=== PATIENT | female | born 1935 | race Caucasian/White ===

== ENCOUNTER → 2016-08-28 | Outpatient (CLI) | payer MEDICARE ==
[2016-08-20 15:00] VITALS: BP 139/69
[~2016-08-28] MED LIST: ACET325T21 PO; ALPR0.25 PO; ALPR0.254 PO; AMLO-254 PO; AMLO5TAB4 PO; ASPI-482 PO; ASPI81TA2 PO; ATEN25TA PO; ATEN50TA PO; CALC-67 PO; CHOL20002 PO; CHOL400C2 PO; DONE5TAB33 PO; ESCI20TA10 PO; FERR325T31 PO; FURO40TA4 PO; HYDR-2678 PO; HYDR200T PO; HYDR200T5 PO; IRON18TA PO; LEVO100T5 PO; LEVO500T38 PO; LEVO88TA4 PO; LOSA100T6 PO; OMEG1CAP16 PO; OMEG1CAP6 PO; PANT40TA3 PO; PILO5TAB PO; POTA20IV IV; POTA20TA82 PO; PRAM0.25 PO; TRAM50TA PO; VALS160T3 PO; VITA100C4 PO; VITA100T5 PO
--- NOTE | 2016-08-28 12:09 | KCIC ---
PROCEDURE CT head without contrast. HISTORY Increased confusion, elevated blood pressure, depression, dementia. TECHNIQUE Helical CT imaging of the brain is performed without IV contrast. PQRS: One or more the following individualized dose reduction techniques were utilized for the study: 1. Automated exposure control. 2. Adjustment of the mA and/or kV according to patient size. 3. Use of iterative reconstruction technique. COMPARISON None. FINDINGS There is no midline shift or mass effect. No extra-axial fluid collection or intraparenchymal hemorrhage. Martinez-white matter differentiation is preserved. The ventricles and sulci are prominent, consistent with age-related cerebral atrophy. Ventricles are out of proportion to sulci which may reflect central atrophy. In the appropriate clinical setting normal pressure hydrocephalus is another consideration. There is periventricular white matter hypoattenuation, nonspecific but commonly due to chronic small vessel ischemic disease in a patient of this age. Tiny mucous retention cyst or polyp of left sphenoid sinus. The other visualized paranasal sinuses and mastoid air cells are clear. The globes and orbits appear intact. No acute calvarial abnormality. IMPRESSION 1. No acute intracranial abnormality. 2. Senescent changes. Electronically signed by: Isai Urbina MD (Aug 28, 2016 12:08:48)
== END | disposition home or self-care (01) ==
LOC: KCIC CT 10:00
DX: R41.0 Disorientation, unspecified (principal)
CPT/HCPCS: 70450

== ENCOUNTER 2016-09-15 09:39 | Inpatient (IN) | payer MEDICARE ==
[~2016-09-15] VITALS: Ht 167.6 cm; Wt 68.6 kg
[2016-09-15] MEDS ORDERED: IV NORMAL SALINE 1000ML BAG 1,000 ML IV ONE ×2 (10:15→17:15)
--- NOTE | 2016-09-15 10:37 | PHYS DOC ---
Past Medical History Past Medical History: Dementia, Depression, Hypertension, Hypothyroid, Renal Disease Additional Past Medical Histor: RLS, LINK monitor, PARKINSONS,VIT B DEF Past Surgical History: Other Additional Past Surgical Histo: Colon Resection, hemorroidectomy Alcohol Use: None Drug Use: None Adult General Chief Complaint Chief Complaint: ALTERED MENTAL STATUS HPI HPI Patient is a 80 year old female who presents with altered mental status. The patient's symptoms have been present for the past week and have progressively gotten worse. The patient has history of dementia and at baseline is confused but alert and talkative. The patient has had increasing lethargy since time of onset. Patient has had decreased oral intake during that time. Patient was recently treated for urinary tract infection and has finished antibiotic therapy. No reported fevers. Patient unable to provide any history due to altered mental status. Patient was found to be hypoxic by nursing staff and placed on 2 L nasal cannula. Review of Systems Review of Systems Unable to obtain from patient due to profound confusion Current Medications Current Medications Current Medications Medications (Trade) Dose Ordered Sig/Kathrine Start Time Stop Time Status Last Admin Dose Admin Sodium Chloride (Iv Sodium Chloride 0.9% 1000ml Bag) 1,000 ml @ 125 mls/hr 1X ONCE 09/15/16 10:15 09/15/16 18:14 09/15/16 11:45 125 MLS/HR Allergies Allergies Allergies Coded Allergies Type Severity Reaction Last Updated Verified naproxen Allergy Intermediate 11/02/14 Yes lisinopril Allergy Mild COUGH 01/10/15 Yes donepezil Adverse Reaction Mild 08/16/16 Yes Physical Exam Physical Exam Constitutional: Lethargic, confused, follows commands, afebrile [] HENT: Normocephalic, atraumatic, bilateral external ears normal, oropharynx moist, no oral exudates, nose normal. [] Eyes: PERRLA, EOMI, conjunctiva normal, no discharge. [] Neck: Normal range of motion, no tenderness, supple, no stridor. [] Cardiovascular:Heart rate regular rhythm, no murmur [] Lungs & Thorax: Mildly restricted air movement bilaterally, rhonchi bilaterally , no rales [] Abdomen: Bowel sounds normal, soft, no tenderness, no masses, no pulsatile masses. [] Skin: Warm, dry, no erythema, no rash. [] Back: No tenderness, no CVA tenderness. [] Extremities: No tenderness, no cyanosis, no clubbing, ROM intact, no edema. [] Neurologic: Lethargic, oriented to self only, normal motor function, normal sensory function, no focal deficits noted. [] Current Patient Data Vital Signs Vital Signs Date Time Temp Pulse Resp B/P Pulse Ox O2 Delivery O2 Flow Rate FiO2 09/15/16 10:40 70 18 140/68 95 Nasal Cannula 2 09/15/16 09:39 99.0 99.0 Lab Values Laboratory Tests Test 09/15/16 09:52 09/15/16 10:35 White Blood Count 13.7x10^3/uL (4.0-11.0) H Red Blood Count 3.73x10^6/uL (3.50-5.40) Hemoglobin 10.9g/dL (12.0-15.5) L Hematocrit 32.9% (36.0-47.0) L Mean Corpuscular Volume 88fL (79-100) Mean Corpuscular Hemoglobin 29pg (25-35) Mean Corpuscular Hemoglobin Concent 33g/dL (31-37) Red Cell Distribution Width 14.0% (11.5-14.5) Platelet Count 166x10^3/uL (140-400) Neutrophils (%) (Auto) 85% (31-73) H Lymphocytes (%) (Auto) 6% (24-48) L Monocytes (%) (Auto) 8% (0-9) Eosinophils (%) (Auto) 0% (0-3) Basophils (%) (Auto) 0% (0-3) Neutrophils # (Auto) 11.7x10^3uL (1.8-7.7) H Lymphocytes # (Auto) 0.8x10^3/uL (1.0-4.8) L Monocytes # (Auto) 1.1x10^3/uL (0.0-1.1) Eosinophils # (Auto) 0.0x10^3/uL (0.0-0.7) Basophils # (Auto) 0.0x10^3/uL (0.0-0.2) Sodium Level 137mmol/L (136-145) Potassium Level 4.9mmol/L (3.5-5.1) Chloride Level 102mmol/L (98-107) Carbon Dioxide Level 21mmol/L (21-32) Anion Gap 14 (6-14) Blood Urea Nitrogen 41mg/dL (7-20) H Creatinine 2.2mg/dL (0.6-1.0) H Estimated GFR (Cockcroft-Gault) 21.5 BUN/Creatinine Ratio 19 (6-20) Glucose Level 110mg/dL (70-99) H Lactic Acid Level 0.7mmol/L (0.4-2.0) Calcium Level 9.6mg/dL (8.5-10.1) Magnesium Level 1.9mg/dL (1.8-2.4) Total Bilirubin 0.3mg/dL (0.2-1.0) Aspartate Amino Transferase (AST) 33U/L (15-37) Alanine Aminotransferase (ALT) 26U/L (14-59) Alkaline Phosphatase 102U/L (46-116) Total Protein 7.1g/dL (6.4-8.2) Albumin 3.4g/dL (3.4-5.0) Albumin/Globulin Ratio 0.9 (1.0-1.7) L Urine Collection Type U cath Urine Color Yellow Urine Clarity Clear Urine pH 5.5 Urine Specific [place] 1.020 Urine Protein 30mg/dL (NEG-TRACE) Urine Glucose (UA) Negativemg/dL (NEG) Urine Ketones (Stick) Negativemg/dL (NEG) Urine Blood Negative (NEG) Urine Nitrite Negative (NEG) Urine Bilirubin Small (NEG) Urine Urobilinogen Dipstick 0.2mg/dL (0.2 mg/dL) Urine Leukocyte Esterase Negative (NEG) Urine RBC 0/HPF (0-2) Urine WBC 0/HPF (0-4) Urine Amorphous Sediment Present/HPF Urine Bacteria 0/HPF (0-FEW) Urine Opiates Screen Neg (NEG) Urine Methadone Screen Neg (NEG) Urine Barbiturates Neg (NEG) Urine Phencyclidine Screen Neg (NEG) Urine Amphetamine/Methamphetamine Neg (NEG) Urine Benzodiazepines Screen Pos (NEG) Urine Cocaine Screen Neg (NEG) Urine Cannabinoids Screen Neg (NEG) Urine Ethyl Alcohol Neg (NEG) Laboratory Tests 09/15/16 09:52 Laboratory Tests 09/15/16 09:52 EKG EKG Interpreted by me: Heart rate 70, sinus rhythm, normal intervals, normal axis, no acute ST/T-wave abnormalities present [] Radiology/Procedures Radiology/Procedures [address] [place] [address] IMAGING REPORT Signed PATIENT: ELSA SHUKLA ACCOUNT: [id number] : 1935 LOCATION: ER AGE: 80 SEX: F EXAM STATUS: PRE ER ORD. PHYSICIAN: NJ PALOMO MD REASON: cough, altered mental status PROCEDURE: PORTABLE CHEST 1V Single view chest History:cough, altered mental status An AP view of the chest is submitted. Comparison: 08/14/2016. Findings: There is no significant infiltrate, pleural effusion, or pneumothorax. The pericardial cardiac silhouette is within normal limits in size. The trachea is in the midline. There is atherosclerotic carotid calcification aortic arch, somewhat tortuous thoracic aorta. Impression: There is no evidence of acute cardiopulmonary disease. DICTATED and SIGNED BY: ESTEFANI WEAVER MD DATE: 09/15/16 1032 CC: NJ PALOMO MD; LUCERO WISE MD ~ [] Course & Med Decision Making Course & Med Decision Making Pertinent Labs and Imaging studies reviewed. (See chart for details) Patient started on IV fluids in the emergency department. The patient did not show any evidence of active infection on her workup. Patient's symptoms appear consistent with dehydration at this time. The patient will continue on IV hydration in hospital due to continued altered mental status. Patient admitted to Dr. Early. Dragon Disclaimer Dragon Disclaimer This electronic medical record was generated, in whole or in part, using a voice recognition dictation system. Departure Departure Impression: Primary Impression: Acute metabolic encephalopathy Additional Impressions: Acute renal failure Dehydration Disposition: ADMITTED INPATIENT Admitting Physician: Thomas Early Condition: STABLE Referrals: LUCERO WISE MD (PCP) Problem Qualifiers Additional Impressions: Acute renal failure Acute renal failure type: unspecified Qualified Code: N17.9 - Acute kidney failure, unspecified NJ PALOMO MD Sep 15, 2016 10:37
[2016-09-15 10:40] LABS: BASO % 0 % (0-3); EOS % 0 % (0-3); HEMATOCRIT 32.9 % (36.0-47.0); HEMOGLOBIN 10.9 g/dL (12.0-15.5); LYMPH # 0.8 x10^3/uL (1.0-4.8); LYMPH % 6 % (24-48); MEAN CORPUSCULAR HEMOGLOBIN 29 pg (25-35); MEAN CORPUSCULAR HGB CONC 33 g/dL (31-37); MEAN CORPUSCULAR VOLUME 88 fL (79-100); MONO % 8 % (0-9); NEUT % 85 % (31-73); PLATELET COUNT 166 x10^3/uL (140-400); RED BLOOD COUNT 3.73 x10^6/uL (3.50-5.40); WHITE BLOOD COUNT 13.7 x10^3/uL (4.0-11.0)
[2016-09-15 10:42] LABS: CALCIUM 9.6 mg/dL (8.5-10.1); CREATININE 2.2 mg/dL (0.6-1.0); GFR 21.5; POTASSIUM 4.9 mmol/L (3.5-5.1)
[2016-09-15 10:48] LABS: ALBUMIN 3.4 g/dL (3.4-5.0); ALBUMIN/GLOBULIN RATIO 0.9 (1.0-1.7); MAGNESIUM 1.9 mg/dL (1.8-2.4); TOTAL BILIRUBIN 0.3 mg/dL (0.2-1.0); TOTAL PROTEIN 7.1 g/dL (6.4-8.2)
[2016-09-15 10:51] LABS: BILIRUBIN,URINE SMALL (NEG); GLUCOSE,URINE NEGATIVE (NEG); NITRITE,URINE NEGATIVE (NEG); PH,URINE 5.5; PROTEIN,URINE 30 mg/dL (NEG-TRACE); UROBILINOGEN,URINE 0.2 mg/dL (0.2 mg/dL)
[2016-09-15 10:57] LABS: BARBITURATES NEG (NEG); BENZODIAZEPINES POS (NEG); CANNABINOIDS NEG (NEG); COCAINE NEG (NEG); METHADONE NEG (NEG); OPIATES NEG (NEG); PHENCYCLIDINE NEG (NEG)
[2016-09-15 11:10] LABS: BACTERIA,URINE 0 /HPF (0-FEW); ETHANOL, URINE NEG (NEG); RBC,URINE 0 /HPF (0-2); WBC,URINE 0 /HPF (0-4)
--- NOTE | 2016-09-15 12:23 | EKG ---
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
--- NOTE | 2016-09-15 14:11 | RAD ---
Head CT without contrast History:altered mental status Technique: Noncontrast CT imaging was acquired of the head. PQRS Compliance Statement: One or more of the following individualized dose reduction techniques were utilized for this examination: 1. Automated exposure control 2. Adjustment of the mA and/or kV according to patient size 3. Use of iterative reconstruction technique Comparison: 08/28/2016 Findings: There is again [id number] lateral and mild third ventriculomegaly, somewhat disproportionate to the sulcal spaces although mild generalized supratentorial atrophy present. No acute intracranial hemorrhage is identified. There is again some patchy mild ill-defined low-density of the supratentorial white matter bilaterally. There is atherosclerotic calcification of the carotid siphons bilaterally. There is now small air-fluid level of the left sphenoid sinus. There is no new significant intra-axial mass-effect, midline shift, or abnormal extra-axial fluid collection. There is no evidence of acute parenchymal or extraaxial hemorrhage. The mastoid air cells are aerated. No acute osseous abnormality is identified. Impression: 1. Intracranial findings are unchanged compared with previous exam. If there is suspicion for evolving or acute ischemia, follow-up CT or MRI may be beneficial. There is again third and lateral ventriculomegaly somewhat disproportionate to sulcal spaces, may be due to more central atrophy unless clinical suspicion for normal pressure hydrocephalus. Ill-defined low-density of the supratentorial white matter is nonspecific, most commonly due to chronic microvascular ischemic disease in a patient this age. 2. There is now tiny left sphenoid sinus air-fluid level.
[2016-09-15] MEDS: IV NORMAL SALINE 1000ML BAG 1,000 ML IV SCH ×5 (15:23→23:32)
[2016-09-15] MEDS ORDERED: ONDANSETRON PF 4 MG/2 ML VIAL. IV PRN ×2 (15:30→17:15)
[2016-09-15] MEDS ORDERED: ACETAMINOPHEN 325 MG TABLET. PO PRN ×2 (15:30→17:15)
--- NOTE | 2016-09-15 16:00 | ACF ---
Admission Forms Criteria MENTAL STATUS CHANGE Clinical Indications for Inpatient Care (Place 'X' for any and all applicable criteria): Ongoing inpatient care may be needed for ANY ONE of the following(1)(2)(3)(5)(6) : [X]I. Suspected serious etiology (eg, medical disorder, PLANT GUIDE event) of mental status change [ ]II. Danger to self or others not manageable at lower level of care [ ]III. Grave disability (eg, inability to perform self care necessary at lower level of care) [ ]IV. Agitation or inappropriate behavior interfering with care for primary condition (eg, attempting to discontinue lines or drains prematurely, unable to cooperate with respiratory care) [ ]V. Delirium [A] [D][E] as described by ANY ONE of the following(26): [ ]a) Delirium due to alcohol or sedative [F] withdrawal [ ]b) Delirium of uncertain etiology that has not responded to appropriate empiric treatment [ ]c) Delirium that prevents performance of a life-sustaining function (eg, feeding or hydrating oneself) [ ]. General contraindications and/or Inappropriate clinical situations for Observational Care in patients with Mental Status Change, when ANY ONE of the following is required: [ ]a) Prediction of prolongation of LOS based on ANY ONE of the following may be considered as a contraindication for observational care 2, 3, 4, 5, 6, 7, 8, 9, 10, 11 [ ]i) Age > 65 yrs. [ ]ii) Patient arriving by ambulance [ ]iii) Patient with high acuity [ ]iv) Patient requiring vital sign monitoring [ ]v) Patient on IV medication [ ]b) Systolic blood pressures 180mmHg 3,12 [ ]c) Patient with altered mental status including delirium and other alteration of consciousness, (3) [ ]d) Patient whose discharge disposition will be to a penitentiary home or rehabilitation home should not be managed in Emergency Department Observation Unit. CMS rule requires 3 days hospital stay before such placement.3,13 [ ]e) Patient with failure to thrive due to broad array of etiologies 3,16,17 [ ]f) Inability to ambulate 3,14 Extended stay beyond goal length of stay for the primary condition may be needed until ALL of the following are present(3)(5): [ ]a) Underlying medical etiology of mental status change is absent, or has been established and adequately treated [ ]b) Danger to self or others is absent or manageable at lower level of care. [ ]c) Behavior crisis management, including physical or chemical restraints, is not required or available at lower level of car [ ]d) Substance or alcohol withdrawal is absent or manageable at lower level of care. [ ]e) Behavioral symptoms (eg, agitation, somnolence, inappropriate behavior) are absent, or are manageable at lower level of care. The original [facility] content created by [facility] has been revised. The portions of the content which have been revised are identified through the use of italic text or in bold, and [facility] has neither reviewed nor approved the modified material. All other unmodified content is copyright [facility]. Please see references footnoted in the original [facility] edition 2016 Admission Criteria Met?: Yes NAS THOMPSON Sep 15, 2016 16:00
--- NOTE | 2016-09-15 17:12 | PDOC1 ---
History and Physical Past Medical History Cardiovascular: CHF, HTN, Other Pulmonary: Pneumonia CENTRAL NERVOUS SYSTEM: Dementia GI: GERD Heme/Onc: Cancer Psych: Depression Rheumatologic: Other Infectious disease: No pertinent hx Renal/: Chronic renal insuff, Urinary Incontinence Endocrine: Hypothyroidism Past Surgical History Past Surgical History: Cataract Removal, Colectomy, Other Family History Family History: Coronary Artery Disease Social History ALCOHOL: none Drugs: None Current Problem List Problem List Problems Medical Problems: (1) Acute metabolic encephalopathy Status: Acute (2) Acute renal failure Status: Acute (3) Dehydration Status: Acute Current Medications Current Medications Current Medications Medications (Trade) Dose Ordered Sig/Kathrine Start Time Stop Time Status Last Admin Dose Admin Acetaminophen (Tylenol) 325 mg PRN Q6HRS PRN 09/15/16 17:15 UNV Acetaminophen/ Hydrocodone Bitart (Lortab 5/325) 1 tab PRN Q6HRS PRN 09/15/16 17:15 UNV Albuterol Sulfate 2.5 mg 2.5 mg PRN Q4HRS PRN 09/15/16 17:15 UNV Hydralazine HCl (Apresoline) 10 mg PRN Q4HRS PRN 09/15/16 17:15 UNV Ondansetron HCl (Zofran) 4 mg PRN Q8HRS PRN 09/15/16 17:15 UNV Sodium Chloride (Iv Sodium Chloride 0.9% 1000ml Bag) 1,000 ml @ 75 mls/hr 1X ONCE 09/15/16 17:15 09/16/16 06:34 UNV Allergies Allergies Allergies Coded Allergies Type Severity Reaction Last Updated Verified naproxen Allergy Intermediate 11/02/14 Yes lisinopril Allergy Mild COUGH 01/10/15 Yes donepezil Adverse Reaction Mild 08/16/16 Yes ROS Review of System CONSTITUTIONAL: dehydration, decreased oral intake EYES: No recent changes SKIN: No rash or itching CARDIOVASCULAR: No chest pain, syncope, palpitations, or edema RESPIRATORY: cough GASTROINTESTINAL: No nausea, vomiting or abdominal pain NEUROLOGICAL: No headaches or weakness ENDOCRINE: No cold or heat intolerance GENITOURINARY: No urgency or frequency of urination MUSCULOSKELETAL: No back pain or joint pain LYMPHATICS: No enlarged lymph nodes PSYCHIATRIC: No anxiety or depression Physical Exam Physical Exam GEN.: No apparent distress. Alert not oriented dehydrated. HEENT: Head is normocephalic, atraumatic NECK: Supple. no jvd LUNGS: Clear to auscultation. normal airflow HEART: RRR, S1, S2 present. Peripheral pulses intact ABDOMEN: Soft, nontender. Positive bowel sounds. EXTREMITIES: Without any cyanosis. NEUROLOGIC: Normal speech, normal tone PSYCHIATRIC: Normal affect, normal mood. SKIN: No visible ulcerations Vitals Vitals Vital Signs Date Time Temp Pulse Resp B/P Pulse Ox O2 Delivery O2 Flow Rate FiO2 09/15/16 15:45 70 18 98 Nasal Cannula 2 09/15/16 13:15 135/81 09/15/16 09:39 99.0 99.0 Labs Labs Laboratory Tests Test 09/15/16 09:52 09/15/16 10:35 White Blood Count 13.7x10^3/uL (4.0-11.0) Red Blood Count 3.73x10^6/uL (3.50-5.40) Hemoglobin 10.9g/dL (12.0-15.5) Hematocrit 32.9% (36.0-47.0) Mean Corpuscular Volume 88fL (79-100) Mean Corpuscular Hemoglobin 29pg (25-35) Mean Corpuscular Hemoglobin Concent 33g/dL (31-37) Red Cell Distribution Width 14.0% (11.5-14.5) Platelet Count 166x10^3/uL (140-400) Neutrophils (%) (Auto) 85% (31-73) Lymphocytes (%) (Auto) 6% (24-48) Monocytes (%) (Auto) 8% (0-9) Eosinophils (%) (Auto) 0% (0-3) Basophils (%) (Auto) 0% (0-3) Neutrophils # (Auto) 11.7x10^3uL (1.8-7.7) Lymphocytes # (Auto) 0.8x10^3/uL (1.0-4.8) Monocytes # (Auto) 1.1x10^3/uL (0.0-1.1) Eosinophils # (Auto) 0.0x10^3/uL (0.0-0.7) Basophils # (Auto) 0.0x10^3/uL (0.0-0.2) Sodium Level 137mmol/L (136-145) Potassium Level 4.9mmol/L (3.5-5.1) Chloride Level 102mmol/L (98-107) Carbon Dioxide Level 21mmol/L (21-32) Anion Gap 14 (6-14) Blood Urea Nitrogen 41mg/dL (7-20) Creatinine 2.2mg/dL (0.6-1.0) Estimated GFR (Cockcroft-Gault) 21.5 BUN/Creatinine Ratio 19 (6-20) Glucose Level 110mg/dL (70-99) Lactic Acid Level 0.7mmol/L (0.4-2.0) Calcium Level 9.6mg/dL (8.5-10.1) Magnesium Level 1.9mg/dL (1.8-2.4) Total Bilirubin 0.3mg/dL (0.2-1.0) Aspartate Amino Transf (AST/SGOT) 33U/L (15-37) Alanine Aminotransferase (ALT/SGPT) 26U/L (14-59) Alkaline Phosphatase 102U/L (46-116) Total Protein 7.1g/dL (6.4-8.2) Albumin 3.4g/dL (3.4-5.0) Albumin/Globulin Ratio 0.9 (1.0-1.7) Urine Collection Type U cath Urine Color Yellow Urine Clarity Clear Urine pH 5.5 Urine Specific [place] 1.020 Urine Protein 30mg/dL (NEG-TRACE) Urine Glucose (UA) Negativemg/dL (NEG) Urine Ketones (Stick) Negativemg/dL (NEG) Urine Blood Negative (NEG) Urine Nitrite Negative (NEG) Urine Bilirubin Small (NEG) Urine Urobilinogen Dipstick 0.2mg/dL (0.2 mg/dL) Urine Leukocyte Esterase Negative (NEG) Urine RBC 0/HPF (0-2) Urine WBC 0/HPF (0-4) Urine Amorphous Sediment Present/HPF Urine Bacteria 0/HPF (0-FEW) Urine Opiates Screen Neg (NEG) Urine Methadone Screen Neg (NEG) Urine Barbiturates Neg (NEG) Urine Phencyclidine Screen Neg (NEG) Urine Amphetamine/Methamphetamine Neg (NEG) Urine Benzodiazepines Screen Pos (NEG) Urine Cocaine Screen Neg (NEG) Urine Cannabinoids Screen Neg (NEG) Urine Ethyl Alcohol Neg (NEG) Laboratory Tests Test 09/15/16 09:52 09/15/16 10:35 White Blood Count 13.7x10^3/uL (4.0-11.0) Red Blood Count 3.73x10^6/uL (3.50-5.40) Hemoglobin 10.9g/dL (12.0-15.5) Hematocrit 32.9% (36.0-47.0) Mean Corpuscular Volume 88fL (79-100) Mean Corpuscular Hemoglobin 29pg (25-35) Mean Corpuscular Hemoglobin Concent 33g/dL (31-37) Red Cell Distribution Width 14.0% (11.5-14.5) Platelet Count 166x10^3/uL (140-400) Neutrophils (%) (Auto) 85% (31-73) Lymphocytes (%) (Auto) 6% (24-48) Monocytes (%) (Auto) 8% (0-9) Eosinophils (%) (Auto) 0% (0-3) Basophils (%) (Auto) 0% (0-3) Neutrophils # (Auto) 11.7x10^3uL (1.8-7.7) Lymphocytes # (Auto) 0.8x10^3/uL (1.0-4.8) Monocytes # (Auto) 1.1x10^3/uL (0.0-1.1) Eosinophils # (Auto) 0.0x10^3/uL (0.0-0.7) Basophils # (Auto) 0.0x10^3/uL (0.0-0.2) Sodium Level 137mmol/L (136-145) Potassium Level 4.9mmol/L (3.5-5.1) Chloride Level 102mmol/L (98-107) Carbon Dioxide Level 21mmol/L (21-32) Anion Gap 14 (6-14) Blood Urea Nitrogen 41mg/dL (7-20) Creatinine 2.2mg/dL (0.6-1.0) Estimated GFR (Cockcroft-Gault) 21.5 BUN/Creatinine Ratio 19 (6-20) Glucose Level 110mg/dL (70-99) Lactic Acid Level 0.7mmol/L (0.4-2.0) Calcium Level 9.6mg/dL (8.5-10.1) Magnesium Level 1.9mg/dL (1.8-2.4) Total Bilirubin 0.3mg/dL (0.2-1.0) Aspartate Amino Transf (AST/SGOT) 33U/L (15-37) Alanine Aminotransferase (ALT/SGPT) 26U/L (14-59) Alkaline Phosphatase 102U/L (46-116) Total Protein 7.1g/dL (6.4-8.2) Albumin 3.4g/dL (3.4-5.0) Albumin/Globulin Ratio 0.9 (1.0-1.7) Urine Collection Type U cath Urine Color Yellow Urine Clarity Clear Urine pH 5.5 Urine Specific [place] 1.020 Urine Protein 30mg/dL (NEG-TRACE) Urine Glucose (UA) Negativemg/dL (NEG) Urine Ketones (Stick) Negativemg/dL (NEG) Urine Blood Negative (NEG) Urine Nitrite Negative (NEG) Urine Bilirubin Small (NEG) Urine Urobilinogen Dipstick 0.2mg/dL (0.2 mg/dL) Urine Leukocyte Esterase Negative (NEG) Urine RBC 0/HPF (0-2) Urine WBC 0/HPF (0-4) Urine Amorphous Sediment Present/HPF Urine Bacteria 0/HPF (0-FEW) Urine Opiates Screen Neg (NEG) Urine Methadone Screen Neg (NEG) Urine Barbiturates Neg (NEG) Urine Phencyclidine Screen Neg (NEG) Urine Amphetamine/Methamphetamine Neg (NEG) Urine Benzodiazepines Screen Pos (NEG) Urine Cocaine Screen Neg (NEG) Urine Cannabinoids Screen Neg (NEG) Urine Ethyl Alcohol Neg (NEG) VTE Prophylaxis Ordered VTE Prophylaxis Devices: Yes VTE Pharmacological Prophylaxi: Yes COLLIN HANSEN MD Sep 15, 2016 17:12
[2016-09-15] MEDS ORDERED: ALBUTEROL SULFATE 2.5 MG/3 ML NEBU. NEB PRN (17:15)
[2016-09-15] MEDS ORDERED: hydrALAZINE 20 MG/ML VIAL. IVP PRN (17:15)
[2016-09-15 19:00] VITALS: BP 133/52
[2016-09-15] MEDS: ENOXAPARIN 30 MG/0.3 ML DISP.SYRIN. SQ SCH (21:29)
--- NOTE | 2016-09-15 22:54 | HP ---
ADMIT DATE: 09/15/2016 CHIEF COMPLAINT: Altered mental status. HISTORY OF PRESENT ILLNESS: This is an 88-year-old female patient with prior history of dementia and several comorbid conditions, brought from the skilled facility for decreased alertness and decreased oral intake, dehydration and altered mental status. The patient at the baseline status has dementia, however, she is talkative and responding to questions, but for the last couple of days, she has not been eating well and her responsiveness has decreased and completely dehydrated. She was recently admitted to the hospital, was diagnosed with urinary tract infection, at that time, she was treated. Also she was admitted to the hospital nearly one month ago here at [facility]. At that time, she was admitted for sepsis and she was intubated for a short period of time. As per the report, she was requiring 2 liters of oxygen per day. PAST MEDICAL HISTORY: Please see my electronic H and P. REVIEW OF SYSTEMS: Please see my electronic H and P. PHYSICAL EXAMINATION: Please see my electronic H and P. LABORATORY FINDINGS: Urine cloudy, clear. PH is 5.5 and specific gravity 1.020. Glucose negative. Ketones negative. Nitrites negative. Chemistry: Sodium is 137, potassium 4.9, chloride 109, and carbon dioxide 21, anion gap is 14, BUN is 41, creatinine is 2.2. Hematology WBC 13.7, hemoglobin is ____, MCV 88, platelets 166. Blood gas; saturation 98%, pH is 7.4, pCO2 32, PO2 111 at 40% on FiO2. Serology, not done. Urine toxicology negative except for benzodiazepines. IMAGING STUDY: CT of the head, no acute process seen. Chest x-ray, no acute cardiopulmonary process seen. ASSESSMENT AND PLAN: 1. Severe dehydration, leukocytosis, altered mental status. 2. Acute on chronic kidney disease. 3. Prior history of dementia. 4. Parkinson's disease. 5. Hypothyroidism. 6. Depression. PLAN: 1. The patient will be admitted to the hospital and will continue IV hydration at 75 mL per hour. 2. Consult Nephrology, monitor renal function. 3. She was recently treated for urinary tract infection. At this time, I did not see any signs of obvious infections. Her chest x-ray is clear and her urinalysis is not suggestive of any UTI on exam. I did not see any other signs of infection. 4. She has failure to thrive and need nutritional support. 5. If the patient not able to eat, we will start her on PPN. 6. Home medications, need discuss with the family members and resume her home medications. 7. Monitor WBC. 8. DVT prophylaxis with Lovenox. 9. Physical Therapy and Occupational Therapy. 10. Prognosis, guarded. COLLIN HANSEN MD DR: GILLES/mikey JOB#: [id number] / [id number] TANYA
[2016-09-15 23:46] VITALS: BP 140/54
[2016-09-16] MEDS ORDERED: ALBU2.5V5 NEB (00:57)
[2016-09-16] MEDS ORDERED: SULF1TAB24 PO (00:57)
[2016-09-16] MEDS ORDERED: GUAI600T28 PO (00:57)
[2016-09-16] MEDS: ALPRAZOLAM 0.25 MG TABLET PO SCH ×3 (01:35→20:31)
[2016-09-16] MEDS: TRAMADOL 50 MG TABLET. PO PRN ×2 (01:35→20:37)
[2016-09-16 03:00] VITALS: BP 140/70
[2016-09-16 05:03] LABS: BASO % 0 % (0-3); EOS % 0 % (0-3); HEMATOCRIT 30.4 % (36.0-47.0); LYMPH # 1.1 x10^3/uL (1.0-4.8); LYMPH % 10 % (24-48); MEAN CORPUSCULAR HEMOGLOBIN 30 pg (25-35); MEAN CORPUSCULAR HGB CONC 33 g/dL (31-37); MEAN CORPUSCULAR VOLUME 90 fL (79-100); MONO % 8 % (0-9); NEUT % 81 % (31-73); PLATELET COUNT 136 x10^3/uL (140-400); RED BLOOD COUNT 3.38 x10^6/uL (3.50-5.40); RED CELL DISTRIBUTION WIDTH 14.2 % (11.5-14.5); WHITE BLOOD COUNT 10.6 x10^3/uL (4.0-11.0)
[2016-09-16 05:25] LABS: CREATININE 1.5 mg/dL (0.6-1.0); GFR 33.4; POTASSIUM 4.2 mmol/L (3.5-5.1)
[2016-09-16 07:00] VITALS: BP 138/53
[2016-09-16 11:00] VITALS: BP 155/60
[2016-09-16] MEDS ORDERED: ACETAMINOPHEN 325 MG TABLET. PO PRN (11:30)
[2016-09-16] MEDS ORDERED: ALBUTEROL SULFATE 2.5 MG/3 ML NEBU. NEB PRN (11:30)
--- NOTE | 2016-09-16 11:53 | PDOC ---
PROGRESS NOTES Chief Complaint Chief Complaint 1. Metabolic Encephalopathy 2. Severe dehydration 3. Leukocytosis 4. AMS 5. Acute on chronic kidney disease 6. Prior history of dementia 7. Parkinson's disease 8. Hypothyroidism 9. Depression History of Present Illness History of Present Illness Pt doing well today upon arrival to her room. Still pleasantly confused. Will answer some questioning. Daughter at bedside states that she feels the pt is much improved since yesterday. Daughter also stated that pt has a baseline dementia. JOSHUA RN- VSS; Pt doing well Vitals Vitals Vital Signs Date Time Temp Pulse Resp B/P Pulse Ox O2 Delivery O2 Flow Rate FiO2 09/16/16 11:00 97.9 65 20 155/60 93 Room Air 97.9 09/15/16 20:15 2.0 Physical Exam Physical Exam Lips and oral mucosa dry; Adult diaper on; Left knee has bruise present General: Alert, Cooperative, No acute distress Heart: Regular rate, No murmurs, Other (no rubs; Heart sounds distant) Lungs: Clear, Other (no wheezes) Abdomen: Normal bowel sounds, No tenderness, No hepatosplenomegaly Extremities: No cyanosis, No edema, Normal pulses Skin: No rashes, No breakdown Labs LABS Laboratory Tests Test 09/16/16 03:58 White Blood Count 10.6x10^3/uL (4.0-11.0) Red Blood Count 3.38x10^6/uL (3.50-5.40) Hemoglobin 10.0g/dL (12.0-15.5) Hematocrit 30.4% (36.0-47.0) Mean Corpuscular Volume 90fL (79-100) Mean Corpuscular Hemoglobin 30pg (25-35) Mean Corpuscular Hemoglobin Concent 33g/dL (31-37) Red Cell Distribution Width 14.2% (11.5-14.5) Platelet Count 136x10^3/uL (140-400) Neutrophils (%) (Auto) 81% (31-73) Lymphocytes (%) (Auto) 10% (24-48) Monocytes (%) (Auto) 8% (0-9) Eosinophils (%) (Auto) 0% (0-3) Basophils (%) (Auto) 0% (0-3) Neutrophils # (Auto) 8.6x10^3uL (1.8-7.7) Lymphocytes # (Auto) 1.1x10^3/uL (1.0-4.8) Monocytes # (Auto) 0.8x10^3/uL (0.0-1.1) Eosinophils # (Auto) 0.0x10^3/uL (0.0-0.7) Basophils # (Auto) 0.0x10^3/uL (0.0-0.2) Sodium Level 139mmol/L (136-145) Potassium Level 4.2mmol/L (3.5-5.1) Chloride Level 105mmol/L (98-107) Carbon Dioxide Level 21mmol/L (21-32) Anion Gap 13 (6-14) Blood Urea Nitrogen 32mg/dL (7-20) Creatinine 1.5mg/dL (0.6-1.0) Estimated GFR (Cockcroft-Gault) 33.4 Glucose Level 69mg/dL (70-99) Calcium Level 9.0mg/dL (8.5-10.1) Review of Systems Review of Systems ROS limited because of pts baseline dementia Did admit to weakness when asked Did complain of hunger Assessment and Plan Assessmemt and Plan Problems Medical Problems: (1) Acute metabolic encephalopathy Status: Acute (2) Acute renal failure Status: Acute (3) Dehydration Status: Acute 1. Metabolic Encephalopathy 2. Severe dehydration 3. Leukocytosis 4. AMS 5. Acute on chronic kidney disease 6. Prior history of dementia 7. Parkinson's disease 8. Hypothyroidism 9. Depression Plan: - Leukocytosis has resolved - Will continue pt on PO Bactrim - Nephro Consulted - Will continue IVF administration - Plan to start Procalamine 75cc/hr - SNU Evaluation placed for evaluation of pts status/ability to return to [facility]; Recently discharged from [facility] - Will recheck Labs in the AM- Labs today improved - Will reconcile meds today and restart home medications - Will change diet to Regular diet as tolerated - PT/OT to evaluate and treat as needed Problems: Comment Review of Relevant I have reviewed the following items sheridan (where applicable) has been applied. Labs Laboratory Tests Test 09/15/16 09:52 09/15/16 10:35 09/16/16 03:58 White Blood Count 13.7x10^3/uL (4.0-11.0) 10.6x10^3/uL (4.0-11.0) Red Blood Count 3.73x10^6/uL (3.50-5.40) 3.38x10^6/uL (3.50-5.40) Hemoglobin 10.9g/dL (12.0-15.5) 10.0g/dL (12.0-15.5) Hematocrit 32.9% (36.0-47.0) 30.4% (36.0-47.0) Mean Corpuscular Volume 88fL (79-100) 90fL (79-100) Mean Corpuscular Hemoglobin 29pg (25-35) 30pg (25-35) Mean Corpuscular Hemoglobin Concent 33g/dL (31-37) 33g/dL (31-37) Red Cell Distribution Width 14.0% (11.5-14.5) 14.2% (11.5-14.5) Platelet Count 166x10^3/uL (140-400) 136x10^3/uL (140-400) Neutrophils (%) (Auto) 85% (31-73) 81% (31-73) Lymphocytes (%) (Auto) 6% (24-48) 10% (24-48) Monocytes (%) (Auto) 8% (0-9) 8% (0-9) Eosinophils (%) (Auto) 0% (0-3) 0% (0-3) Basophils (%) (Auto) 0% (0-3) 0% (0-3) Neutrophils # (Auto) 11.7x10^3uL (1.8-7.7) 8.6x10^3uL (1.8-7.7) Lymphocytes # (Auto) 0.8x10^3/uL (1.0-4.8) 1.1x10^3/uL (1.0-4.8) Monocytes # (Auto) 1.1x10^3/uL (0.0-1.1) 0.8x10^3/uL (0.0-1.1) Eosinophils # (Auto) 0.0x10^3/uL (0.0-0.7) 0.0x10^3/uL (0.0-0.7) Basophils # (Auto) 0.0x10^3/uL (0.0-0.2) 0.0x10^3/uL (0.0-0.2) Sodium Level 137mmol/L (136-145) 139mmol/L (136-145) Potassium Level 4.9mmol/L (3.5-5.1) 4.2mmol/L (3.5-5.1) Chloride Level 102mmol/L (98-107) 105mmol/L (98-107) Carbon Dioxide Level 21mmol/L (21-32) 21mmol/L (21-32) Anion Gap 14 (6-14) 13 (6-14) Blood Urea Nitrogen 41mg/dL (7-20) 32mg/dL (7-20) Creatinine 2.2mg/dL (0.6-1.0) 1.5mg/dL (0.6-1.0) Estimated GFR (Cockcroft-Gault) 21.5 33.4 BUN/Creatinine Ratio 19 (6-20) Glucose Level 110mg/dL (70-99) 69mg/dL (70-99) Lactic Acid Level 0.7mmol/L (0.4-2.0) Calcium Level 9.6mg/dL (8.5-10.1) 9.0mg/dL (8.5-10.1) Magnesium Level 1.9mg/dL (1.8-2.4) Total Bilirubin 0.3mg/dL (0.2-1.0) Aspartate Amino Transf (AST/SGOT) 33U/L (15-37) Alanine Aminotransferase (ALT/SGPT) 26U/L (14-59) Alkaline Phosphatase 102U/L (46-116) Total Protein 7.1g/dL (6.4-8.2) Albumin 3.4g/dL (3.4-5.0) Albumin/Globulin Ratio 0.9 (1.0-1.7) Urine Collection Type U cath Urine Color Yellow Urine Clarity Clear Urine pH 5.5 Urine Specific [place] 1.020 Urine Protein 30mg/dL (NEG-TRACE) Urine Glucose (UA) Negativemg/dL (NEG) Urine Ketones (Stick) Negativemg/dL (NEG) Urine Blood Negative (NEG) Urine Nitrite Negative (NEG) Urine Bilirubin Small (NEG) Urine Urobilinogen Dipstick 0.2mg/dL (0.2 mg/dL) Urine Leukocyte Esterase Negative (NEG) Urine RBC 0/HPF (0-2) Urine WBC 0/HPF (0-4) Urine Amorphous Sediment Present/HPF Urine Bacteria 0/HPF (0-FEW) Urine Opiates Screen Neg (NEG) Urine Methadone Screen Neg (NEG) Urine Barbiturates Neg (NEG) Urine Phencyclidine Screen Neg (NEG) Urine Amphetamine/Methamphetamine Neg (NEG) Urine Benzodiazepines Screen Pos (NEG) Urine Cocaine Screen Neg (NEG) Urine Cannabinoids Screen Neg (NEG) Urine Ethyl Alcohol Neg (NEG) Laboratory Tests Test 09/16/16 03:58 White Blood Count 10.6x10^3/uL (4.0-11.0) Red Blood Count 3.38x10^6/uL (3.50-5.40) Hemoglobin 10.0g/dL (12.0-15.5) Hematocrit 30.4% (36.0-47.0) Mean Corpuscular Volume 90fL (79-100) Mean Corpuscular Hemoglobin 30pg (25-35) Mean Corpuscular Hemoglobin Concent 33g/dL (31-37) Red Cell Distribution Width 14.2% (11.5-14.5) Platelet Count 136x10^3/uL (140-400) Neutrophils (%) (Auto) 81% (31-73) Lymphocytes (%) (Auto) 10% (24-48) Monocytes (%) (Auto) 8% (0-9) Eosinophils (%) (Auto) 0% (0-3) Basophils (%) (Auto) 0% (0-3) Neutrophils # (Auto) 8.6x10^3uL (1.8-7.7) Lymphocytes # (Auto) 1.1x10^3/uL (1.0-4.8) Monocytes # (Auto) 0.8x10^3/uL (0.0-1.1) Eosinophils # (Auto) 0.0x10^3/uL (0.0-0.7) Basophils # (Auto) 0.0x10^3/uL (0.0-0.2) Sodium Level 139mmol/L (136-145) Potassium Level 4.2mmol/L (3.5-5.1) Chloride Level 105mmol/L (98-107) Carbon Dioxide Level 21mmol/L (21-32) Anion Gap 13 (6-14) Blood Urea Nitrogen 32mg/dL (7-20) Creatinine 1.5mg/dL (0.6-1.0) Estimated GFR (Cockcroft-Gault) 33.4 Glucose Level 69mg/dL (70-99) Calcium Level 9.0mg/dL (8.5-10.1) Microbiology 09/15/16 Blood Culture - Preliminary, Resulted NO GROWTH AFTER 1 DAY Medications Current Medications Sodium Chloride (Iv Sodium Chloride 0.9% 1000ml Bag) 1,000 ml @ 125 mls/hr 1X ONCE IV Last administered on 09/15/16 11:45; Start 09/15/16 at 10:15; Stop 07/20 at 18:14; Status DC Ondansetron HCl 4 mg 4 mg PRN Q8HRS PRN IV NAUSEA/VOMITING; Start 09/15/16 at 15:30; Stop 09/15/16 at 17:12; Status DC Sodium Chloride (Iv Sodium Chloride 0.9% 1000ml Bag) 1,000 ml @ 125 mls/hr Q8H IV Last administered on 09/15/16 15:23; Start 09/15/16 at 15:23; Stop at 15:22 Acetaminophen (Tylenol) 650 mg PRN Q4HRS PRN PO FEVER; Start 09/15/16 at 15:30 ; Stop 09/15/16 at 17:12; Status DC Acetaminophen (Tylenol) 325 mg PRN Q6HRS PRN PO MILD PAIN / TEMP; Start at 17:15 Acetaminophen/ Hydrocodone Bitart (Lortab 5/325) 1 tab PRN Q6HRS PRN PO MODERATE TO SEVERE PAIN; Start 09/15/16 at 17:15 Hydralazine HCl (Apresoline) 10 mg PRN Q4HRS PRN IVP ELEVATED BP, SEE COMMENTS ; Start 09/15/16 at 17:15 Ondansetron HCl (Zofran) 4 mg PRN Q8HRS PRN IV NAUSEA/VOMITING; Start 09/15/16 at 17:15 Albuterol Sulfate 2.5 mg 2.5 mg PRN Q4HRS PRN NEB SHORTNESS OF BREATH; Start at 17:15 Sodium Chloride 1,000 ml @ 75 mls/hr 1X ONCE IV ; Start 09/15/16 at 17:15; Stop 09/15/16 at 17:15; Status DC Sodium Chloride (Iv Sodium Chloride 0.9% 1000ml Bag) 1,000 ml @ 75 mls/hr DAILY IV Last administered on 09/15/16 21:35; Start 09/15/16 at 17:15; Stop at 17:14 Enoxaparin Sodium (Lovenox 30mg Syringe) 30 mg Q24H SQ Last administered on 21:29; Start 09/15/16 at 18:00 Alprazolam (Xanax) 0.25 mg BID PO Last administered on 09/16/16 10:28; Start 09/16/16 at 01:15 Tramadol HCl (Ultram) 50 mg PRN Q6HRS PRN PO PAIN Last administered on 01:35; Start 09/16/16 at 01:15 Acetaminophen (Tylenol) 650 mg PRN Q6HRS PRN PO MILD PAIN / TEMP; Start at 11:30 Albuterol Sulfate (Ventolin Neb Soln) 2.5 mg PRN Q4HRS PRN NEB SHORTNESS OF BREATH; Start 09/16/16 at 11:30 Amlodipine Besylate (Norvasc) 10 mg DAILY PO ; Start 09/16/16 at 12:30 Aspirin (Ecotrin) 81 mg DAILY PO ; Start 09/16/16 at 12:30 Atenolol (Tenormin) 37.5 mg DAILY PO ; Start 09/16/16 at 12:30 Ferrous Sulfate (Feosol) 325 mg DAILY PO ; Start 09/16/16 at 12:30 Guaifenesin (Mucinex) 600 mg BID PO ; Start 09/16/16 at 12:30 Hydroxychloroquine Sulfate (Plaquenil) 200 mg DAILY PO ; Start 09/16/16 at 12:30 Levothyroxine Sodium (Synthroid) 100 mcg DAILY07 PO ; Start 09/16/16 at 12:30 Fish Oil (Fish Oil) 1,000 mg BID PO ; Start 09/16/16 at 12:30 [place] HCl (Salagen) 5 mg TID PO ; Start 09/16/16 at 14:00 Pramipexole Dihydrochloride (miraPEX) 0.25 mg DAILY PO ; Start 09/16/16 at 12:30 Trimethoprim/ Sulfamethoxazole (Bactrim Ds) 1 tab BID PO ; Start 09/16/16 at 12: 30 Calcium/Vitamin D (Oscal D 500mg/ 200uts) 1 tab DAILY PO ; Start 09/16/16 at 12: 30 Vitamin D (Vitamin D3) 2,000 unit DAILY PO ; Start 09/16/16 at 12:30 Escitalopram Oxalate (Lexapro) 20 mg DAILY PO ; Start 09/16/16 at 12:30 Losartan Potassium (Cozaar) 100 mg DAILY PO ; Start 09/16/16 at 12:30 Potassium Chloride (Klor-Con) 20 meq DAILYWBKFT PO ; Start 09/16/16 at 12:30 Active Scripts Active Reported Guaifenesin 600 Mg Tablet.er 600 Mg PO BID Bactrim Ds Tablet (Sulfamethoxazole/Trimethoprim) 1 Each Tablet 1 Each PO BID 5 Days Albuterol Sulfate Neb Soln (Albuterol Sulfate) 2.5 Mg/3 Ml Vial.neb 2.5 Mg NEB Q4HRS PRN Acetaminophen 325 Mg Tablet 650 Mg PO PRN Q6HRS PRN Tramadol Hcl 50 Mg Tablet 50 Mg PO Q6H PRN Vitamin E (Vitamin E Acid Succinate) 100 Unit Tablet 100 Unit PO Vitamin D-3 (Cholecalciferol (Vitamin D3)) 2,000 Unit Tablet 2,000 Unit PO DAILY Iron (Ferrous Sulfate) 325 Mg Tablet 325 Mg PO DAILY Aspir 81 (Aspirin) 81 Mg Tablet.dr 81 Mg PO DAILY Pramipexole Dihydrochloride (Pramipexole Di-Hcl) 0.25 Mg Tablet 0.25 Mg PO Fish Oil 1,000 Mg Capsule ([place]-3 Fatty Acids/Fish Oil) 1 Each Capsule 1 Each PO BID Potassium Chloride 20 Meq Tablet.er 20 Meq PO DAILY Plaquenil (Hydroxychloroquine Sulfate) 200 Mg Tablet 200 Mg PO DAILY [place] Hcl 5 Mg Tablet 5 Mg PO TID Lexapro (Escitalopram Oxalate) 20 Mg Tablet 1 Tab PO DAILY Calcium 500 + D Tablet (Calcium Carbonate/Vitamin D3) 1 Each Tablet 1 Each PO DAILY Levothyroxine Sodium 100 Mcg Tablet 1 Tab PO DAILY Xanax (Alprazolam) 0.25 Mg Tablet 1 Tab PO BID Atenolol 50 Mg Tablet 37.5 Mg PO DAILY TAKE 1 AND 1/2 TABLETS DAILY Losartan Potassium 100 Mg Tablet 100 Mg PO DAILY Norvasc (Amlodipine Besylate) 5 Mg Tablet 10 Mg PO DAILY Vitals/I & O Vital Sign - Last 24 Hours 09/15/16 09/15/16 09/15/16 09/15/16 12:45 13:15 14:15 15:45 Pulse 68 80 68 70 Resp 18 18 18 18 B/P 131/66 135/81 Pulse Ox 94 97 99 98 O2 Delivery Nasal Cannula Nasal Cannula Nasal Cannula Nasal Cannula O2 Flow Rate 2 2 2 2 09/15/16 09/15/16 09/15/16 09/15/16 19:00 19:59 20:15 23:46 Temp 99.7 98.8 99.7 98.8 Pulse 71 70 Resp 21 20 B/P 133/52 140/54 Pulse Ox 96 98 O2 Delivery Room Air Nasal Cannula Nasal Cannula Room Air O2 Flow Rate 2.0 2.0 09/16/16 09/16/16 09/16/16 03:00 07:00 11:00 Temp 98.1 98.1 97.9 98.1 98.1 97.9 Pulse 70 66 65 Resp 20 20 20 B/P 140/70 138/53 155/60 Pulse Ox 98 93 93 O2 Delivery Room Air Room Air Room Air Intake and Output 09/15/16 09/15/16 09/16/16 15:00 23:00 07:00 Intake Total 0 ml 150 ml Output Total 450 ml Balance 0 ml -300 ml VARUN HASSAN III DO Sep 16, 2016 11:53
[2016-09-16] MEDS: AA 3%/ELECTROLYTE-TPN SOLN/GLY 1,000 ML IV SCH (13:20)
[2016-09-16] MEDS: ESCITALOPRAM 10 MG TABLET. PO SCH (13:21)
[2016-09-16] MEDS: LEVOTHYROXINE 100 MCG TABLET PO SCH (13:21)
[2016-09-16] MEDS: LOSARTAN POTASSIUM 50 MG TABLET. PO SCH (13:21)
[2016-09-16] MEDS: ASPIRIN ENTERIC COATED 81 MG TABLET.DR. PO SCH (13:22)
[2016-09-16] MEDS: POTASSIUM CHLORIDE 20 MEQ TABLET.ER. PO SCH (13:22)
[2016-09-16] MEDS: OMEGA-3 FATTY ACIDS/FISH OIL 1,000 MG CAPSULE. PO SCH ×2 (13:22→20:31)
[2016-09-16] MEDS: HYDROXYCHLOROQUINE 200 MG TABLET PO SCH (13:23)
[2016-09-16] MEDS: GUAIFENESIN ER 600 MG TABLET.ER PO SCH ×2 (13:23→20:31)
[2016-09-16] MEDS: AMLODIPINE BESYLATE 10 MG TABLET PO SCH (13:23)
[2016-09-16] MEDS: SMZ/TMP 800/160MG TABLET. PO SCH ×2 (13:23→20:31)
[2016-09-16] MEDS: FERROUS SULFATE 325 MG TABLET PO SCH (13:24)
[2016-09-16] MEDS: CHOLECALCIFEROL (VITAMIN D3) 1,000 UNIT TABLET PO SCH (13:24)
[2016-09-16] MEDS: ATENOLOL 25 MG TABLET PO SCH (13:24)
[2016-09-16] MEDS: PILOCARPINE 5 MG TABLET. PO SCH ×2 (14:45→20:31)
[2016-09-16] MEDS: PRAMIPEXOLE 0.25 MG TABLET. PO SCH (14:45)
[2016-09-16] MEDS: CALCIUM CARB/VIT D3 500/200 TABLET PO SCH (14:45)
[2016-09-16 15:00] VITALS: BP 148/46
[2016-09-16] MEDS: ENOXAPARIN 30 MG/0.3 ML DISP.SYRIN. SQ SCH (17:24)
[2016-09-16 19:00] VITALS: BP 121/55
[2016-09-16 23:00] VITALS: BP 125/52
[2016-09-17 03:00] VITALS: BP 130/63
[2016-09-17] MEDS: ACETAMINOPHEN/CODEINE 300/30MG TABLET PO PRN (03:55)
[2016-09-17] MEDS: AA 3%/ELECTROLYTE-TPN SOLN/GLY 1,000 ML IV SCH ×2 (03:56→21:01)
[2016-09-17 04:35] LABS: BASO % 0 % (0-3); EOS % 1 % (0-3); HEMATOCRIT 28.1 % (36.0-47.0); HEMOGLOBIN 9.5 g/dL (12.0-15.5); LYMPH # 1.3 x10^3/uL (1.0-4.8); LYMPH % 16 % (24-48); MEAN CORPUSCULAR HEMOGLOBIN 30 pg (25-35); MEAN CORPUSCULAR HGB CONC 34 g/dL (31-37); MEAN CORPUSCULAR VOLUME 87 fL (79-100); MONO % 11 % (0-9); NEUT % 72 % (31-73); PLATELET COUNT 138 x10^3/uL (140-400); RED BLOOD COUNT 3.22 x10^6/uL (3.50-5.40); RED CELL DISTRIBUTION WIDTH 13.8 % (11.5-14.5)
[2016-09-17 05:01] LABS: CALCIUM 8.7 mg/dL (8.5-10.1); CREATININE 1.2 mg/dL (0.6-1.0); GFR 43.2; POTASSIUM 4.6 mmol/L (3.5-5.1)
[2016-09-17] MEDS: LEVOTHYROXINE 100 MCG TABLET PO SCH (06:22)
[2016-09-17 07:00] VITALS: BP 120/53
[2016-09-17] MEDS: AMLODIPINE BESYLATE 10 MG TABLET PO SCH (10:04)
[2016-09-17] MEDS: ESCITALOPRAM 10 MG TABLET. PO SCH (10:04)
[2016-09-17] MEDS: OMEGA-3 FATTY ACIDS/FISH OIL 1,000 MG CAPSULE. PO SCH ×2 (10:05→21:00)
[2016-09-17] MEDS: PRAMIPEXOLE 0.25 MG TABLET. PO SCH (10:05)
[2016-09-17] MEDS: CALCIUM CARB/VIT D3 500/200 TABLET PO SCH (10:05)
[2016-09-17] MEDS: LOSARTAN POTASSIUM 50 MG TABLET. PO SCH (10:05)
[2016-09-17] MEDS: PILOCARPINE 5 MG TABLET. PO SCH ×3 (10:05→21:00)
[2016-09-17] MEDS: POTASSIUM CHLORIDE 20 MEQ TABLET.ER. PO SCH (10:06)
[2016-09-17] MEDS: GUAIFENESIN ER 600 MG TABLET.ER PO SCH ×2 (10:07→21:00)
[2016-09-17] MEDS: ATENOLOL 25 MG TABLET PO SCH (10:07)
[2016-09-17] MEDS: FERROUS SULFATE 325 MG TABLET PO SCH (10:07)
[2016-09-17] MEDS: SMZ/TMP 800/160MG TABLET. PO SCH ×2 (10:07→21:00)
[2016-09-17] MEDS: CHOLECALCIFEROL (VITAMIN D3) 1,000 UNIT TABLET PO SCH (10:07)
[2016-09-17] MEDS: ALPRAZOLAM 0.25 MG TABLET PO SCH ×2 (10:08→21:00)
[2016-09-17] MEDS: ASPIRIN ENTERIC COATED 81 MG TABLET.DR. PO SCH (10:08)
[2016-09-17] MEDS: HYDROXYCHLOROQUINE 200 MG TABLET PO SCH (10:08)
[2016-09-17 11:00] VITALS: BP 140/53
--- NOTE | 2016-09-17 11:24 | PDOC ---
PROGRESS NOTES Chief Complaint Chief Complaint 1. Metabolic Encephalopathy 2. Severe dehydration 3. Leukocytosis 4. AMS 5. Acute on chronic kidney disease 6. Prior history of dementia 7. Parkinson's disease 8. Hypothyroidism 9. Depression History of Present Illness History of Present Illness Pt doing well today. Still pleasantly confused with same baseline dementia. Daughter at bedside today states she seems better today but still not eating much food by mouth. Discussed that we started pt on Procalamine yesterday. Daughter also stated that her mother starts to "sun down" more in the evenings. No other complaints at this time. JOSHUA RN- VSS Vitals Vitals Vital Signs Date Time Temp Pulse Resp B/P Pulse Ox O2 Delivery O2 Flow Rate FiO2 09/17/16 10:07 57 120/53 09/17/16 07:00 98.1 24 96 Room Air 98.1 09/16/16 08:00 2.0 Physical Exam Physical Exam Adult diaper in place; Left knee has bruise present General: Alert, Cooperative, No acute distress Heart: Regular rate, No murmurs, Other (no rubs; Heart sounds distant) Lungs: Clear, Other (no wheezes) Abdomen: Normal bowel sounds, No tenderness, No hepatosplenomegaly, No masses Extremities: No cyanosis, No edema, Normal pulses Skin: No rashes, No breakdown Labs LABS Laboratory Tests Test 09/17/16 03:35 White Blood Count 8.0x10^3/uL (4.0-11.0) Red Blood Count 3.22x10^6/uL (3.50-5.40) Hemoglobin 9.5g/dL (12.0-15.5) Hematocrit 28.1% (36.0-47.0) Mean Corpuscular Volume 87fL (79-100) Mean Corpuscular Hemoglobin 30pg (25-35) Mean Corpuscular Hemoglobin Concent 34g/dL (31-37) Red Cell Distribution Width 13.8% (11.5-14.5) Platelet Count 138x10^3/uL (140-400) Neutrophils (%) (Auto) 72% (31-73) Lymphocytes (%) (Auto) 16% (24-48) Monocytes (%) (Auto) 11% (0-9) Eosinophils (%) (Auto) 1% (0-3) Basophils (%) (Auto) 0% (0-3) Neutrophils # (Auto) 5.7x10^3uL (1.8-7.7) Lymphocytes # (Auto) 1.3x10^3/uL (1.0-4.8) Monocytes # (Auto) 0.9x10^3/uL (0.0-1.1) Eosinophils # (Auto) 0.1x10^3/uL (0.0-0.7) Basophils # (Auto) 0.0x10^3/uL (0.0-0.2) Sodium Level 136mmol/L (136-145) Potassium Level 4.6mmol/L (3.5-5.1) Chloride Level 104mmol/L (98-107) Carbon Dioxide Level 20mmol/L (21-32) Anion Gap 12 (6-14) Blood Urea Nitrogen 28mg/dL (7-20) Creatinine 1.2mg/dL (0.6-1.0) Estimated GFR (Cockcroft-Gault) 43.2 Glucose Level 86mg/dL (70-99) Calcium Level 8.7mg/dL (8.5-10.1) Review of Systems Review of Systems ROS limited due to pts baseline dementia; Part of ROS obtained from family Complaining of weakness Complaining of decreased appetite- per family at bedside Complaining of increase confusion at end of day Assessment and Plan Assessmemt and Plan Problems Medical Problems: (1) Acute metabolic encephalopathy Status: Acute (2) Acute renal failure Status: Acute (3) Dehydration Status: Acute 1. Metabolic Encephalopathy 2. Severe dehydration 3. Leukocytosis 4. AMS 5. Acute on chronic kidney disease 6. Prior history of dementia 7. Parkinson's disease 8. Hypothyroidism 9. Depression Plan: - Leukocytosis Resolved at this time - Continuing PO Bactrim - Nephro Consulted- appreciate recommendations - Will continue IVF administration - Procalamine 75cc/hr started yesterday and today; will continue at this time - BUN: 28 and Creatinine: 1.2; greatly improved since admission - [facility]U Evaluation placed- at this time patients family discussed with SW that ( Daughter) she would like pt to go back to the [facility] on discharge - Continue Regular home medications - Tolerating Regular Diet - Regular labs in AM - JOSHUA RN- pt lost IV; plan is to place new IV and start PPN back up to supplement the decreased PO intake - PT/OT to evaluate and treat as needed Disposition: Possible d/c back to [facility] tomorrow if the pts dehydration improved Problems: Comment Review of Relevant I have reviewed the following items sheridan (where applicable) has been applied. Labs Laboratory Tests Test 09/15/16 21:30 09/16/16 03:58 09/17/16 03:35 Nasal Screen MRSA (PCR) Positive (Negative) White Blood Count 10.6x10^3/uL (4.0-11.0) 8.0x10^3/uL (4.0-11.0) Red Blood Count 3.38x10^6/uL (3.50-5.40) 3.22x10^6/uL (3.50-5.40) Hemoglobin 10.0g/dL (12.0-15.5) 9.5g/dL (12.0-15.5) Hematocrit 30.4% (36.0-47.0) 28.1% (36.0-47.0) Mean Corpuscular Volume 90fL (79-100) 87fL (79-100) Mean Corpuscular Hemoglobin 30pg (25-35) 30pg (25-35) Mean Corpuscular Hemoglobin Concent 33g/dL (31-37) 34g/dL (31-37) Red Cell Distribution Width 14.2% (11.5-14.5) 13.8% (11.5-14.5) Platelet Count 136x10^3/uL (140-400) 138x10^3/uL (140-400) Neutrophils (%) (Auto) 81% (31-73) 72% (31-73) Lymphocytes (%) (Auto) 10% (24-48) 16% (24-48) Monocytes (%) (Auto) 8% (0-9) 11% (0-9) Eosinophils (%) (Auto) 0% (0-3) 1% (0-3) Basophils (%) (Auto) 0% (0-3) 0% (0-3) Neutrophils # (Auto) 8.6x10^3uL (1.8-7.7) 5.7x10^3uL (1.8-7.7) Lymphocytes # (Auto) 1.1x10^3/uL (1.0-4.8) 1.3x10^3/uL (1.0-4.8) Monocytes # (Auto) 0.8x10^3/uL (0.0-1.1) 0.9x10^3/uL (0.0-1.1) Eosinophils # (Auto) 0.0x10^3/uL (0.0-0.7) 0.1x10^3/uL (0.0-0.7) Basophils # (Auto) 0.0x10^3/uL (0.0-0.2) 0.0x10^3/uL (0.0-0.2) Sodium Level 139mmol/L (136-145) 136mmol/L (136-145) Potassium Level 4.2mmol/L (3.5-5.1) 4.6mmol/L (3.5-5.1) Chloride Level 105mmol/L (98-107) 104mmol/L (98-107) Carbon Dioxide Level 21mmol/L (21-32) 20mmol/L (21-32) Anion Gap 13 (6-14) 12 (6-14) Blood Urea Nitrogen 32mg/dL (7-20) 28mg/dL (7-20) Creatinine 1.5mg/dL (0.6-1.0) 1.2mg/dL (0.6-1.0) Estimated GFR (Cockcroft-Gault) 33.4 43.2 Glucose Level 69mg/dL (70-99) 86mg/dL (70-99) Calcium Level 9.0mg/dL (8.5-10.1) 8.7mg/dL (8.5-10.1) Laboratory Tests Test 09/17/16 03:35 White Blood Count 8.0x10^3/uL (4.0-11.0) Red Blood Count 3.22x10^6/uL (3.50-5.40) Hemoglobin 9.5g/dL (12.0-15.5) Hematocrit 28.1% (36.0-47.0) Mean Corpuscular Volume 87fL (79-100) Mean Corpuscular Hemoglobin 30pg (25-35) Mean Corpuscular Hemoglobin Concent 34g/dL (31-37) Red Cell Distribution Width 13.8% (11.5-14.5) Platelet Count 138x10^3/uL (140-400) Neutrophils (%) (Auto) 72% (31-73) Lymphocytes (%) (Auto) 16% (24-48) Monocytes (%) (Auto) 11% (0-9) Eosinophils (%) (Auto) 1% (0-3) Basophils (%) (Auto) 0% (0-3) Neutrophils # (Auto) 5.7x10^3uL (1.8-7.7) Lymphocytes # (Auto) 1.3x10^3/uL (1.0-4.8) Monocytes # (Auto) 0.9x10^3/uL (0.0-1.1) Eosinophils # (Auto) 0.1x10^3/uL (0.0-0.7) Basophils # (Auto) 0.0x10^3/uL (0.0-0.2) Sodium Level 136mmol/L (136-145) Potassium Level 4.6mmol/L (3.5-5.1) Chloride Level 104mmol/L (98-107) Carbon Dioxide Level 20mmol/L (21-32) Anion Gap 12 (6-14) Blood Urea Nitrogen 28mg/dL (7-20) Creatinine 1.2mg/dL (0.6-1.0) Estimated GFR (Cockcroft-Gault) 43.2 Glucose Level 86mg/dL (70-99) Calcium Level 8.7mg/dL (8.5-10.1) Microbiology 09/16/16 Blood Culture - Preliminary, Resulted NO GROWTH AFTER 1 DAY Medications Current Medications Sodium Chloride (Iv Sodium Chloride 0.9% 1000ml Bag) 1,000 ml @ 125 mls/hr 1X ONCE IV Last administered on 09/15/16t 11:45; Start 09/15/16 at 10:15; Stop 07/20 at 18:14; Status DC Ondansetron HCl 4 mg 4 mg PRN Q8HRS PRN IV NAUSEA/VOMITING; Start 09/15/16 at 15:30; Stop 09/15/16 at 17:12; Status DC Sodium Chloride (Iv Sodium Chloride 0.9% 1000ml Bag) 1,000 ml @ 125 mls/hr Q8H IV Last administered on 09/15/16 15:23; Start 09/15/16 at 15:23; Stop at 15:15; Status DC Acetaminophen (Tylenol) 650 mg PRN Q4HRS PRN PO FEVER; Start 09/15/16 at 15:30 ; Stop 09/15/16 at 17:12; Status DC Acetaminophen (Tylenol) 325 mg PRN Q6HRS PRN PO MILD PAIN / TEMP; Start at 17:15; Stop 09/16/16 at 15:15; Status DC Acetaminophen/ Hydrocodone Bitart (Lortab 5/325) 1 tab PRN Q6HRS PRN PO MODERATE TO SEVERE PAIN; Start 09/15/16 at 17:15 Hydralazine HCl (Apresoline) 10 mg PRN Q4HRS PRN IVP ELEVATED BP, SEE COMMENTS ; Start 09/15/16 at 17:15 Ondansetron HCl (Zofran) 4 mg PRN Q8HRS PRN IV NAUSEA/VOMITING; Start 09/15/16 at 17:15 Albuterol Sulfate 2.5 mg 2.5 mg PRN Q4HRS PRN NEB SHORTNESS OF BREATH; Start at 17:15; Stop 09/16/16 at 15:15; Status DC Sodium Chloride 1,000 ml @ 75 mls/hr 1X ONCE IV ; Start 09/15/16 at 17:15; Stop 09/15/16 at 17:15; Status DC Sodium Chloride (Iv Sodium Chloride 0.9% 1000ml Bag) 1,000 ml @ 75 mls/hr DAILY IV Last administered on 09/15/16 21:35; Start 09/15/16 at 17:15; Stop at 17:14 Enoxaparin Sodium (Lovenox 30mg Syringe) 30 mg Q24H SQ Last administered on 17:24; Start 09/15/16 at 18:00 Alprazolam (Xanax) 0.25 mg BID PO Last administered on 09/17/16 10:08; Start 09/16/16 at 01:15 Tramadol HCl (Ultram) 50 mg PRN Q6HRS PRN PO PAIN Last administered on 20:37; Start 09/16/16 at 01:15 Acetaminophen (Tylenol) 650 mg PRN Q6HRS PRN PO MILD PAIN / TEMP; Start at 11:30 Albuterol Sulfate (Ventolin Neb Soln) 2.5 mg PRN Q4HRS PRN NEB SHORTNESS OF BREATH; Start 09/16/16 at 11:30 Amlodipine Besylate (Norvasc) 10 mg DAILY PO Last administered on 09/17/16 10: 04; Start 09/16/16 at 12:30 Aspirin (Ecotrin) 81 mg DAILY PO Last administered on 09/17/16 10:08; Start at 12:30 Atenolol (Tenormin) 37.5 mg DAILY PO Last administered on 09/17/16 10:07; Start 09/16/16 at 12:30 Ferrous Sulfate (Feosol) 325 mg DAILY PO Last administered on 09/17/16 10:07; Start 09/16/16 at 12:30 Guaifenesin (Mucinex) 600 mg BID PO Last administered on 09/17/16 10:07; Start 09/16/16 at 12:30 Hydroxychloroquine Sulfate (Plaquenil) 200 mg DAILY PO Last administered on 10:08; Start 09/16/16 at 12:30 Levothyroxine Sodium (Synthroid) 100 mcg DAILY07 PO Last administered on 06:22; Start 09/16/16 at 12:30 Fish Oil (Fish Oil) 1,000 mg BID PO Last administered on 09/17/16 10:05; Start 09/16/16 at 12:30 Pilocarpine HCl (Salagen) 5 mg TID PO Last administered on 09/17/16 10:05; Start 09/16/16 at 14:00 Pramipexole Dihydrochloride (miraPEX) 0.25 mg DAILY PO Last administered on 10:05; Start 09/16/16 at 12:30 Trimethoprim/ Sulfamethoxazole (Bactrim Ds) 1 tab BID PO Last administered on 10:07; Start 09/16/16 at 12:30 Calcium/Vitamin D (Oscal D 500mg/ 200uts) 1 tab DAILY PO Last administered on 10:05; Start 09/16/16 at 12:30 Vitamin D (Vitamin D3) 2,000 unit DAILY PO Last administered on 09/17/16 10:07 ; Start 09/16/16 at 12:30 Escitalopram Oxalate (Lexapro) 20 mg DAILY PO Last administered on 09/17/16 10 :04; Start 09/16/16 at 12:30 Losartan Potassium (Cozaar) 100 mg DAILY PO Last administered on 09/17/16 10: 05; Start 09/16/16 at 12:30 Potassium Chloride 20 meq 20 meq [id number] PO Last administered on 09/17/16 10:06; Start 09/16/16 at 12:30 Amino Acids/ Glycerin/ Electrolytes (Procalamine) 1,000 ml @ 75 mls/hr [id number] IV Last administered on 09/17/16 03:56; Start 09/16/16 at 12:00 Acetaminophen/ Codeine Phosphate (Tylenol #3) 1 tab PRN Q6HRS PRN PO PAIN Last administered on 09/17/16 03:55; Start 09/17/16 at 02:15 Active Scripts Active Reported Guaifenesin 600 Mg Tablet.er 600 Mg PO BID Bactrim Ds Tablet (Sulfamethoxazole/Trimethoprim) 1 Each Tablet 1 Each PO BID 5 Days Albuterol Sulfate Neb Soln (Albuterol Sulfate) 2.5 Mg/3 Ml Vial.neb 2.5 Mg NEB Q4HRS PRN Acetaminophen 325 Mg Tablet 650 Mg PO PRN Q6HRS PRN Tramadol Hcl 50 Mg Tablet 50 Mg PO Q6H PRN Vitamin E (Vitamin E Acid Succinate) 100 Unit Tablet 100 Unit PO Vitamin D-3 (Cholecalciferol (Vitamin D3)) 2,000 Unit Tablet 2,000 Unit PO DAILY Iron (Ferrous Sulfate) 325 Mg Tablet 325 Mg PO DAILY Aspir 81 (Aspirin) 81 Mg Tablet.dr 81 Mg PO DAILY Pramipexole Dihydrochloride (Pramipexole Di-Hcl) 0.25 Mg Tablet 0.25 Mg PO Fish Oil 1,000 Mg Capsule ([place]-3 Fatty Acids/Fish Oil) 1 Each Capsule 1 Each PO BID Potassium Chloride 20 Meq Tablet.er 20 Meq PO DAILY Plaquenil (Hydroxychloroquine Sulfate) 200 Mg Tablet 200 Mg PO DAILY Pilocarpine Hcl 5 Mg Tablet 5 Mg PO TID Lexapro (Escitalopram Oxalate) 20 Mg Tablet 1 Tab PO DAILY Calcium 500 + D Tablet (Calcium Carbonate/Vitamin D3) 1 Each Tablet 1 Each PO DAILY Levothyroxine Sodium 100 Mcg Tablet 1 Tab PO DAILY Xanax (Alprazolam) 0.25 Mg Tablet 1 Tab PO BID Atenolol 50 Mg Tablet 37.5 Mg PO DAILY TAKE 1 AND 1/2 TABLETS DAILY Losartan Potassium 100 Mg Tablet 100 Mg PO DAILY Norvasc (Amlodipine Besylate) 5 Mg Tablet 10 Mg PO DAILY Vitals/I & O Vital Sign - Last 24 Hours 09/16/16 09/16/16 09/16/16 09/16/16 13:21 13:23 13:24 15:00 Temp 97.8 97.8 Pulse 65 65 65 66 Resp 20 B/P 155/60 155/60 155/60 148/46 Pulse Ox 91 O2 Delivery Room Air 09/16/16 09/16/16 09/16/16 09/17/16 19:00 20:00 23:00 03:00 Temp 98.3 98.1 98.1 98.3 98.1 98.1 Pulse 60 82 85 Resp 20 20 18 B/P 121/55 125/52 130/63 Pulse Ox 97 96 90 O2 Delivery Room Air Room Air Room Air Room Air 09/17/16 09/17/16 09/17/16 09/17/16 07:00 10:04 10:05 10:07 Temp 98.1 98.1 Pulse 57 57 57 57 Resp 24 B/P 120/53 120/53 120/53 120/53 Pulse Ox 96 O2 Delivery Room Air Intake and Output 09/16/16 09/16/16 09/17/16 15:00 23:00 07:00 Intake Total 200 ml 760 ml 450 ml Balance 200 ml 760 ml 450 ml VARUN HASSAN III DO Sep 17, 2016 11:24
[2016-09-17 15:00] VITALS: BP 115/53
[2016-09-17] MEDS: ENOXAPARIN 30 MG/0.3 ML DISP.SYRIN. SQ SCH (17:30)
[2016-09-17 19:41] VITALS: BP 117/40
[2016-09-17] MEDS: TRAMADOL 50 MG TABLET. PO PRN (21:09)
[2016-09-17 23:22] VITALS: BP 132/50
[2016-09-18 03:41] VITALS: BP 125/49
[2016-09-18] MEDS: LEVOTHYROXINE 100 MCG TABLET PO SCH (05:53)
[2016-09-18 06:02] LABS: BASO % 0 % (0-3); EOS % 2 % (0-3); HEMATOCRIT 29.2 % (36.0-47.0); HEMOGLOBIN 9.7 g/dL (12.0-15.5); LYMPH # 1.1 x10^3/uL (1.0-4.8); LYMPH % 14 % (24-48); MEAN CORPUSCULAR HEMOGLOBIN 30 pg (25-35); MEAN CORPUSCULAR HGB CONC 33 g/dL (31-37); MEAN CORPUSCULAR VOLUME 89 fL (79-100); MONO % 12 % (0-9); NEUT % 72 % (31-73); PLATELET COUNT 143 x10^3/uL (140-400); RED BLOOD COUNT 3.27 x10^6/uL (3.50-5.40); RED CELL DISTRIBUTION WIDTH 13.9 % (11.5-14.5); WHITE BLOOD COUNT 8.1 x10^3/uL (4.0-11.0)
[2016-09-18 06:07] LABS: CALCIUM 8.9 mg/dL (8.5-10.1); CREATININE 1.4 mg/dL (0.6-1.0); GFR 36.2; POTASSIUM 5.6 mmol/L (3.5-5.1)
[2016-09-18 07:30] VITALS: BP 138/59
[2016-09-18] MEDS: POTASSIUM CHLORIDE 20 MEQ TABLET.ER. PO SCH (08:00)
[2016-09-18] MEDS: ASPIRIN ENTERIC COATED 81 MG TABLET.DR. PO SCH (09:00)
[2016-09-18] MEDS: OMEGA-3 FATTY ACIDS/FISH OIL 1,000 MG CAPSULE. PO SCH ×2 (09:00→21:20)
[2016-09-18] MEDS: ATENOLOL 25 MG TABLET PO SCH (09:00)
[2016-09-18] MEDS: ESCITALOPRAM 10 MG TABLET. PO SCH (09:00)
[2016-09-18] MEDS: FERROUS SULFATE 325 MG TABLET PO SCH (09:00)
[2016-09-18] MEDS: CALCIUM CARB/VIT D3 500/200 TABLET PO SCH (09:00)
[2016-09-18] MEDS: CHOLECALCIFEROL (VITAMIN D3) 1,000 UNIT TABLET PO SCH (09:00)
[2016-09-18] MEDS: PILOCARPINE 5 MG TABLET. PO SCH ×3 (09:00→21:20)
[2016-09-18] MEDS: GUAIFENESIN ER 600 MG TABLET.ER PO SCH ×2 (09:00→21:20)
[2016-09-18] MEDS: SMZ/TMP 800/160MG TABLET. PO SCH (10:09)
[2016-09-18] MEDS: PRAMIPEXOLE 0.25 MG TABLET. PO SCH (10:09)
[2016-09-18] MEDS: HYDROXYCHLOROQUINE 200 MG TABLET PO SCH (10:09)
[2016-09-18] MEDS: AMLODIPINE BESYLATE 10 MG TABLET PO SCH (10:10)
[2016-09-18] MEDS: LOSARTAN POTASSIUM 50 MG TABLET. PO SCH (10:11)
--- NOTE | 2016-09-18 10:24 | PDOC ---
PROGRESS NOTES Chief Complaint Chief Complaint Acute metabolic encephalopathy on dementia, w. delirium today 1. Metabolic Encephalopathy, RN reports worse today, consult Neuro 2. 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 Leukocytosis, nactrim started on admit, source unknow 4. AMS, Dc the scheduled xanax 5. Acute on chronic kidney disease, vasomotor, now hyperkalemia, DC K+ supps, consult renal 6. Prior history of dementia, w. delirium today, neuro consult 7. Parkinson's disease, cont home meds 8. Hypothyroidism 9. Depression 10. Mod malnutrition, on PPn, consult nutrition History of Present Illness History of Present Illness Pt doing well today. Still pleasantly confused with same baseline dementia. Daughter at bedside today states she seems better today but still not eating much food by mouth. Discussed that we started pt on Procalamine yesterday. Daughter also stated that her mother starts to "sun down" more in the evenings. No other complaints at this time. JOSHUA RN- VSS Vitals Vitals Vital Signs Date Time Temp Pulse Resp B/P Pulse Ox O2 Delivery O2 Flow Rate FiO2 09/18/16 10:11 57 138/59 09/18/16 07:30 97.5 16 94 Room Air 97.5 09/17/16 23:22 2.0 Physical Exam Physical Exam Adult diaper in place; Left knee has bruise present, not oriented General: Alert, No acute distress Heart: Regular rate, No murmurs, Other (no rubs; Heart sounds distant) Lungs: Clear, Other (no wheezes) Abdomen: Normal bowel sounds, No tenderness, No hepatosplenomegaly, No masses Extremities: No cyanosis, No edema, Normal pulses Skin: No rashes, No breakdown Labs LABS Laboratory Tests Test 09/18/16 05:35 White Blood Count 8.1x10^3/uL (4.0-11.0) Red Blood Count 3.27x10^6/uL (3.50-5.40) Hemoglobin 9.7g/dL (12.0-15.5) Hematocrit 29.2% (36.0-47.0) Mean Corpuscular Volume 89fL (79-100) Mean Corpuscular Hemoglobin 30pg (25-35) Mean Corpuscular Hemoglobin Concent 33g/dL (31-37) Red Cell Distribution Width 13.9% (11.5-14.5) Platelet Count 143x10^3/uL (140-400) Neutrophils (%) (Auto) 72% (31-73) Lymphocytes (%) (Auto) 14% (24-48) Monocytes (%) (Auto) 12% (0-9) Eosinophils (%) (Auto) 2% (0-3) Basophils (%) (Auto) 0% (0-3) Neutrophils # (Auto) 5.8x10^3uL (1.8-7.7) Lymphocytes # (Auto) 1.1x10^3/uL (1.0-4.8) Monocytes # (Auto) 1.0x10^3/uL (0.0-1.1) Eosinophils # (Auto) 0.2x10^3/uL (0.0-0.7) Basophils # (Auto) 0.0x10^3/uL (0.0-0.2) Sodium Level 137mmol/L (136-145) Potassium Level 5.6mmol/L (3.5-5.1) Chloride Level 106mmol/L (98-107) Carbon Dioxide Level 20mmol/L (21-32) Anion Gap 11 (6-14) Blood Urea Nitrogen 34mg/dL (7-20) Creatinine 1.4mg/dL (0.6-1.0) Estimated GFR (Cockcroft-Gault) 36.2 Glucose Level 84mg/dL (70-99) Calcium Level 8.9mg/dL (8.5-10.1) Assessment and Plan Assessmemt and Plan Problems Medical Problems: (1) Acute metabolic encephalopathy Status: Acute (2) Acute renal failure Status: Acute (3) Dehydration Status: Acute Problems: Comment Review of Relevant I have reviewed the following items sheridan (where applicable) has been applied. Labs Laboratory Tests Test 09/17/16 03:35 09/18/16 05:35 White Blood Count 8.0x10^3/uL (4.0-11.0) 8.1x10^3/uL (4.0-11.0) Red Blood Count 3.22x10^6/uL (3.50-5.40) 3.27x10^6/uL (3.50-5.40) Hemoglobin 9.5g/dL (12.0-15.5) 9.7g/dL (12.0-15.5) Hematocrit 28.1% (36.0-47.0) 29.2% (36.0-47.0) Mean Corpuscular Volume 87fL (79-100) 89fL (79-100) Mean Corpuscular Hemoglobin 30pg (25-35) 30pg (25-35) Mean Corpuscular Hemoglobin Concent 34g/dL (31-37) 33g/dL (31-37) Red Cell Distribution Width 13.8% (11.5-14.5) 13.9% (11.5-14.5) Platelet Count 138x10^3/uL (140-400) 143x10^3/uL (140-400) Neutrophils (%) (Auto) 72% (31-73) 72% (31-73) Lymphocytes (%) (Auto) 16% (24-48) 14% (24-48) Monocytes (%) (Auto) 11% (0-9) 12% (0-9) Eosinophils (%) (Auto) 1% (0-3) 2% (0-3) Basophils (%) (Auto) 0% (0-3) 0% (0-3) Neutrophils # (Auto) 5.7x10^3uL (1.8-7.7) 5.8x10^3uL (1.8-7.7) Lymphocytes # (Auto) 1.3x10^3/uL (1.0-4.8) 1.1x10^3/uL (1.0-4.8) Monocytes # (Auto) 0.9x10^3/uL (0.0-1.1) 1.0x10^3/uL (0.0-1.1) Eosinophils # (Auto) 0.1x10^3/uL (0.0-0.7) 0.2x10^3/uL (0.0-0.7) Basophils # (Auto) 0.0x10^3/uL (0.0-0.2) 0.0x10^3/uL (0.0-0.2) Sodium Level 136mmol/L (136-145) 137mmol/L (136-145) Potassium Level 4.6mmol/L (3.5-5.1) 5.6mmol/L (3.5-5.1) Chloride Level 104mmol/L (98-107) 106mmol/L (98-107) Carbon Dioxide Level 20mmol/L (21-32) 20mmol/L (21-32) Anion Gap 12 (6-14) 11 (6-14) Blood Urea Nitrogen 28mg/dL (7-20) 34mg/dL (7-20) Creatinine 1.2mg/dL (0.6-1.0) 1.4mg/dL (0.6-1.0) Estimated GFR (Cockcroft-Gault) 43.2 36.2 Glucose Level 86mg/dL (70-99) 84mg/dL (70-99) Calcium Level 8.7mg/dL (8.5-10.1) 8.9mg/dL (8.5-10.1) Laboratory Tests Test 09/18/16 05:35 White Blood Count 8.1x10^3/uL (4.0-11.0) Red Blood Count 3.27x10^6/uL (3.50-5.40) Hemoglobin 9.7g/dL (12.0-15.5) Hematocrit 29.2% (36.0-47.0) Mean Corpuscular Volume 89fL (79-100) Mean Corpuscular Hemoglobin 30pg (25-35) Mean Corpuscular Hemoglobin Concent 33g/dL (31-37) Red Cell Distribution Width 13.9% (11.5-14.5) Platelet Count 143x10^3/uL (140-400) Neutrophils (%) (Auto) 72% (31-73) Lymphocytes (%) (Auto) 14% (24-48) Monocytes (%) (Auto) 12% (0-9) Eosinophils (%) (Auto) 2% (0-3) Basophils (%) (Auto) 0% (0-3) Neutrophils # (Auto) 5.8x10^3uL (1.8-7.7) Lymphocytes # (Auto) 1.1x10^3/uL (1.0-4.8) Monocytes # (Auto) 1.0x10^3/uL (0.0-1.1) Eosinophils # (Auto) 0.2x10^3/uL (0.0-0.7) Basophils # (Auto) 0.0x10^3/uL (0.0-0.2) Sodium Level 137mmol/L (136-145) Potassium Level 5.6mmol/L (3.5-5.1) Chloride Level 106mmol/L (98-107) Carbon Dioxide Level 20mmol/L (21-32) Anion Gap 11 (6-14) Blood Urea Nitrogen 34mg/dL (7-20) Creatinine 1.4mg/dL (0.6-1.0) Estimated GFR (Cockcroft-Gault) 36.2 Glucose Level 84mg/dL (70-99) Calcium Level 8.9mg/dL (8.5-10.1) Microbiology 09/16/16 Blood Culture - Preliminary, Resulted NO GROWTH AFTER 2 DAYS Medications Current Medications Sodium Chloride (Iv Sodium Chloride 0.9% 1000ml Bag) 1,000 ml @ 125 mls/hr 1X ONCE IV Last administered on 09/15/16 11:45; Start 09/15/16 at 10:15; Stop 07/20 at 18:14; Status DC Ondansetron HCl 4 mg 4 mg PRN Q8HRS PRN IV NAUSEA/VOMITING; Start 09/15/16 at 15:30; Stop 09/15/16 at 17:12; Status DC Sodium Chloride (Iv Sodium Chloride 0.9% 1000ml Bag) 1,000 ml @ 125 mls/hr Q8H IV Last administered on 09/15/16 15:23; Start 09/15/16 at 15:23; Stop at 15:15; Status DC Acetaminophen (Tylenol) 650 mg PRN Q4HRS PRN PO FEVER; Start 09/15/16 at 15:30 ; Stop 09/15/16 at 17:12; Status DC Acetaminophen (Tylenol) 325 mg PRN Q6HRS PRN PO MILD PAIN / TEMP; Start at 17:15; Stop 09/16/16 at 15:15; Status DC Acetaminophen/ Hydrocodone Bitart (Lortab 5/325) 1 tab PRN Q6HRS PRN PO MODERATE TO SEVERE PAIN; Start 09/15/16 at 17:15 Hydralazine HCl (Apresoline) 10 mg PRN Q4HRS PRN IVP ELEVATED BP, SEE COMMENTS ; Start 09/15/16 at 17:15 Ondansetron HCl (Zofran) 4 mg PRN Q8HRS PRN IV NAUSEA/VOMITING; Start 09/15/16 at 17:15 Albuterol Sulfate 2.5 mg 2.5 mg PRN Q4HRS PRN NEB SHORTNESS OF BREATH; Start at 17:15; Stop 09/16/16 at 15:15; Status DC Sodium Chloride 1,000 ml @ 75 mls/hr 1X ONCE IV ; Start 09/15/16 at 17:15; Stop 09/15/16 at 17:15; Status DC Sodium Chloride (Iv Sodium Chloride 0.9% 1000ml Bag) 1,000 ml @ 75 mls/hr DAILY IV Last administered on 09/15/16 21:35; Start 09/15/16 at 17:15; Stop at 11:31; Status DC Enoxaparin Sodium (Lovenox 30mg Syringe) 30 mg Q24H SQ Last administered on 17:30; Start 09/15/16 at 18:00 Alprazolam (Xanax) 0.25 mg BID PO Last administered on 09/17/16 21:00; Start 09/16/16 at 01:15 Tramadol HCl (Ultram) 50 mg PRN Q6HRS PRN PO PAIN Last administered on 21:09; Start 09/16/16 at 01:15 Acetaminophen (Tylenol) 650 mg PRN Q6HRS PRN PO MILD PAIN / TEMP; Start at 11:30 Albuterol Sulfate (Ventolin Neb Soln) 2.5 mg PRN Q4HRS PRN NEB SHORTNESS OF BREATH; Start 09/16/16 at 11:30 Amlodipine Besylate (Norvasc) 10 mg DAILY PO Last administered on 09/18/16 10: 10; Start 09/16/16 at 12:30 Aspirin (Ecotrin) 81 mg DAILY PO Last administered on 09/17/16 10:08; Start at 12:30 Atenolol (Tenormin) 37.5 mg DAILY PO Last administered on 09/17/16 10:07; Start 09/16/16 at 12:30 Ferrous Sulfate (Feosol) 325 mg DAILY PO Last administered on 09/17/16 10:07; Start 09/16/16 at 12:30 Guaifenesin (Mucinex) 600 mg BID PO Last administered on 09/17/16 21:00; Start 09/16/16 at 12:30 Hydroxychloroquine Sulfate (Plaquenil) 200 mg DAILY PO Last administered on 10:09; Start 09/16/16 at 12:30 Levothyroxine Sodium (Synthroid) 100 mcg DAILY07 PO Last administered on 05:53; Start 09/16/16 at 12:30 Fish Oil (Fish Oil) 1,000 mg BID PO Last administered on 09/17/16 21:00; Start 09/16/16 at 12:30 Pilocarpine HCl (Salagen) 5 mg TID PO Last administered on 09/17/16 21:00; Start 09/16/16 at 14:00 Pramipexole Dihydrochloride (miraPEX) 0.25 mg DAILY PO Last administered on 10:09; Start 09/16/16 at 12:30 Trimethoprim/ Sulfamethoxazole (Bactrim Ds) 1 tab BID PO Last administered on 10:09; Start 09/16/16 at 12:30 Calcium/Vitamin D (Oscal D 500mg/ 200uts) 1 tab DAILY PO Last administered on 10:05; Start 09/16/16 at 12:30 Vitamin D (Vitamin D3) 2,000 unit DAILY PO Last administered on 09/17/16 10:07 ; Start 09/16/16 at 12:30 Escitalopram Oxalate (Lexapro) 20 mg DAILY PO Last administered on 09/17/16 10 :04; Start 09/16/16 at 12:30 Losartan Potassium (Cozaar) 100 mg DAILY PO Last administered on 09/18/16 10: 11; Start 09/16/16 at 12:30 Potassium Chloride 20 meq 20 meq [id number] PO Last administered on 09/17/16 10:06; Start 09/16/16 at 12:30; Stop 09/18/16 at 10:19; Status DC Amino Acids/ Glycerin/ Electrolytes (Procalamine) 1,000 ml @ 80 mls/hr [id number] IV Last administered on 09/17/16 21:01; Start 09/16/16 at 12:00 Acetaminophen/ Codeine Phosphate (Tylenol #3) 1 tab PRN Q6HRS PRN PO PAIN Last administered on 09/17/16 03:55; Start 09/17/16 at 02:15 Active Scripts Active Reported Guaifenesin 600 Mg Tablet.er 600 Mg PO BID Bactrim Ds Tablet (Sulfamethoxazole/Trimethoprim) 1 Each Tablet 1 Each PO BID 5 Days Albuterol Sulfate Neb Soln (Albuterol Sulfate) 2.5 Mg/3 Ml Vial.neb 2.5 Mg NEB Q4HRS PRN Acetaminophen 325 Mg Tablet 650 Mg PO PRN Q6HRS PRN Tramadol Hcl 50 Mg Tablet 50 Mg PO Q6H PRN Vitamin E (Vitamin E Acid Succinate) 100 Unit Tablet 100 Unit PO Vitamin D-3 (Cholecalciferol (Vitamin D3)) 2,000 Unit Tablet 2,000 Unit PO DAILY Iron (Ferrous Sulfate) 325 Mg Tablet 325 Mg PO DAILY Aspir 81 (Aspirin) 81 Mg Tablet.dr 81 Mg PO DAILY Pramipexole Dihydrochloride (Pramipexole Di-Hcl) 0.25 Mg Tablet 0.25 Mg PO Fish Oil 1,000 Mg Capsule ([place]-3 Fatty Acids/Fish Oil) 1 Each Capsule 1 Each PO BID Potassium Chloride 20 Meq Tablet.er 20 Meq PO DAILY Plaquenil (Hydroxychloroquine Sulfate) 200 Mg Tablet 200 Mg PO DAILY Pilocarpine Hcl 5 Mg Tablet 5 Mg PO TID Lexapro (Escitalopram Oxalate) 20 Mg Tablet 1 Tab PO DAILY Calcium 500 + D Tablet (Calcium Carbonate/Vitamin D3) 1 Each Tablet 1 Each PO DAILY Levothyroxine Sodium 100 Mcg Tablet 1 Tab PO DAILY Xanax (Alprazolam) 0.25 Mg Tablet 1 Tab PO BID Atenolol 50 Mg Tablet 37.5 Mg PO DAILY TAKE 1 AND 1/2 TABLETS DAILY Losartan Potassium 100 Mg Tablet 100 Mg PO DAILY Norvasc (Amlodipine Besylate) 5 Mg Tablet 10 Mg PO DAILY Vitals/I & O Vital Sign - Last 24 Hours 09/17/16 09/17/16 09/17/16 09/17/16 11:00 15:00 19:41 20:00 Temp 97.9 98.6 98.3 97.9 98.6 98.3 Pulse 56 56 116 Resp 18 18 B/P 140/53 115/53 117/40 Pulse Ox 94 96 95 O2 Delivery Room Air Room Air Nasal Cannula Room Air O2 Flow Rate 2.0 09/17/16 09/18/16 09/18/16 09/18/16 23:22 03:41 07:30 10:10 Temp 97.9 97.5 97.5 97.9 97.5 97.5 Pulse 56 61 57 57 Resp 18 18 16 B/P 132/50 125/49 138/59 138/59 Pulse Ox 97 92 94 O2 Delivery Nasal Cannula Room Air Room Air O2 Flow Rate 2.0 09/18/16 10:11 Pulse 57 B/P 138/59 Intake and Output 09/17/16 09/17/16 09/18/16 14:59 22:59 06:59 Intake Total 520 ml 320 ml 200 ml Balance 520 ml 320 ml 200 ml OSVALDO BAXTER MD Sep 18, 2016 10:24
[2016-09-18 11:00] VITALS: BP 170/53
--- NOTE | 2016-09-18 15:18 | PDOC2 ---
CONSULT Date of Consult Date of Consult DATE: 09/18/16 TIME: 15:13 Reason for Consult Reason for Consult: DANIELLE Referring Physician Referring Physician: TYRONE Identification/Chief Complaint Chief Complaint CONFUSION Source Source: Chart review History of Present Illness Reason for Visit: THIS IS AN 80 YR OLD ADMITTED WITH CONFUSION AND POOR PO INTAKE. ADMIT LABS SHOWED A CR OF 2.2. SHE HAS STAGE 3 TO 4 CKD WITH BASELINE CR OF ABOUT 1.4. SHE IS ON LOSARTAN AND BACTRIM WAS STARTED EMPIRICALLY FOR HER LEUCOCYTOSIS ON INITIAL PRESENTATION. SHE HAS CKD DUE TO HTN Past Medical History Cardiovascular: CHF, HTN, Other Pulmonary: Pneumonia CENTRAL NERVOUS SYSTEM: Dementia GI: GERD Heme/Onc: Cancer Psych: Depression Musculoskeletal: Osteoarthritis Rheumatologic: Other Infectious disease: No pertinent hx Renal/: Chronic renal insuff, Urinary Incontinence Endocrine: Hypothyroidism Past Surgical History Past Surgical History: Cataract Removal, Colectomy, Other Family History Family History: Coronary Artery Disease Social History ALCOHOL: none Drugs: None Lives: Alone Current Problem List Problem List Problems Medical Problems: (1) Acute metabolic encephalopathy Status: Acute (2) Acute renal failure Status: Acute (3) Dehydration Status: Acute Current Medications Current Medications Current Medications Sodium Chloride (Iv Sodium Chloride 0.9% 1000ml Bag) 1,000 ml @ 125 mls/hr 1X ONCE IV Last administered on 09/15/16 11:45; Start 09/15/16 at 10:15; Stop 07/20 at 18:14; Status DC Ondansetron HCl 4 mg 4 mg PRN Q8HRS PRN IV NAUSEA/VOMITING; Start 09/15/16 at 15:30; Stop 09/15/16 at 17:12; Status DC Sodium Chloride (Iv Sodium Chloride 0.9% 1000ml Bag) 1,000 ml @ 125 mls/hr Q8H IV Last administered on 09/15/16 15:23; Start 09/15/16 at 15:23; Stop at 15:15; Status DC Acetaminophen (Tylenol) 650 mg PRN Q4HRS PRN PO FEVER; Start 09/15/16 at 15:30 ; Stop 09/15/16 at 17:12; Status DC Acetaminophen (Tylenol) 325 mg PRN Q6HRS PRN PO MILD PAIN / TEMP; Start at 17:15; Stop 09/16/16 at 15:15; Status DC Acetaminophen/ Hydrocodone Bitart (Lortab 5/325) 1 tab PRN Q6HRS PRN PO MODERATE TO SEVERE PAIN; Start 09/15/16 at 17:15 Hydralazine HCl (Apresoline) 10 mg PRN Q4HRS PRN IVP ELEVATED BP, SEE COMMENTS ; Start 09/15/16 at 17:15 Ondansetron HCl (Zofran) 4 mg PRN Q8HRS PRN IV NAUSEA/VOMITING; Start 09/15/16 at 17:15 Albuterol Sulfate 2.5 mg 2.5 mg PRN Q4HRS PRN NEB SHORTNESS OF BREATH; Start at 17:15; Stop 09/16/16 at 15:15; Status DC Sodium Chloride 1,000 ml @ 75 mls/hr 1X ONCE IV ; Start 09/15/16 at 17:15; Stop 09/15/16 at 17:15; Status DC Sodium Chloride (Iv Sodium Chloride 0.9% 1000ml Bag) 1,000 ml @ 75 mls/hr DAILY IV Last administered on 09/15/16 21:35; Start 09/15/16 at 17:15; Stop at 11:31; Status DC Enoxaparin Sodium (Lovenox 30mg Syringe) 30 mg Q24H SQ Last administered on 17:30; Start 09/15/16 at 18:00 Alprazolam (Xanax) 0.25 mg BID PO Last administered on 09/17/16 21:00; Start 09/16/16 at 01:15; Stop 09/18/16 at 10:22; Status DC Tramadol HCl (Ultram) 50 mg PRN Q6HRS PRN PO PAIN Last administered on 21:09; Start 09/16/16 at 01:15 Acetaminophen (Tylenol) 650 mg PRN Q6HRS PRN PO MILD PAIN / TEMP; Start at 11:30 Albuterol Sulfate (Ventolin Neb Soln) 2.5 mg PRN Q4HRS PRN NEB SHORTNESS OF BREATH; Start 09/16/16 at 11:30 Amlodipine Besylate (Norvasc) 10 mg DAILY PO Last administered on 09/18/16 10: 10; Start 09/16/16 at 12:30 Aspirin (Ecotrin) 81 mg DAILY PO Last administered on 09/17/16 10:08; Start at 12:30 Atenolol (Tenormin) 37.5 mg DAILY PO Last administered on 09/17/16 10:07; Start 09/16/16 at 12:30 Ferrous Sulfate (Feosol) 325 mg DAILY PO Last administered on 09/17/16 10:07; Start 09/16/16 at 12:30 Guaifenesin (Mucinex) 600 mg BID PO Last administered on 09/17/16 21:00; Start 09/16/16 at 12:30 Hydroxychloroquine Sulfate (Plaquenil) 200 mg DAILY PO Last administered on 10:09; Start 09/16/16 at 12:30 Levothyroxine Sodium (Synthroid) 100 mcg DAILY07 PO Last administered on 05:53; Start 09/16/16 at 12:30 Fish Oil (Fish Oil) 1,000 mg BID PO Last administered on 09/17/16 21:00; Start 09/16/16 at 12:30 Pilocarpine HCl (Salagen) 5 mg TID PO Last administered on 09/17/16 21:00; Start 09/16/16 at 14:00 Pramipexole Dihydrochloride (miraPEX) 0.25 mg DAILY PO Last administered on 10:09; Start 09/16/16 at 12:30 Trimethoprim/ Sulfamethoxazole (Bactrim Ds) 1 tab BID PO Last administered on 10:09; Start 09/16/16 at 12:30; Stop 09/18/16 at 10:58; Status DC Calcium/Vitamin D (Oscal D 500mg/ 200uts) 1 tab DAILY PO Last administered on 10:05; Start 09/16/16 at 12:30 Vitamin D (Vitamin D3) 2,000 unit DAILY PO Last administered on 09/17/16 10:07 ; Start 09/16/16 at 12:30 Escitalopram Oxalate (Lexapro) 20 mg DAILY PO Last administered on 09/17/16 10 :04; Start 09/16/16 at 12:30 Losartan Potassium (Cozaar) 100 mg DAILY PO Last administered on 09/18/16 10: 11; Start 09/16/16 at 12:30 Potassium Chloride 20 meq 20 meq [id number] PO Last administered on 09/17/16 10:06; Start 09/16/16 at 12:30; Stop 09/18/16 at 10:19; Status DC Amino Acids/ Glycerin/ Electrolytes (Procalamine) 1,000 ml @ 80 mls/hr [id number] IV Last administered on 09/17/16 21:01; Start 09/16/16 at 12:00 Acetaminophen/ Codeine Phosphate (Tylenol #3) 1 tab PRN Q6HRS PRN PO PAIN Last administered on 09/17/16 03:55; Start 09/17/16 at 02:15 Active Scripts Active Reported Guaifenesin 600 Mg Tablet.er 600 Mg PO BID Bactrim Ds Tablet (Sulfamethoxazole/Trimethoprim) 1 Each Tablet 1 Each PO BID 5 Days Albuterol Sulfate Neb Soln (Albuterol Sulfate) 2.5 Mg/3 Ml Vial.neb 2.5 Mg NEB Q4HRS PRN Acetaminophen 325 Mg Tablet 650 Mg PO PRN Q6HRS PRN Tramadol Hcl 50 Mg Tablet 50 Mg PO Q6H PRN Vitamin E (Vitamin E Acid Succinate) 100 Unit Tablet 100 Unit PO Vitamin D-3 (Cholecalciferol (Vitamin D3)) 2,000 Unit Tablet 2,000 Unit PO DAILY Iron (Ferrous Sulfate) 325 Mg Tablet 325 Mg PO DAILY Aspir 81 (Aspirin) 81 Mg Tablet.dr 81 Mg PO DAILY Pramipexole Dihydrochloride (Pramipexole Di-Hcl) 0.25 Mg Tablet 0.25 Mg PO Fish Oil 1,000 Mg Capsule ([place]-3 Fatty Acids/Fish Oil) 1 Each Capsule 1 Each PO BID Potassium Chloride 20 Meq Tablet.er 20 Meq PO DAILY Plaquenil (Hydroxychloroquine Sulfate) 200 Mg Tablet 200 Mg PO DAILY Pilocarpine Hcl 5 Mg Tablet 5 Mg PO TID Lexapro (Escitalopram Oxalate) 20 Mg Tablet 1 Tab PO DAILY Calcium 500 + D Tablet (Calcium Carbonate/Vitamin D3) 1 Each Tablet 1 Each PO DAILY Levothyroxine Sodium 100 Mcg Tablet 1 Tab PO DAILY Xanax (Alprazolam) 0.25 Mg Tablet 1 Tab PO BID Atenolol 50 Mg Tablet 37.5 Mg PO DAILY TAKE 1 AND 1/2 TABLETS DAILY Losartan Potassium 100 Mg Tablet 100 Mg PO DAILY Norvasc (Amlodipine Besylate) 5 Mg Tablet 10 Mg PO DAILY Allergies Allergies: Coded Allergies: naproxen (Verified Allergy, Intermediate, 11/02/14) lisinopril (Verified Allergy, Mild, COUGH, 01/10/15) I S O L A T I O N *CONTACT* (Verified Allergy, Unknown, 09/17/16) mrsa donepezil (Verified Adverse Reaction, Mild, 08/16/16) 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" per pt's family ROS Review of System CONFUSED Physical Exam General: Cooperative HEENT: Atraumatic, PERRLA Lungs: Clear to auscultation, Normal air movement Heart: Regular rate, Normal S1, Normal S2 Abdomen: Normal bowel sounds, Soft Extremities: No clubbing Skin: No breakdown, No significant lesion Neuro: Other (CONFUSED) Psych/Mental Status: Other (CONFUSED) MUSCULOSKELETAL: No deformity Vitals VITALS Vital Signs Date Time Temp Pulse Resp B/P Pulse Ox O2 Delivery O2 Flow Rate FiO2 09/18/16 11:00 98.1 57 18 170/53 97 Room Air 98.1 09/18/16 08:00 2.0 Labs Labs Laboratory Tests Test 09/17/16 03:35 09/18/16 05:35 White Blood Count 8.0x10^3/uL (4.0-11.0) 8.1x10^3/uL (4.0-11.0) Red Blood Count 3.22x10^6/uL (3.50-5.40) 3.27x10^6/uL (3.50-5.40) Hemoglobin 9.5g/dL (12.0-15.5) 9.7g/dL (12.0-15.5) Hematocrit 28.1% (36.0-47.0) 29.2% (36.0-47.0) Mean Corpuscular Volume 87fL (79-100) 89fL (79-100) Mean Corpuscular Hemoglobin 30pg (25-35) 30pg (25-35) Mean Corpuscular Hemoglobin Concent 34g/dL (31-37) 33g/dL (31-37) Red Cell Distribution Width 13.8% (11.5-14.5) 13.9% (11.5-14.5) Platelet Count 138x10^3/uL (140-400) 143x10^3/uL (140-400) Neutrophils (%) (Auto) 72% (31-73) 72% (31-73) Lymphocytes (%) (Auto) 16% (24-48) 14% (24-48) Monocytes (%) (Auto) 11% (0-9) 12% (0-9) Eosinophils (%) (Auto) 1% (0-3) 2% (0-3) Basophils (%) (Auto) 0% (0-3) 0% (0-3) Neutrophils # (Auto) 5.7x10^3uL (1.8-7.7) 5.8x10^3uL (1.8-7.7) Lymphocytes # (Auto) 1.3x10^3/uL (1.0-4.8) 1.1x10^3/uL (1.0-4.8) Monocytes # (Auto) 0.9x10^3/uL (0.0-1.1) 1.0x10^3/uL (0.0-1.1) Eosinophils # (Auto) 0.1x10^3/uL (0.0-0.7) 0.2x10^3/uL (0.0-0.7) Basophils # (Auto) 0.0x10^3/uL (0.0-0.2) 0.0x10^3/uL (0.0-0.2) Sodium Level 136mmol/L (136-145) 137mmol/L (136-145) Potassium Level 4.6mmol/L (3.5-5.1) 5.6mmol/L (3.5-5.1) Chloride Level 104mmol/L (98-107) 106mmol/L (98-107) Carbon Dioxide Level 20mmol/L (21-32) 20mmol/L (21-32) Anion Gap 12 (6-14) 11 (6-14) Blood Urea Nitrogen 28mg/dL (7-20) 34mg/dL (7-20) Creatinine 1.2mg/dL (0.6-1.0) 1.4mg/dL (0.6-1.0) Estimated GFR (Cockcroft-Gault) 43.2 36.2 Glucose Level 86mg/dL (70-99) 84mg/dL (70-99) Calcium Level 8.7mg/dL (8.5-10.1) 8.9mg/dL (8.5-10.1) Laboratory Tests Test 09/18/16 05:35 White Blood Count 8.1x10^3/uL (4.0-11.0) Red Blood Count 3.27x10^6/uL (3.50-5.40) Hemoglobin 9.7g/dL (12.0-15.5) Hematocrit 29.2% (36.0-47.0) Mean Corpuscular Volume 89fL (79-100) Mean Corpuscular Hemoglobin 30pg (25-35) Mean Corpuscular Hemoglobin Concent 33g/dL (31-37) Red Cell Distribution Width 13.9% (11.5-14.5) Platelet Count 143x10^3/uL (140-400) Neutrophils (%) (Auto) 72% (31-73) Lymphocytes (%) (Auto) 14% (24-48) Monocytes (%) (Auto) 12% (0-9) Eosinophils (%) (Auto) 2% (0-3) Basophils (%) (Auto) 0% (0-3) Neutrophils # (Auto) 5.8x10^3uL (1.8-7.7) Lymphocytes # (Auto) 1.1x10^3/uL (1.0-4.8) Monocytes # (Auto) 1.0x10^3/uL (0.0-1.1) Eosinophils # (Auto) 0.2x10^3/uL (0.0-0.7) Basophils # (Auto) 0.0x10^3/uL (0.0-0.2) Sodium Level 137mmol/L (136-145) Potassium Level 5.6mmol/L (3.5-5.1) Chloride Level 106mmol/L (98-107) Carbon Dioxide Level 20mmol/L (21-32) Anion Gap 11 (6-14) Blood Urea Nitrogen 34mg/dL (7-20) Creatinine 1.4mg/dL (0.6-1.0) Estimated GFR (Cockcroft-Gault) 36.2 Glucose Level 84mg/dL (70-99) Calcium Level 8.9mg/dL (8.5-10.1) Assessment/Plan Assessment/Plan IMP HYPOVOLEMIA MET ENCEPHALOPATHY DANIELLE WITH CR OF 2.2 HYPERKALEMIA CKD STAGE 3 - 4 WITH BASELINE CR OF 1.4 LEUCOCYTOSIS ANEMIA OF CKD PLAN HOLD BACTRIM HOLD LOSARTAN HOLD KCL ARANESP CONT PPN TILL PO INTAKE IS ADEQUATE UPDATED FAMILY RADHA SIDHU MD Sep 18, 2016 15:18
[2016-09-18 15:20] VITALS: BP 111/66
--- NOTE | 2016-09-18 15:42 | PDOC2 ---
NEUROLOGY CONSULT Date of Admission Date of Admission DATE: 09/18/16 TIME: 15:32 Reason for Consult Reason for Consult: Metabolic encephalopathy Referring Physician Referring Physician: Dr. Ortega Source Source: Caregiver, Chart review History of Present Illness History of Present Illness The patient is an 80-year-old right-handed female admitted with confusion. I last saw her in March. She has history of metabolic encephalopathy, transient ischemic attack, and follows with Dr. Cosby for dementia. She was here in August for sepsis. She had been still living in assisted living until then, but since then has been in a [place] [facility]. She was brought over 3 days ago with confusion.She has been found to have leukocytosis and renal insufficiency. No one has witnessed any seizure activity. A diagnosis of Parkinson's appears in the chart but she has never been shown to have this.The patient was a little bit better yesterday but has been more confused today. Past Medical History Cardiovascular: CHF, HTN Pulmonary: Pneumonia CENTRAL NERVOUS SYSTEM: Dementia Heme/Onc: Cancer (colon) Psych: Anxiety, Depression Rheumatologic: Other (Sjogren's syndrome) Renal/: Chronic renal failure, Urinary Incontinence Endocrine: Hypothyroidism Past Surgical History Past Surgical History: Cataract Removal, Colectomy, Other (LINQ monitor, hemorrhoidectomy) Family History Family History: CAD Social History Social History Now living in [place] [facility], no alcohol or tobacco Current Medications Current Medications Current Medications Sodium Chloride (Iv Sodium Chloride 0.9% 1000ml Bag) 1,000 ml @ 125 mls/hr 1X ONCE IV Last administered on 09/15/16 11:45; Start 09/15/16 at 10:15; Stop 07/20 at 18:14; Status DC Ondansetron HCl 4 mg 4 mg PRN Q8HRS PRN IV NAUSEA/VOMITING; Start 09/15/16 at 15:30; Stop 09/15/16 at 17:12; Status DC Sodium Chloride (Iv Sodium Chloride 0.9% 1000ml Bag) 1,000 ml @ 125 mls/hr Q8H IV Last administered on 09/15/16 15:23; Start 09/15/16 at 15:23; Stop at 15:15; Status DC Acetaminophen (Tylenol) 650 mg PRN Q4HRS PRN PO FEVER; Start 09/15/16 at 15:30 ; Stop 09/15/16 at 17:12; Status DC Acetaminophen (Tylenol) 325 mg PRN Q6HRS PRN PO MILD PAIN / TEMP; Start at 17:15; Stop 09/16/16 at 15:15; Status DC Acetaminophen/ Hydrocodone Bitart (Lortab 5/325) 1 tab PRN Q6HRS PRN PO MODERATE TO SEVERE PAIN; Start 09/15/16 at 17:15 Hydralazine HCl (Apresoline) 10 mg PRN Q4HRS PRN IVP ELEVATED BP, SEE COMMENTS ; Start 09/15/16 at 17:15 Ondansetron HCl (Zofran) 4 mg PRN Q8HRS PRN IV NAUSEA/VOMITING; Start 09/15/16 at 17:15 Albuterol Sulfate 2.5 mg 2.5 mg PRN Q4HRS PRN NEB SHORTNESS OF BREATH; Start at 17:15; Stop 09/16/16 at 15:15; Status DC Sodium Chloride 1,000 ml @ 75 mls/hr 1X ONCE IV ; Start 09/15/16 at 17:15; Stop 09/15/16 at 17:15; Status DC Sodium Chloride (Iv Sodium Chloride 0.9% 1000ml Bag) 1,000 ml @ 75 mls/hr DAILY IV Last administered on 09/15/16 21:35; Start 09/15/16 at 17:15; Stop at 11:31; Status DC Enoxaparin Sodium (Lovenox 30mg Syringe) 30 mg Q24H SQ Last administered on 17:30; Start 09/15/16 at 18:00 Alprazolam (Xanax) 0.25 mg BID PO Last administered on 09/17/16 21:00; Start 09/16/16 at 01:15; Stop 09/18/16 at 10:22; Status DC Tramadol HCl (Ultram) 50 mg PRN Q6HRS PRN PO PAIN Last administered on 21:09; Start 09/16/16 at 01:15 Acetaminophen (Tylenol) 650 mg PRN Q6HRS PRN PO MILD PAIN / TEMP; Start at 11:30 Albuterol Sulfate (Ventolin Neb Soln) 2.5 mg PRN Q4HRS PRN NEB SHORTNESS OF BREATH; Start 09/16/16 at 11:30 Amlodipine Besylate (Norvasc) 10 mg DAILY PO Last administered on 09/18/16 10: 10; Start 09/16/16 at 12:30 Aspirin (Ecotrin) 81 mg DAILY PO Last administered on 09/17/16 10:08; Start at 12:30 Atenolol (Tenormin) 37.5 mg DAILY PO Last administered on 09/17/16 10:07; Start 09/16/16 at 12:30 Ferrous Sulfate (Feosol) 325 mg DAILY PO Last administered on 09/17/16 10:07; Start 09/16/16 at 12:30 Guaifenesin (Mucinex) 600 mg BID PO Last administered on 09/17/16 21:00; Start 09/16/16 at 12:30 Hydroxychloroquine Sulfate (Plaquenil) 200 mg DAILY PO Last administered on 10:09; Start 09/16/16 at 12:30 Levothyroxine Sodium (Synthroid) 100 mcg DAILY07 PO Last administered on 05:53; Start 09/16/16 at 12:30 Fish Oil (Fish Oil) 1,000 mg BID PO Last administered on 09/17/16 21:00; Start 09/16/16 at 12:30 Pilocarpine HCl (Salagen) 5 mg TID PO Last administered on 09/17/16 21:00; Start 09/16/16 at 14:00 Pramipexole Dihydrochloride (miraPEX) 0.25 mg DAILY PO Last administered on 10:09; Start 09/16/16 at 12:30 Trimethoprim/ Sulfamethoxazole (Bactrim Ds) 1 tab BID PO Last administered on 10:09; Start 09/16/16 at 12:30; Stop 09/18/16 at 10:58; Status DC Calcium/Vitamin D (Oscal D 500mg/ 200uts) 1 tab DAILY PO Last administered on 10:05; Start 09/16/16 at 12:30 Vitamin D (Vitamin D3) 2,000 unit DAILY PO Last administered on 09/17/16 10:07 ; Start 09/16/16 at 12:30 Escitalopram Oxalate (Lexapro) 20 mg DAILY PO Last administered on 09/17/16 10 :04; Start 09/16/16 at 12:30 Losartan Potassium (Cozaar) 100 mg DAILY PO Last administered on 09/18/16 10: 11; Start 09/16/16 at 12:30 Potassium Chloride 20 meq 20 meq DAILYWBKFT PO Last administered on 09/17/16 10:06; Start 09/16/16 at 12:30; Stop 09/18/16 at 10:19; Status DC Amino Acids/ Glycerin/ Electrolytes (Procalamine) 1,000 ml @ 80 mls/hr [id number] IV Last administered on 09/17/16 21:01; Start 09/16/16 at 12:00 Acetaminophen/ Codeine Phosphate (Tylenol #3) 1 tab PRN Q6HRS PRN PO PAIN Last administered on 09/17/16 03:55; Start 09/17/16 at 02:15 Active Scripts Active Reported Guaifenesin 600 Mg Tablet.er 600 Mg PO BID Bactrim Ds Tablet (Sulfamethoxazole/Trimethoprim) 1 Each Tablet 1 Each PO BID 5 Days Albuterol Sulfate Neb Soln (Albuterol Sulfate) 2.5 Mg/3 Ml Vial.neb 2.5 Mg NEB Q4HRS PRN Acetaminophen 325 Mg Tablet 650 Mg PO PRN Q6HRS PRN Tramadol Hcl 50 Mg Tablet 50 Mg PO Q6H PRN Vitamin E (Vitamin E Acid Succinate) 100 Unit Tablet 100 Unit PO Vitamin D-3 (Cholecalciferol (Vitamin D3)) 2,000 Unit Tablet 2,000 Unit PO DAILY Iron (Ferrous Sulfate) 325 Mg Tablet 325 Mg PO DAILY Aspir 81 (Aspirin) 81 Mg Tablet.dr 81 Mg PO DAILY Pramipexole Dihydrochloride (Pramipexole Di-Hcl) 0.25 Mg Tablet 0.25 Mg PO Fish Oil 1,000 Mg Capsule ([place]-3 Fatty Acids/Fish Oil) 1 Each Capsule 1 Each PO BID Potassium Chloride 20 Meq Tablet.er 20 Meq PO DAILY Plaquenil (Hydroxychloroquine Sulfate) 200 Mg Tablet 200 Mg PO DAILY Pilocarpine Hcl 5 Mg Tablet 5 Mg PO TID Lexapro (Escitalopram Oxalate) 20 Mg Tablet 1 Tab PO DAILY Calcium 500 + D Tablet (Calcium Carbonate/Vitamin D3) 1 Each Tablet 1 Each PO DAILY Levothyroxine Sodium 100 Mcg Tablet 1 Tab PO DAILY Xanax (Alprazolam) 0.25 Mg Tablet 1 Tab PO BID Atenolol 50 Mg Tablet 37.5 Mg PO DAILY TAKE 1 AND 1/2 TABLETS DAILY Losartan Potassium 100 Mg Tablet 100 Mg PO DAILY Norvasc (Amlodipine Besylate) 5 Mg Tablet 10 Mg PO DAILY Allergies Allergies: Coded Allergies: naproxen (Verified Allergy, Intermediate, 11/02/14) lisinopril (Verified Allergy, Mild, COUGH, 01/10/15) I S O L A T I O N *CONTACT* (Verified Allergy, Unknown, 09/17/16) mrsa donepezil (Verified Adverse Reaction, Mild, 08/16/16) 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" per pt's family ROS Review of System Negative for fevers, chills, weight loss, shortness of breath, chest pain, indigestion, hematochezia, melena, dysuria. Full 14-point review systems is negative. Physical Exam Physical Examination PHYSICAL EXAMINATION: Vital signs: see above. General appearance is normal and in no acute distress. HEENT: Normocephalic and nontraumatic. Eyes, nose, ears, and throat are unremarkable. Neck is supple. No lymphadenopathy. No bruits are heard over the carotid artery. No crepitus. NEUROLOGICAL EXAMINATION: Mental Status Examination: Alert. Oriented only to person. Does not follows commends. Pupils are equal round and reactive to light and accommodation. Extraocular movements are intact. Visual field exam shows no defect on the direct confrontation. No motor or sensory deficits on the facial exam. Uvula in the midline and the soft palate elevated symmetrically. No deviation of the tongue to any direction. Gross hearing is normal. Shoulder shrug normal. Muscle tone is normal. Muscle strength is 3-4/5. Deep tendon reflexes are 1+ all around. Plantar reflex is with flexion response bilaterally. There are bilateral grasp reflexes. [id number] test performance is accurate. Alternative movements are accurate. Gait not tested. Sensory exam shows no deficits. No cerebellar signs are elicited. Vitals VITALS Vital Signs Date Time Temp Pulse Resp B/P Pulse Ox O2 Delivery O2 Flow Rate FiO2 09/18/16 11:00 98.1 57 18 170/53 97 Room Air 98.1 09/18/16 08:00 2.0 Labs Labs Laboratory Tests Test 09/17/16 03:35 09/18/16 05:35 White Blood Count 8.0x10^3/uL (4.0-11.0) 8.1x10^3/uL (4.0-11.0) Red Blood Count 3.22x10^6/uL (3.50-5.40) 3.27x10^6/uL (3.50-5.40) Hemoglobin 9.5g/dL (12.0-15.5) 9.7g/dL (12.0-15.5) Hematocrit 28.1% (36.0-47.0) 29.2% (36.0-47.0) Mean Corpuscular Volume 87fL (79-100) 89fL (79-100) Mean Corpuscular Hemoglobin 30pg (25-35) 30pg (25-35) Mean Corpuscular Hemoglobin Concent 34g/dL (31-37) 33g/dL (31-37) Red Cell Distribution Width 13.8% (11.5-14.5) 13.9% (11.5-14.5) Platelet Count 138x10^3/uL (140-400) 143x10^3/uL (140-400) Neutrophils (%) (Auto) 72% (31-73) 72% (31-73) Lymphocytes (%) (Auto) 16% (24-48) 14% (24-48) Monocytes (%) (Auto) 11% (0-9) 12% (0-9) Eosinophils (%) (Auto) 1% (0-3) 2% (0-3) Basophils (%) (Auto) 0% (0-3) 0% (0-3) Neutrophils # (Auto) 5.7x10^3uL (1.8-7.7) 5.8x10^3uL (1.8-7.7) Lymphocytes # (Auto) 1.3x10^3/uL (1.0-4.8) 1.1x10^3/uL (1.0-4.8) Monocytes # (Auto) 0.9x10^3/uL (0.0-1.1) 1.0x10^3/uL (0.0-1.1) Eosinophils # (Auto) 0.1x10^3/uL (0.0-0.7) 0.2x10^3/uL (0.0-0.7) Basophils # (Auto) 0.0x10^3/uL (0.0-0.2) 0.0x10^3/uL (0.0-0.2) Sodium Level 136mmol/L (136-145) 137mmol/L (136-145) Potassium Level 4.6mmol/L (3.5-5.1) 5.6mmol/L (3.5-5.1) Chloride Level 104mmol/L (98-107) 106mmol/L (98-107) Carbon Dioxide Level 20mmol/L (21-32) 20mmol/L (21-32) Anion Gap 12 (6-14) 11 (6-14) Blood Urea Nitrogen 28mg/dL (7-20) 34mg/dL (7-20) Creatinine 1.2mg/dL (0.6-1.0) 1.4mg/dL (0.6-1.0) Estimated GFR (Cockcroft-Gault) 43.2 36.2 Glucose Level 86mg/dL (70-99) 84mg/dL (70-99) Calcium Level 8.7mg/dL (8.5-10.1) 8.9mg/dL (8.5-10.1) Laboratory Tests Test 09/18/16 05:35 White Blood Count 8.1x10^3/uL (4.0-11.0) Red Blood Count 3.27x10^6/uL (3.50-5.40) Hemoglobin 9.7g/dL (12.0-15.5) Hematocrit 29.2% (36.0-47.0) Mean Corpuscular Volume 89fL (79-100) Mean Corpuscular Hemoglobin 30pg (25-35) Mean Corpuscular Hemoglobin Concent 33g/dL (31-37) Red Cell Distribution Width 13.9% (11.5-14.5) Platelet Count 143x10^3/uL (140-400) Neutrophils (%) (Auto) 72% (31-73) Lymphocytes (%) (Auto) 14% (24-48) Monocytes (%) (Auto) 12% (0-9) Eosinophils (%) (Auto) 2% (0-3) Basophils (%) (Auto) 0% (0-3) Neutrophils # (Auto) 5.8x10^3uL (1.8-7.7) Lymphocytes # (Auto) 1.1x10^3/uL (1.0-4.8) Monocytes # (Auto) 1.0x10^3/uL (0.0-1.1) Eosinophils # (Auto) 0.2x10^3/uL (0.0-0.7) Basophils # (Auto) 0.0x10^3/uL (0.0-0.2) Sodium Level 137mmol/L (136-145) Potassium Level 5.6mmol/L (3.5-5.1) Chloride Level 106mmol/L (98-107) Carbon Dioxide Level 20mmol/L (21-32) Anion Gap 11 (6-14) Blood Urea Nitrogen 34mg/dL (7-20) Creatinine 1.4mg/dL (0.6-1.0) Estimated GFR (Cockcroft-Gault) 36.2 Glucose Level 84mg/dL (70-99) Calcium Level 8.9mg/dL (8.5-10.1) Images Images CT head: 1. Intracranial findings are unchanged compared with previous exam. If there is suspicion for evolving or acute ischemia, follow-up CT or MRI may be beneficial. There is again third and lateral ventriculomegaly somewhat disproportionate to sulcal spaces, may be due to more central atrophy unless clinical suspicion for normal pressure hydrocephalus. Ill-defined low-density of the supratentorial white matter is nonspecific, most commonly due to chronic microvascular ischemic disease in a patient this age. 2. There is now tiny left sphenoid sinus air-fluid level. Assessment/Plan Assessment/Plan Impression: Expected progression of severe dementia plus metabolic encephalopathy Recommendations: I have no other tests or treatments to offer I discussed my findings with the patient's daughter. Thank you for letting me help with the patient's care. IZABELLA ROJAS MD Sep 18, 2016 15:42
[2016-09-18] MEDS: ENOXAPARIN 30 MG/0.3 ML DISP.SYRIN. SQ SCH (17:13)
[2016-09-18] MEDS: AA 3%/ELECTROLYTE-TPN SOLN/GLY 1,000 ML IV SCH ×2 (17:13→17:14)
[2016-09-18 19:00] VITALS: BP 123/53
[2016-09-18] MEDS: TRAMADOL 50 MG TABLET. PO PRN (19:05)
[2016-09-18] MEDS: IPRATRPIUM/ALBUTEROL 0.5/2.5MG 3 ML NEBU. NEB SCH (19:46)
[2016-09-18 23:00] VITALS: BP 113/68
[2016-09-19] MEDS: ACETAMINOPHEN/CODEINE 300/30MG TABLET PO PRN ×2 (01:01→22:12)
[2016-09-19 03:37] VITALS: BP 139/67
[2016-09-19 06:12] LABS: CALCIUM 9.8 mg/dL (8.5-10.1); CREATININE 1.7 mg/dL (0.6-1.0); GFR 28.9
[2016-09-19 06:15] LABS: BASO % 0 % (0-3); EOS % 2 % (0-3); HEMATOCRIT 29.9 % (36.0-47.0); LYMPH # 1.1 x10^3/uL (1.0-4.8); LYMPH % 12 % (24-48); MEAN CORPUSCULAR HEMOGLOBIN 29 pg (25-35); MEAN CORPUSCULAR HGB CONC 34 g/dL (31-37); MEAN CORPUSCULAR VOLUME 88 fL (79-100); MONO % 15 % (0-9); NEUT % 71 % (31-73); PLATELET COUNT 170 x10^3/uL (140-400); RED BLOOD COUNT 3.41 x10^6/uL (3.50-5.40); RED CELL DISTRIBUTION WIDTH 13.9 % (11.5-14.5); WHITE BLOOD COUNT 8.7 x10^3/uL (4.0-11.0)
[2016-09-19] MEDS: LEVOTHYROXINE 100 MCG TABLET PO SCH (06:18)
[2016-09-19] MEDS: AA 3%/ELECTROLYTE-TPN SOLN/GLY 1,000 ML IV SCH ×2 (06:19→17:23)
[2016-09-19 06:30] LABS: POTASSIUM 5.9 mmol/L (3.5-5.1)
[2016-09-19 07:00] VITALS: BP 134/54
--- NOTE | 2016-09-19 07:15 | RAD ---
Portable chest, 09/18/2016: History: Dyspnea Comparison is made to a study from 09/15/2016. The heart size and pulmonary vascularity are normal. There is calcific plaquing of the aorta. There are a few scattered parenchymal scars. There is mild retrocardiac atelectasis/infiltrate in the left base. The right lung is clear. There is no evidence of pleural fluid. IMPRESSION: Mild left basilar atelectasis and/or pneumonitis.
[2016-09-19] MEDS: IPRATRPIUM/ALBUTEROL 0.5/2.5MG 3 ML NEBU. NEB SCH ×4 (08:22→21:58)
[2016-09-19] MEDS: PRAMIPEXOLE 0.25 MG TABLET. PO SCH ×2 (09:00→22:12)
[2016-09-19] MEDS: ATENOLOL 25 MG TABLET PO SCH (09:00)
[2016-09-19] MEDS: CALCIUM CARB/VIT D3 500/200 TABLET PO SCH (09:00)
[2016-09-19] MEDS: CHOLECALCIFEROL (VITAMIN D3) 1,000 UNIT TABLET PO SCH (09:00)
[2016-09-19] MEDS: HYDROXYCHLOROQUINE 200 MG TABLET PO SCH (09:00)
[2016-09-19] MEDS: LOSARTAN POTASSIUM 50 MG TABLET. PO SCH (09:00)
[2016-09-19] MEDS: OMEGA-3 FATTY ACIDS/FISH OIL 1,000 MG CAPSULE. PO SCH ×3 (09:00→22:12)
[2016-09-19] MEDS: ESCITALOPRAM 10 MG TABLET. PO SCH (09:00)
[2016-09-19] MEDS: GUAIFENESIN ER 600 MG TABLET.ER PO SCH ×2 (09:00→22:12)
[2016-09-19] MEDS: ASPIRIN ENTERIC COATED 81 MG TABLET.DR. PO SCH (09:00)
[2016-09-19] MEDS: PILOCARPINE 5 MG TABLET. PO SCH ×3 (09:00→22:12)
[2016-09-19] MEDS: AMLODIPINE BESYLATE 10 MG TABLET PO SCH (09:00)
[2016-09-19] MEDS: FERROUS SULFATE 325 MG TABLET PO SCH (09:00)
[2016-09-19 11:00] VITALS: BP 132/50
--- NOTE | 2016-09-19 12:18 | PDOC ---
PROGRESS NOTES Assessment Problems Medical Problems: (1) Acute metabolic encephalopathy Status: Acute (2) Acute renal failure Status: Acute (3) Dehydration Status: Acute Expected progression of severe dementia plus metabolic encephalopathy Note patient does not have Parkinson's, is on pramipexole for restless legs. 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 Plan I have no other tests or treatments to offer I discussed my findings with the patient's daughter. Subjective No complaints Objective Vital Signs Date Time Temp Pulse Resp B/P Pulse Ox O2 Delivery O2 Flow Rate FiO2 09/19/16 12:05 Room Air 09/19/16 11:00 98.1 67 18 132/50 96 98.1 09/18/16 19:05 2.0 Intake and Output 09/19/16 07:00 Intake Total 250 ml Balance 250 ml Intake Oral 250 ml # Voids 5 PHYSICAL EXAM Alert. Oriented to person. PERRL. EOMI. CN: no focal findings. Muscle tone: normal. Muscle strength: 3-4/5 DTR: 1+ Plantar reflex: Flexor, bilateral grasp reflexes Gait: not examined in bed. Sensory exam: no abnormal findings. No cerebellar signs elicited. Review of Relevant I have reviewed the following items sheridan (where applicable) has been applied. Labs Laboratory Tests Test 09/18/16 05:35 09/19/16 03:57 White Blood Count 8.1x10^3/uL (4.0-11.0) 8.7x10^3/uL (4.0-11.0) Red Blood Count 3.27x10^6/uL (3.50-5.40) 3.41x10^6/uL (3.50-5.40) Hemoglobin 9.7g/dL (12.0-15.5) 10.0g/dL (12.0-15.5) Hematocrit 29.2% (36.0-47.0) 29.9% (36.0-47.0) Mean Corpuscular Volume 89fL (79-100) 88fL (79-100) Mean Corpuscular Hemoglobin 30pg (25-35) 29pg (25-35) Mean Corpuscular Hemoglobin Concent 33g/dL (31-37) 34g/dL (31-37) Red Cell Distribution Width 13.9% (11.5-14.5) 13.9% (11.5-14.5) Platelet Count 143x10^3/uL (140-400) 170x10^3/uL (140-400) Neutrophils (%) (Auto) 72% (31-73) 71% (31-73) Lymphocytes (%) (Auto) 14% (24-48) 12% (24-48) Monocytes (%) (Auto) 12% (0-9) 15% (0-9) Eosinophils (%) (Auto) 2% (0-3) 2% (0-3) Basophils (%) (Auto) 0% (0-3) 0% (0-3) Neutrophils # (Auto) 5.8x10^3uL (1.8-7.7) 6.2x10^3uL (1.8-7.7) Lymphocytes # (Auto) 1.1x10^3/uL (1.0-4.8) 1.1x10^3/uL (1.0-4.8) Monocytes # (Auto) 1.0x10^3/uL (0.0-1.1) 1.3x10^3/uL (0.0-1.1) Eosinophils # (Auto) 0.2x10^3/uL (0.0-0.7) 0.2x10^3/uL (0.0-0.7) Basophils # (Auto) 0.0x10^3/uL (0.0-0.2) 0.0x10^3/uL (0.0-0.2) Sodium Level 137mmol/L (136-145) 135mmol/L (136-145) Potassium Level 5.6mmol/L (3.5-5.1) 5.9mmol/L (3.5-5.1) Chloride Level 106mmol/L (98-107) 104mmol/L (98-107) Carbon Dioxide Level 20mmol/L (21-32) 19mmol/L (21-32) Anion Gap 11 (6-14) 12 (6-14) Blood Urea Nitrogen 34mg/dL (7-20) 40mg/dL (7-20) Creatinine 1.4mg/dL (0.6-1.0) 1.7mg/dL (0.6-1.0) Estimated GFR (Cockcroft-Gault) 36.2 28.9 Glucose Level 84mg/dL (70-99) 76mg/dL (70-99) Calcium Level 8.9mg/dL (8.5-10.1) 9.8mg/dL (8.5-10.1) Laboratory Tests Test 09/19/16 03:57 White Blood Count 8.7x10^3/uL (4.0-11.0) Red Blood Count 3.41x10^6/uL (3.50-5.40) Hemoglobin 10.0g/dL (12.0-15.5) Hematocrit 29.9% (36.0-47.0) Mean Corpuscular Volume 88fL (79-100) Mean Corpuscular Hemoglobin 29pg (25-35) Mean Corpuscular Hemoglobin Concent 34g/dL (31-37) Red Cell Distribution Width 13.9% (11.5-14.5) Platelet Count 170x10^3/uL (140-400) Neutrophils (%) (Auto) 71% (31-73) Lymphocytes (%) (Auto) 12% (24-48) Monocytes (%) (Auto) 15% (0-9) Eosinophils (%) (Auto) 2% (0-3) Basophils (%) (Auto) 0% (0-3) Neutrophils # (Auto) 6.2x10^3uL (1.8-7.7) Lymphocytes # (Auto) 1.1x10^3/uL (1.0-4.8) Monocytes # (Auto) 1.3x10^3/uL (0.0-1.1) Eosinophils # (Auto) 0.2x10^3/uL (0.0-0.7) Basophils # (Auto) 0.0x10^3/uL (0.0-0.2) Sodium Level 135mmol/L (136-145) Potassium Level 5.9mmol/L (3.5-5.1) Chloride Level 104mmol/L (98-107) Carbon Dioxide Level 19mmol/L (21-32) Anion Gap 12 (6-14) Blood Urea Nitrogen 40mg/dL (7-20) Creatinine 1.7mg/dL (0.6-1.0) Estimated GFR (Cockcroft-Gault) 28.9 Glucose Level 76mg/dL (70-99) Calcium Level 9.8mg/dL (8.5-10.1) Microbiology 09/16/16 Blood Culture - Preliminary, Resulted NO GROWTH AFTER 3 DAYS Medications Current Medications Sodium Chloride (Iv Sodium Chloride 0.9% 1000ml Bag) 1,000 ml @ 125 mls/hr 1X ONCE IV Last administered on 09/15/16 11:45; Start 09/15/16 at 10:15; Stop 07/20 at 18:14; Status DC Ondansetron HCl 4 mg 4 mg PRN Q8HRS PRN IV NAUSEA/VOMITING; Start 09/15/16 at 15:30; Stop 09/15/16 at 17:12; Status DC Sodium Chloride (Iv Sodium Chloride 0.9% 1000ml Bag) 1,000 ml @ 125 mls/hr Q8H IV Last administered on 09/15/16 15:23; Start 09/15/16 at 15:23; Stop at 15:15; Status DC Acetaminophen (Tylenol) 650 mg PRN Q4HRS PRN PO FEVER; Start 09/15/16 at 15:30 ; Stop 09/15/16 at 17:12; Status DC Acetaminophen (Tylenol) 325 mg PRN Q6HRS PRN PO MILD PAIN / TEMP; Start at 17:15; Stop 09/16/16 at 15:15; Status DC Acetaminophen/ Hydrocodone Bitart (Lortab 5/325) 1 tab PRN Q6HRS PRN PO MODERATE TO SEVERE PAIN; Start 09/15/16 at 17:15 Hydralazine HCl (Apresoline) 10 mg PRN Q4HRS PRN IVP ELEVATED BP, SEE COMMENTS ; Start 09/15/16 at 17:15 Ondansetron HCl (Zofran) 4 mg PRN Q8HRS PRN IV NAUSEA/VOMITING; Start 09/15/16 at 17:15 Albuterol Sulfate 2.5 mg 2.5 mg PRN Q4HRS PRN NEB SHORTNESS OF BREATH; Start at 17:15; Stop 09/16/16 at 15:15; Status DC Sodium Chloride 1,000 ml @ 75 mls/hr 1X ONCE IV ; Start 09/15/16 at 17:15; Stop 09/15/16 at 17:15; Status DC Sodium Chloride (Iv Sodium Chloride 0.9% 1000ml Bag) 1,000 ml @ 75 mls/hr DAILY IV Last administered on 09/15/16 21:35; Start 09/15/16 at 17:15; Stop at 11:31; Status DC Enoxaparin Sodium (Lovenox 30mg Syringe) 30 mg Q24H SQ Last administered on 17:13; Start 09/15/16 at 18:00 Alprazolam (Xanax) 0.25 mg BID PO Last administered on 09/17/16 21:00; Start 09/16/16 at 01:15; Stop 09/18/16 at 10:22; Status DC Tramadol HCl (Ultram) 50 mg PRN Q6HRS PRN PO PAIN Last administered on 19:05; Start 09/16/16 at 01:15 Acetaminophen (Tylenol) 650 mg PRN Q6HRS PRN PO MILD PAIN / TEMP; Start at 11:30 Albuterol Sulfate (Ventolin Neb Soln) 2.5 mg PRN Q4HRS PRN NEB SHORTNESS OF BREATH; Start 09/16/16 at 11:30 Amlodipine Besylate (Norvasc) 10 mg DAILY PO Last administered on 09/18/16 10: 10; Start 09/16/16 at 12:30 Aspirin (Ecotrin) 81 mg DAILY PO Last administered on 09/17/16 10:08; Start at 12:30 Atenolol (Tenormin) 37.5 mg DAILY PO Last administered on 09/17/16 10:07; Start 09/16/16 at 12:30 Ferrous Sulfate (Feosol) 325 mg DAILY PO Last administered on 09/17/16 10:07; Start 09/16/16 at 12:30 Guaifenesin (Mucinex) 600 mg BID PO Last administered on 09/18/16 21:20; Start 09/16/16 at 12:30 Hydroxychloroquine Sulfate (Plaquenil) 200 mg DAILY PO Last administered on 10:09; Start 09/16/16 at 12:30 Levothyroxine Sodium (Synthroid) 100 mcg DAILY07 PO Last administered on 06:18; Start 09/16/16 at 12:30 Fish Oil (Fish Oil) 1,000 mg BID PO Last administered on 09/18/16 21:20; Start 09/16/16 at 12:30 Pilocarpine HCl (Salagen) 5 mg TID PO Last administered on 09/18/16 21:20; Start 09/16/16 at 14:00 Pramipexole Dihydrochloride (miraPEX) 0.25 mg DAILY PO Last administered on 10:09; Start 09/16/16 at 12:30 Trimethoprim/ Sulfamethoxazole (Bactrim Ds) 1 tab BID PO Last administered on 10:09; Start 09/16/16 at 12:30; Stop 09/18/16 at 10:58; Status DC Calcium/Vitamin D (Oscal D 500mg/ 200uts) 1 tab DAILY PO Last administered on 10:05; Start 09/16/16 at 12:30 Vitamin D (Vitamin D3) 2,000 unit DAILY PO Last administered on 09/17/16 10:07 ; Start 09/16/16 at 12:30 Escitalopram Oxalate (Lexapro) 20 mg DAILY PO Last administered on 09/17/16 10 :04; Start 09/16/16 at 12:30 Losartan Potassium (Cozaar) 100 mg DAILY PO Last administered on 09/18/16 10: 11; Start 09/16/16 at 12:30 Potassium Chloride 20 meq 20 meq DAILYWBKFT PO Last administered on 09/17/16 10:06; Start 09/16/16 at 12:30; Stop 09/18/16 at 10:19; Status DC Amino Acids/ Glycerin/ Electrolytes (Procalamine) 1,000 ml @ 80 mls/hr [id number] IV Last administered on 09/19/16 06:19; Start 09/16/16 at 12:00 Acetaminophen/ Codeine Phosphate (Tylenol #3) 1 tab PRN Q6HRS PRN PO PAIN Last administered on 09/19/16 01:01; Start 09/17/16 at 02:15 Albuterol/ Ipratropium (Duoneb) 3 ml RTQID NEB Last administered on 09/19/16 12:05; Start 09/18/16 at 20:00 Active Scripts Active Reported Guaifenesin 600 Mg Tablet.er 600 Mg PO BID Bactrim Ds Tablet (Sulfamethoxazole/Trimethoprim) 1 Each Tablet 1 Each PO BID 5 Days Albuterol Sulfate Neb Soln (Albuterol Sulfate) 2.5 Mg/3 Ml Vial.neb 2.5 Mg NEB Q4HRS PRN Acetaminophen 325 Mg Tablet 650 Mg PO PRN Q6HRS PRN Tramadol Hcl 50 Mg Tablet 50 Mg PO Q6H PRN Vitamin E (Vitamin E Acid Succinate) 100 Unit Tablet 100 Unit PO Vitamin D-3 (Cholecalciferol (Vitamin D3)) 2,000 Unit Tablet 2,000 Unit PO DAILY Iron (Ferrous Sulfate) 325 Mg Tablet 325 Mg PO DAILY Aspir 81 (Aspirin) 81 Mg Tablet.dr 81 Mg PO DAILY Pramipexole Dihydrochloride (Pramipexole Di-Hcl) 0.25 Mg Tablet 0.25 Mg PO Fish Oil 1,000 Mg Capsule ([place]-3 Fatty Acids/Fish Oil) 1 Each Capsule 1 Each PO BID Potassium Chloride 20 Meq Tablet.er 20 Meq PO DAILY Plaquenil (Hydroxychloroquine Sulfate) 200 Mg Tablet 200 Mg PO DAILY [place] Hcl 5 Mg Tablet 5 Mg PO TID Lexapro (Escitalopram Oxalate) 20 Mg Tablet 1 Tab PO DAILY Calcium 500 + D Tablet (Calcium Carbonate/Vitamin D3) 1 Each Tablet 1 Each PO DAILY Levothyroxine Sodium 100 Mcg Tablet 1 Tab PO DAILY Xanax (Alprazolam) 0.25 Mg Tablet 1 Tab PO BID Atenolol 50 Mg Tablet 37.5 Mg PO DAILY TAKE 1 AND 1/2 TABLETS DAILY Losartan Potassium 100 Mg Tablet 100 Mg PO DAILY Norvasc (Amlodipine Besylate) 5 Mg Tablet 10 Mg PO DAILY Vitals/I & O Vital Sign - Last 24 Hours 09/18/16 09/18/16 09/18/16 09/18/16 15:20 19:00 19:05 19:51 Temp 99.0 98.6 99.0 98.6 Pulse 61 Resp 20 18 20 B/P 111/66 123/53 Pulse Ox 95 96 95 95 O2 Delivery Room Air Room Air Room Air Room Air O2 Flow Rate 2.0 09/18/16 09/18/16 09/18/16 09/19/16 20:00 21:20 23:00 03:37 Temp 98.6 98.8 98.6 98.8 Pulse 94 67 Resp 20 20 B/P 113/68 139/67 Pulse Ox 96 91 O2 Delivery Room Air Room Air Room Air 09/19/16 09/19/16 09/19/16 09/19/16 07:00 08:00 08:25 09:00 Temp 97.7 97.7 Pulse 66 58 Resp 18 B/P 134/54 134/54 Pulse Ox 97 O2 Delivery Room Air Room Air Room Air 09/19/16 09/19/16 11:00 12:05 Temp 98.1 98.1 Pulse 67 Resp 18 B/P 132/50 Pulse Ox 96 O2 Delivery Room Air Room Air Intake and Output 09/18/16 09/18/16 09/19/16 15:00 23:00 07:00 Intake Total 100 ml 150 ml Balance 100 ml 150 ml [email or web address] ROJAS MD Sep 19, 2016 12:18
--- NOTE | 2016-09-19 12:21 | PDOC ---
Renal-Progress Notes Subjective Notes Notes NONE History of Present Illness Hx of present illness STABLE Vitals Vitals Vital Signs Date Time Temp Pulse Resp B/P Pulse Ox O2 Delivery O2 Flow Rate FiO2 09/19/16 12:05 Room Air 09/19/16 11:00 98.1 67 18 132/50 96 98.1 09/18/16 19:05 2.0 Weight Weight [ ] I.O. Intake and Output Intake and Output 09/19/16 07:00 Intake Total 250 ml Balance 250 ml Intake Oral 250 ml # Voids 5 Labs Labs Laboratory Tests Test 09/19/16 03:57 White Blood Count 8.7x10^3/uL (4.0-11.0) Red Blood Count 3.41x10^6/uL (3.50-5.40) Hemoglobin 10.0g/dL (12.0-15.5) Hematocrit 29.9% (36.0-47.0) Mean Corpuscular Volume 88fL (79-100) Mean Corpuscular Hemoglobin 29pg (25-35) Mean Corpuscular Hemoglobin Concent 34g/dL (31-37) Red Cell Distribution Width 13.9% (11.5-14.5) Platelet Count 170x10^3/uL (140-400) Neutrophils (%) (Auto) 71% (31-73) Lymphocytes (%) (Auto) 12% (24-48) Monocytes (%) (Auto) 15% (0-9) Eosinophils (%) (Auto) 2% (0-3) Basophils (%) (Auto) 0% (0-3) Neutrophils # (Auto) 6.2x10^3uL (1.8-7.7) Lymphocytes # (Auto) 1.1x10^3/uL (1.0-4.8) Monocytes # (Auto) 1.3x10^3/uL (0.0-1.1) Eosinophils # (Auto) 0.2x10^3/uL (0.0-0.7) Basophils # (Auto) 0.0x10^3/uL (0.0-0.2) Sodium Level 135mmol/L (136-145) Potassium Level 5.9mmol/L (3.5-5.1) Chloride Level 104mmol/L (98-107) Carbon Dioxide Level 19mmol/L (21-32) Anion Gap 12 (6-14) Blood Urea Nitrogen 40mg/dL (7-20) Creatinine 1.7mg/dL (0.6-1.0) Estimated GFR (Cockcroft-Gault) 28.9 Glucose Level 76mg/dL (70-99) Calcium Level 9.8mg/dL (8.5-10.1) Micro Micro Microbiology 09/16/16 Blood Culture - Preliminary, Resulted NO GROWTH AFTER 3 DAYS Review of Systems Constitutional: yes: no symptom reported Physical Exam General Appearance: no apparent distress Skin: warm Respiratory: decreased breath sounds Heart: S1S2, RRR Abdomen: soft, bowel sounds present Extremities: pulses present Neurology: alert Musculoskeletal: Osteoarthritis Assessment Assessment IMP DANIELLE-WORSE WITH CR OF 1.7 CKD STAGE 3 TO 4 HYPERKALEMIA HYPOVOLEMIA DEMENTIA PLAN PPN STOP HER LOSARTAN WILL FOLLOW LABS IN AM RADHA SIDHU MD Sep 19, 2016 12:21
--- NOTE | 2016-09-19 14:49 | PDOC ---
PROGRESS NOTES Chief Complaint Chief Complaint Acute metabolic encephalopathy on dementia, w. delirium 1. Metabolic Encephalopathy, 2. 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 Leukocytosis, 4. AMS 5. Acute on chronic kidney disease, vasomotor, now hyperkalemia, 6. Prior history of dementia, w. delirium 7. Parkinson's disease, 8. Hypothyroidism 9. Depression 10. Mod malnutrition, History of Present Illness History of Present Illness NOt confused today But very poor PO intake Dtrs at bedside Lives in [facility] jumped to 5.9 (baseline was 1.7) Known to Radha Rico Pt and dtrs might not go HD if needed, not necessarily pt might be a candidate too for that ALso, PT working with her now, might need SNU - but then again pt might not be agreeble Then there is hospice too LOts of time discussing these avenues with pleasant dtrs CXr yesterday showed atelectasis PLAN: IS REsume xanax prn (seems to be making pt more comfortable) Await PT recs Renal panel daily Stop losartan time 30 mins in room alone Vitals Vitals Vital Signs Date Time Temp Pulse Resp B/P Pulse Ox O2 Delivery O2 Flow Rate FiO2 09/19/16 12:05 Room Air 09/19/16 11:00 98.1 67 18 132/50 96 98.1 09/18/16 19:05 2.0 Physical Exam Physical Exam Adult diaper in place; Left knee has bruise present, not oriented General: Cooperative Heart: Regular rate, Normal S1, Normal S2 Lungs: Clear, Other (no wheezes) Abdomen: Normal bowel sounds, Soft Extremities: No clubbing Skin: No breakdown, No significant lesion Labs LABS Laboratory Tests Test 09/19/16 03:57 White Blood Count 8.7x10^3/uL (4.0-11.0) Red Blood Count 3.41x10^6/uL (3.50-5.40) Hemoglobin 10.0g/dL (12.0-15.5) Hematocrit 29.9% (36.0-47.0) Mean Corpuscular Volume 88fL (79-100) Mean Corpuscular Hemoglobin 29pg (25-35) Mean Corpuscular Hemoglobin Concent 34g/dL (31-37) Red Cell Distribution Width 13.9% (11.5-14.5) Platelet Count 170x10^3/uL (140-400) Neutrophils (%) (Auto) 71% (31-73) Lymphocytes (%) (Auto) 12% (24-48) Monocytes (%) (Auto) 15% (0-9) Eosinophils (%) (Auto) 2% (0-3) Basophils (%) (Auto) 0% (0-3) Neutrophils # (Auto) 6.2x10^3uL (1.8-7.7) Lymphocytes # (Auto) 1.1x10^3/uL (1.0-4.8) Monocytes # (Auto) 1.3x10^3/uL (0.0-1.1) Eosinophils # (Auto) 0.2x10^3/uL (0.0-0.7) Basophils # (Auto) 0.0x10^3/uL (0.0-0.2) Sodium Level 135mmol/L (136-145) Potassium Level 5.9mmol/L (3.5-5.1) Chloride Level 104mmol/L (98-107) Carbon Dioxide Level 19mmol/L (21-32) Anion Gap 12 (6-14) Blood Urea Nitrogen 40mg/dL (7-20) Creatinine 1.7mg/dL (0.6-1.0) Estimated GFR (Cockcroft-Gault) 28.9 Glucose Level 76mg/dL (70-99) Calcium Level 9.8mg/dL (8.5-10.1) Review of Systems Review of Systems limited dementia Assessment and Plan Assessmemt and Plan Problems Medical Problems: (1) Acute metabolic encephalopathy Status: Acute (2) Acute renal failure Status: Acute (3) Dehydration Status: Acute Problems: Comment Review of Relevant I have reviewed the following items sheridan (where applicable) has been applied. Labs Laboratory Tests Test 09/18/16 05:35 09/19/16 03:57 White Blood Count 8.1x10^3/uL (4.0-11.0) 8.7x10^3/uL (4.0-11.0) Red Blood Count 3.27x10^6/uL (3.50-5.40) 3.41x10^6/uL (3.50-5.40) Hemoglobin 9.7g/dL (12.0-15.5) 10.0g/dL (12.0-15.5) Hematocrit 29.2% (36.0-47.0) 29.9% (36.0-47.0) Mean Corpuscular Volume 89fL (79-100) 88fL (79-100) Mean Corpuscular Hemoglobin 30pg (25-35) 29pg (25-35) Mean Corpuscular Hemoglobin Concent 33g/dL (31-37) 34g/dL (31-37) Red Cell Distribution Width 13.9% (11.5-14.5) 13.9% (11.5-14.5) Platelet Count 143x10^3/uL (140-400) 170x10^3/uL (140-400) Neutrophils (%) (Auto) 72% (31-73) 71% (31-73) Lymphocytes (%) (Auto) 14% (24-48) 12% (24-48) Monocytes (%) (Auto) 12% (0-9) 15% (0-9) Eosinophils (%) (Auto) 2% (0-3) 2% (0-3) Basophils (%) (Auto) 0% (0-3) 0% (0-3) Neutrophils # (Auto) 5.8x10^3uL (1.8-7.7) 6.2x10^3uL (1.8-7.7) Lymphocytes # (Auto) 1.1x10^3/uL (1.0-4.8) 1.1x10^3/uL (1.0-4.8) Monocytes # (Auto) 1.0x10^3/uL (0.0-1.1) 1.3x10^3/uL (0.0-1.1) Eosinophils # (Auto) 0.2x10^3/uL (0.0-0.7) 0.2x10^3/uL (0.0-0.7) Basophils # (Auto) 0.0x10^3/uL (0.0-0.2) 0.0x10^3/uL (0.0-0.2) Sodium Level 137mmol/L (136-145) 135mmol/L (136-145) Potassium Level 5.6mmol/L (3.5-5.1) 5.9mmol/L (3.5-5.1) Chloride Level 106mmol/L (98-107) 104mmol/L (98-107) Carbon Dioxide Level 20mmol/L (21-32) 19mmol/L (21-32) Anion Gap 11 (6-14) 12 (6-14) Blood Urea Nitrogen 34mg/dL (7-20) 40mg/dL (7-20) Creatinine 1.4mg/dL (0.6-1.0) 1.7mg/dL (0.6-1.0) Estimated GFR (Cockcroft-Gault) 36.2 28.9 Glucose Level 84mg/dL (70-99) 76mg/dL (70-99) Calcium Level 8.9mg/dL (8.5-10.1) 9.8mg/dL (8.5-10.1) Laboratory Tests Test 09/19/16 03:57 White Blood Count 8.7x10^3/uL (4.0-11.0) Red Blood Count 3.41x10^6/uL (3.50-5.40) Hemoglobin 10.0g/dL (12.0-15.5) Hematocrit 29.9% (36.0-47.0) Mean Corpuscular Volume 88fL (79-100) Mean Corpuscular Hemoglobin 29pg (25-35) Mean Corpuscular Hemoglobin Concent 34g/dL (31-37) Red Cell Distribution Width 13.9% (11.5-14.5) Platelet Count 170x10^3/uL (140-400) Neutrophils (%) (Auto) 71% (31-73) Lymphocytes (%) (Auto) 12% (24-48) Monocytes (%) (Auto) 15% (0-9) Eosinophils (%) (Auto) 2% (0-3) Basophils (%) (Auto) 0% (0-3) Neutrophils # (Auto) 6.2x10^3uL (1.8-7.7) Lymphocytes # (Auto) 1.1x10^3/uL (1.0-4.8) Monocytes # (Auto) 1.3x10^3/uL (0.0-1.1) Eosinophils # (Auto) 0.2x10^3/uL (0.0-0.7) Basophils # (Auto) 0.0x10^3/uL (0.0-0.2) Sodium Level 135mmol/L (136-145) Potassium Level 5.9mmol/L (3.5-5.1) Chloride Level 104mmol/L (98-107) Carbon Dioxide Level 19mmol/L (21-32) Anion Gap 12 (6-14) Blood Urea Nitrogen 40mg/dL (7-20) Creatinine 1.7mg/dL (0.6-1.0) Estimated GFR (Cockcroft-Gault) 28.9 Glucose Level 76mg/dL (70-99) Calcium Level 9.8mg/dL (8.5-10.1) Microbiology 09/16/16 Blood Culture - Preliminary, Resulted NO GROWTH AFTER 3 DAYS Medications Current Medications Sodium Chloride (Iv Sodium Chloride 0.9% 1000ml Bag) 1,000 ml @ 125 mls/hr 1X ONCE IV Last administered on 09/15/16 11:45; Start 09/15/16 at 10:15; Stop 07/20 at 18:14; Status DC Ondansetron HCl 4 mg 4 mg PRN Q8HRS PRN IV NAUSEA/VOMITING; Start 09/15/16 at 15:30; Stop 09/15/16 at 17:12; Status DC Sodium Chloride (Iv Sodium Chloride 0.9% 1000ml Bag) 1,000 ml @ 125 mls/hr Q8H IV Last administered on 09/15/16 15:23; Start 09/15/16 at 15:23; Stop at 15:15; Status DC Acetaminophen (Tylenol) 650 mg PRN Q4HRS PRN PO FEVER; Start 09/15/16 at 15:30 ; Stop 09/15/16 at 17:12; Status DC Acetaminophen (Tylenol) 325 mg PRN Q6HRS PRN PO MILD PAIN / TEMP; Start at 17:15; Stop 09/16/16 at 15:15; Status DC Acetaminophen/ Hydrocodone Bitart (Lortab 5/325) 1 tab PRN Q6HRS PRN PO MODERATE TO SEVERE PAIN; Start 09/15/16 at 17:15 Hydralazine HCl (Apresoline) 10 mg PRN Q4HRS PRN IVP ELEVATED BP, SEE COMMENTS ; Start 09/15/16 at 17:15 Ondansetron HCl (Zofran) 4 mg PRN Q8HRS PRN IV NAUSEA/VOMITING; Start 09/15/16 at 17:15 Albuterol Sulfate 2.5 mg 2.5 mg PRN Q4HRS PRN NEB SHORTNESS OF BREATH; Start at 17:15; Stop 09/16/16 at 15:15; Status DC Sodium Chloride 1,000 ml @ 75 mls/hr 1X ONCE IV ; Start 09/15/16 at 17:15; Stop 09/15/16 at 17:15; Status DC Sodium Chloride (Iv Sodium Chloride 0.9% 1000ml Bag) 1,000 ml @ 75 mls/hr DAILY IV Last administered on 09/15/16 21:35; Start 09/15/16 at 17:15; Stop at 11:31; Status DC Enoxaparin Sodium (Lovenox 30mg Syringe) 30 mg Q24H SQ Last administered on 17:13; Start 09/15/16 at 18:00 Alprazolam (Xanax) 0.25 mg BID PO Last administered on 09/17/16 21:00; Start 09/16/16 at 01:15; Stop 09/18/16 at 10:22; Status DC Tramadol HCl (Ultram) 50 mg PRN Q6HRS PRN PO PAIN Last administered on 19:05; Start 09/16/16 at 01:15 Acetaminophen (Tylenol) 650 mg PRN Q6HRS PRN PO MILD PAIN / TEMP; Start at 11:30 Albuterol Sulfate (Ventolin Neb Soln) 2.5 mg PRN Q4HRS PRN NEB SHORTNESS OF BREATH; Start 09/16/16 at 11:30 Amlodipine Besylate (Norvasc) 10 mg DAILY PO Last administered on 09/18/16 10: 10; Start 09/16/16 at 12:30 Aspirin (Ecotrin) 81 mg DAILY PO Last administered on 09/17/16 10:08; Start at 12:30 Atenolol (Tenormin) 37.5 mg DAILY PO Last administered on 09/17/16 10:07; Start 09/16/16 at 12:30 Ferrous Sulfate (Feosol) 325 mg DAILY PO Last administered on 09/17/16 10:07; Start 09/16/16 at 12:30 Guaifenesin (Mucinex) 600 mg BID PO Last administered on 09/18/16 21:20; Start 09/16/16 at 12:30 Hydroxychloroquine Sulfate (Plaquenil) 200 mg DAILY PO Last administered on 10:09; Start 09/16/16 at 12:30 Levothyroxine Sodium (Synthroid) 100 mcg DAILY07 PO Last administered on 06:18; Start 09/16/16 at 12:30 Fish Oil (Fish Oil) 1,000 mg BID PO Last administered on 09/18/16 21:20; Start 09/16/16 at 12:30 Pilocarpine HCl (Salagen) 5 mg TID PO Last administered on 09/18/16 21:20; Start 09/16/16 at 14:00 Pramipexole Dihydrochloride (miraPEX) 0.25 mg DAILY PO Last administered on 10:09; Start 09/16/16 at 12:30 Trimethoprim/ Sulfamethoxazole (Bactrim Ds) 1 tab BID PO Last administered on 10:09; Start 09/16/16 at 12:30; Stop 09/18/16 at 10:58; Status DC Calcium/Vitamin D (Oscal D 500mg/ 200uts) 1 tab DAILY PO Last administered on 10:05; Start 09/16/16 at 12:30 Vitamin D (Vitamin D3) 2,000 unit DAILY PO Last administered on 09/17/16 10:07 ; Start 09/16/16 at 12:30 Escitalopram Oxalate (Lexapro) 20 mg DAILY PO Last administered on 09/17/16 10 :04; Start 09/16/16 at 12:30 Losartan Potassium (Cozaar) 100 mg DAILY PO Last administered on 09/18/16 10: 11; Start 09/16/16 at 12:30; Stop 09/19/16 at 12:21; Status DC Potassium Chloride 20 meq 20 meq [id number] PO Last administered on 09/17/16 10:06; Start 09/16/16 at 12:30; Stop 09/18/16 at 10:19; Status DC Amino Acids/ Glycerin/ Electrolytes (Procalamine) 1,000 ml @ 80 mls/hr [id number] IV Last administered on 09/19/16 06:19; Start 09/16/16 at 12:00 Acetaminophen/ Codeine Phosphate (Tylenol #3) 1 tab PRN Q6HRS PRN PO PAIN Last administered on 09/19/16 01:01; Start 09/17/16 at 02:15 Albuterol/ Ipratropium (Duoneb) 3 ml RTQID NEB Last administered on 09/19/16 12:05; Start 09/18/16 at 20:00 Active Scripts Active Reported Guaifenesin 600 Mg Tablet.er 600 Mg PO BID Bactrim Ds Tablet (Sulfamethoxazole/Trimethoprim) 1 Each Tablet 1 Each PO BID 5 Days Albuterol Sulfate Neb Soln (Albuterol Sulfate) 2.5 Mg/3 Ml Vial.neb 2.5 Mg NEB Q4HRS PRN Acetaminophen 325 Mg Tablet 650 Mg PO PRN Q6HRS PRN Tramadol Hcl 50 Mg Tablet 50 Mg PO Q6H PRN Vitamin E (Vitamin E Acid Succinate) 100 Unit Tablet 100 Unit PO Vitamin D-3 (Cholecalciferol (Vitamin D3)) 2,000 Unit Tablet 2,000 Unit PO DAILY Iron (Ferrous Sulfate) 325 Mg Tablet 325 Mg PO DAILY Aspir 81 (Aspirin) 81 Mg Tablet.dr 81 Mg PO DAILY Pramipexole Dihydrochloride (Pramipexole Di-Hcl) 0.25 Mg Tablet 0.25 Mg PO Fish Oil 1,000 Mg Capsule (Gilmer-3 Fatty Acids/Fish Oil) 1 Each Capsule 1 Each PO BID Potassium Chloride 20 Meq Tablet.er 20 Meq PO DAILY Plaquenil (Hydroxychloroquine Sulfate) 200 Mg Tablet 200 Mg PO DAILY Pilocarpine Hcl 5 Mg Tablet 5 Mg PO TID Lexapro (Escitalopram Oxalate) 20 Mg Tablet 1 Tab PO DAILY Calcium 500 + D Tablet (Calcium Carbonate/Vitamin D3) 1 Each Tablet 1 Each PO DAILY Levothyroxine Sodium 100 Mcg Tablet 1 Tab PO DAILY Xanax (Alprazolam) 0.25 Mg Tablet 1 Tab PO BID Atenolol 50 Mg Tablet 37.5 Mg PO DAILY TAKE 1 AND 1/2 TABLETS DAILY Losartan Potassium 100 Mg Tablet 100 Mg PO DAILY Norvasc (Amlodipine Besylate) 5 Mg Tablet 10 Mg PO DAILY Vitals/I & O Vital Sign - Last 24 Hours 09/18/16 09/18/16 09/18/16 09/18/16 15:20 19:00 19:05 19:51 Temp 99.0 98.6 99.0 98.6 Pulse 61 Resp 20 18 20 B/P 111/66 123/53 Pulse Ox 95 96 95 95 O2 Delivery Room Air Room Air Room Air Room Air O2 Flow Rate 2.0 09/18/16 09/18/16 09/18/16 09/19/16 20:00 21:20 23:00 03:37 Temp 98.6 98.8 98.6 98.8 Pulse 94 67 Resp 20 20 B/P 113/68 139/67 Pulse Ox 96 91 O2 Delivery Room Air Room Air Room Air 09/19/16 09/19/16 09/19/16 09/19/16 07:00 08:00 08:25 09:00 Temp 97.7 97.7 Pulse 66 58 Resp 18 B/P 134/54 134/54 Pulse Ox 97 O2 Delivery Room Air Room Air Room Air 09/19/16 09/19/16 11:00 12:05 Temp 98.1 98.1 Pulse 67 Resp 18 B/P 132/50 Pulse Ox 96 O2 Delivery Room Air Room Air Intake and Output 09/18/16 09/18/16 09/19/16 15:00 23:00 07:00 Intake Total 100 ml 150 ml Balance 100 ml 150 ml CHRISTINE WEBSTER MD Sep 19, 2016 14:49
[2016-09-19 15:00] VITALS: BP 138/60
[2016-09-19] MEDS: ALPRAZOLAM 0.25 MG TABLET PO PRN (17:22)
[2016-09-19] MEDS: HYDROCODONE/APAP 5/325MG TABLET. PO PRN (17:23)
[2016-09-19] MEDS: ENOXAPARIN 30 MG/0.3 ML DISP.SYRIN. SQ SCH (17:32)
[2016-09-19 19:00] VITALS: BP 142/66
[2016-09-19 23:02] VITALS: BP 127/56
[2016-09-20] MEDS: TRAMADOL 50 MG TABLET. PO PRN ×2 (02:39→14:32)
[2016-09-20] MEDS: ALPRAZOLAM 0.25 MG TABLET PO PRN ×3 (02:39→20:02)
[2016-09-20 03:00] VITALS: BP 140/55
[2016-09-20] MEDS: AA 3%/ELECTROLYTE-TPN SOLN/GLY 1,000 ML IV SCH ×2 (06:23→23:25)
[2016-09-20 07:50] LABS: BASO % 0 % (0-3); EOS % 4 % (0-3); HEMATOCRIT 29.6 % (36.0-47.0); HEMOGLOBIN 9.7 g/dL (12.0-15.5); LYMPH # 0.9 x10^3/uL (1.0-4.8); LYMPH % 10 % (24-48); MEAN CORPUSCULAR HEMOGLOBIN 29 pg (25-35); MEAN CORPUSCULAR HGB CONC 33 g/dL (31-37); MEAN CORPUSCULAR VOLUME 89 fL (79-100); MONO % 17 % (0-9); NEUT % 69 % (31-73); PLATELET COUNT 189 x10^3/uL (140-400); RED BLOOD COUNT 3.33 x10^6/uL (3.50-5.40); RED CELL DISTRIBUTION WIDTH 13.8 % (11.5-14.5); WHITE BLOOD COUNT 8.4 x10^3/uL (4.0-11.0)
[2016-09-20] MEDS: IPRATRPIUM/ALBUTEROL 0.5/2.5MG 3 ML NEBU. NEB SCH ×4 (07:50→20:18)
[2016-09-20 08:12] LABS: CALCIUM 9.8 mg/dL (8.5-10.1); CREATININE 1.2 mg/dL (0.6-1.0); GFR 43.2
[2016-09-20 08:13] LABS: POTASSIUM 5.6 mmol/L (3.5-5.1)
--- NOTE | 2016-09-20 08:40 | PDOC ---
PROGRESS NOTES Assessment Problems Medical Problems: (1) Acute metabolic encephalopathy Status: Acute (2) Acute renal failure Status: Acute (3) Dehydration Status: Acute Metabolic encephalopathy, better Expected progression of severe dementia Note patient does not have Parkinson's, is on pramipexole for restless legs. 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 Plan Okay for discharge back to [facility] when medically stable Discussed with daughter Subjective no complaints Objective Vital Signs Date Time Temp Pulse Resp B/P Pulse Ox O2 Delivery O2 Flow Rate FiO2 09/20/16 07:52 95 Room Air 09/20/16 03:00 97.9 73 21 140/55 97.9 Intake and Output 09/20/16 07:00 Intake Total 0 ml Balance 0 ml Intake Oral 0 ml # Voids 4 PHYSICAL EXAM Alert. Oriented to person. PERRL. EOMI. CN: no focal findings. Muscle tone: normal. Muscle strength: 3-4/5 DTR: 1+ Plantar reflex: Flexor, bilateral grasp reflexes Gait: not examined in bed. Sensory exam: no abnormal findings. No cerebellar signs elicited. Review of Relevant I have reviewed the following items sheridan (where applicable) has been applied. Labs Laboratory Tests Test 09/19/16 03:57 09/20/16 06:45 White Blood Count 8.7x10^3/uL (4.0-11.0) 8.4x10^3/uL (4.0-11.0) Red Blood Count 3.41x10^6/uL (3.50-5.40) 3.33x10^6/uL (3.50-5.40) Hemoglobin 10.0g/dL (12.0-15.5) 9.7g/dL (12.0-15.5) Hematocrit 29.9% (36.0-47.0) 29.6% (36.0-47.0) Mean Corpuscular Volume 88fL (79-100) 89fL (79-100) Mean Corpuscular Hemoglobin 29pg (25-35) 29pg (25-35) Mean Corpuscular Hemoglobin Concent 34g/dL (31-37) 33g/dL (31-37) Red Cell Distribution Width 13.9% (11.5-14.5) 13.8% (11.5-14.5) Platelet Count 170x10^3/uL (140-400) 189x10^3/uL (140-400) Neutrophils (%) (Auto) 71% (31-73) 69% (31-73) Lymphocytes (%) (Auto) 12% (24-48) 10% (24-48) Monocytes (%) (Auto) 15% (0-9) 17% (0-9) Eosinophils (%) (Auto) 2% (0-3) 4% (0-3) Basophils (%) (Auto) 0% (0-3) 0% (0-3) Neutrophils # (Auto) 6.2x10^3uL (1.8-7.7) 5.8x10^3uL (1.8-7.7) Lymphocytes # (Auto) 1.1x10^3/uL (1.0-4.8) 0.9x10^3/uL (1.0-4.8) Monocytes # (Auto) 1.3x10^3/uL (0.0-1.1) 1.4x10^3/uL (0.0-1.1) Eosinophils # (Auto) 0.2x10^3/uL (0.0-0.7) 0.3x10^3/uL (0.0-0.7) Basophils # (Auto) 0.0x10^3/uL (0.0-0.2) 0.0x10^3/uL (0.0-0.2) Sodium Level 135mmol/L (136-145) 138mmol/L (136-145) Potassium Level 5.9mmol/L (3.5-5.1) 5.6mmol/L (3.5-5.1) Chloride Level 104mmol/L (98-107) 107mmol/L (98-107) Carbon Dioxide Level 19mmol/L (21-32) 20mmol/L (21-32) Anion Gap 12 (6-14) 11 (6-14) Blood Urea Nitrogen 40mg/dL (7-20) 32mg/dL (7-20) Creatinine 1.7mg/dL (0.6-1.0) 1.2mg/dL (0.6-1.0) Estimated GFR (Cockcroft-Gault) 28.9 43.2 Glucose Level 76mg/dL (70-99) 91mg/dL (70-99) Calcium Level 9.8mg/dL (8.5-10.1) 9.8mg/dL (8.5-10.1) Laboratory Tests Test 09/20/16 06:45 White Blood Count 8.4x10^3/uL (4.0-11.0) Red Blood Count 3.33x10^6/uL (3.50-5.40) Hemoglobin 9.7g/dL (12.0-15.5) Hematocrit 29.6% (36.0-47.0) Mean Corpuscular Volume 89fL (79-100) Mean Corpuscular Hemoglobin 29pg (25-35) Mean Corpuscular Hemoglobin Concent 33g/dL (31-37) Red Cell Distribution Width 13.8% (11.5-14.5) Platelet Count 189x10^3/uL (140-400) Neutrophils (%) (Auto) 69% (31-73) Lymphocytes (%) (Auto) 10% (24-48) Monocytes (%) (Auto) 17% (0-9) Eosinophils (%) (Auto) 4% (0-3) Basophils (%) (Auto) 0% (0-3) Neutrophils # (Auto) 5.8x10^3uL (1.8-7.7) Lymphocytes # (Auto) 0.9x10^3/uL (1.0-4.8) Monocytes # (Auto) 1.4x10^3/uL (0.0-1.1) Eosinophils # (Auto) 0.3x10^3/uL (0.0-0.7) Basophils # (Auto) 0.0x10^3/uL (0.0-0.2) Sodium Level 138mmol/L (136-145) Potassium Level 5.6mmol/L (3.5-5.1) Chloride Level 107mmol/L (98-107) Carbon Dioxide Level 20mmol/L (21-32) Anion Gap 11 (6-14) Blood Urea Nitrogen 32mg/dL (7-20) Creatinine 1.2mg/dL (0.6-1.0) Estimated GFR (Cockcroft-Gault) 43.2 Glucose Level 91mg/dL (70-99) Calcium Level 9.8mg/dL (8.5-10.1) Microbiology 09/16/16 Blood Culture - Preliminary, Resulted NO GROWTH AFTER 4 DAYS Medications Current Medications Sodium Chloride (Iv Sodium Chloride 0.9% 1000ml Bag) 1,000 ml @ 125 mls/hr 1X ONCE IV Last administered on 09/15/16 11:45; Start 09/15/16 at 10:15; Stop 07/20 at 18:14; Status DC Ondansetron HCl 4 mg 4 mg PRN Q8HRS PRN IV NAUSEA/VOMITING; Start 09/15/16 at 15:30; Stop 09/15/16 at 17:12; Status DC Sodium Chloride (Iv Sodium Chloride 0.9% 1000ml Bag) 1,000 ml @ 125 mls/hr Q8H IV Last administered on 09/15/16 15:23; Start 09/15/16 at 15:23; Stop at 15:15; Status DC Acetaminophen (Tylenol) 650 mg PRN Q4HRS PRN PO FEVER; Start 09/15/16 at 15:30 ; Stop 09/15/16 at 17:12; Status DC Acetaminophen (Tylenol) 325 mg PRN Q6HRS PRN PO MILD PAIN / TEMP; Start at 17:15; Stop 09/16/16 at 15:15; Status DC Acetaminophen/ Hydrocodone Bitart (Lortab 5/325) 1 tab PRN Q6HRS PRN PO MODERATE TO SEVERE PAIN Last administered on 09/19/16 17:23; Start 09/15/16 at 17:15 Hydralazine HCl (Apresoline) 10 mg PRN Q4HRS PRN IVP ELEVATED BP, SEE COMMENTS ; Start 09/15/16 at 17:15 Ondansetron HCl (Zofran) 4 mg PRN Q8HRS PRN IV NAUSEA/VOMITING; Start 09/15/16 at 17:15 Albuterol Sulfate 2.5 mg 2.5 mg PRN Q4HRS PRN NEB SHORTNESS OF BREATH; Start at 17:15; Stop 09/16/16 at 15:15; Status DC Sodium Chloride 1,000 ml @ 75 mls/hr 1X ONCE IV ; Start 09/15/16 at 17:15; Stop 09/15/16 at 17:15; Status DC Sodium Chloride (Iv Sodium Chloride 0.9% 1000ml Bag) 1,000 ml @ 75 mls/hr DAILY IV Last administered on 09/15/16 21:35; Start 09/15/16 at 17:15; Stop at 11:31; Status DC Enoxaparin Sodium (Lovenox 30mg Syringe) 30 mg Q24H SQ Last administered on 17:32; Start 09/15/16 at 18:00 Alprazolam (Xanax) 0.25 mg BID PO Last administered on 09/17/16 21:00; Start 09/16/16 at 01:15; Stop 09/18/16 at 10:22; Status DC Tramadol HCl (Ultram) 50 mg PRN Q6HRS PRN PO PAIN Last administered on 02:39; Start 09/16/16 at 01:15 Acetaminophen (Tylenol) 650 mg PRN Q6HRS PRN PO MILD PAIN / TEMP; Start at 11:30 Albuterol Sulfate (Ventolin Neb Soln) 2.5 mg PRN Q4HRS PRN NEB SHORTNESS OF BREATH; Start 09/16/16 at 11:30 Amlodipine Besylate (Norvasc) 10 mg DAILY PO Last administered on 09/18/16 10: 10; Start 09/16/16 at 12:30 Aspirin (Ecotrin) 81 mg DAILY PO Last administered on 09/17/16 10:08; Start at 12:30 Atenolol (Tenormin) 37.5 mg DAILY PO Last administered on 09/17/16 10:07; Start 09/16/16 at 12:30 Ferrous Sulfate (Feosol) 325 mg DAILY PO Last administered on 09/17/16 10:07; Start 09/16/16 at 12:30 Guaifenesin (Mucinex) 600 mg BID PO Last administered on 09/19/16 22:12; Start 09/16/16 at 12:30 Hydroxychloroquine Sulfate (Plaquenil) 200 mg DAILY PO Last administered on 10:09; Start 09/16/16 at 12:30 Levothyroxine Sodium (Synthroid) 100 mcg DAILY07 PO Last administered on 06:18; Start 09/16/16 at 12:30 Fish Oil (Fish Oil) 1,000 mg BID PO Last administered on 09/18/16 21:20; Start 09/16/16 at 12:30 Pilocarpine HCl (Salagen) 5 mg TID PO Last administered on 09/19/16 22:12; Start 09/16/16 at 14:00 Pramipexole Dihydrochloride (miraPEX) 0.25 mg DAILY PO Last administered on 22:12; Start 09/16/16 at 12:30 Trimethoprim/ Sulfamethoxazole (Bactrim Ds) 1 tab BID PO Last administered on 10:09; Start 09/16/16 at 12:30; Stop 09/18/16 at 10:58; Status DC Calcium/Vitamin D (Oscal D 500mg/ 200uts) 1 tab DAILY PO Last administered on 10:05; Start 09/16/16 at 12:30 Vitamin D (Vitamin D3) 2,000 unit DAILY PO Last administered on 09/17/16 10:07 ; Start 09/16/16 at 12:30 Escitalopram Oxalate (Lexapro) 20 mg DAILY PO Last administered on 09/17/16 10 :04; Start 09/16/16 at 12:30 Losartan Potassium (Cozaar) 100 mg DAILY PO Last administered on 09/18/16 10: 11; Start 09/16/16 at 12:30; Stop 09/19/16 at 12:21; Status DC Potassium Chloride 20 meq 20 meq [id number] PO Last administered on 09/17/16 10:06; Start 09/16/16 at 12:30; Stop 09/18/16 at 10:19; Status DC Amino Acids/ Glycerin/ Electrolytes (Procalamine) 1,000 ml @ 80 mls/hr [id number] IV Last administered on 09/19/16 17:23; Start 09/16/16 at 12:00 Acetaminophen/ Codeine Phosphate (Tylenol #3) 1 tab PRN Q6HRS PRN PO PAIN Last administered on 09/19/16 22:12; Start 09/17/16 at 02:15 Albuterol/ Ipratropium (Duoneb) 3 ml RTQID NEB Last administered on 09/20/16 07:50; Start 09/18/16 at 20:00 Alprazolam (Xanax) 0.25 mg PRN Q8HRS PRN PO ANXIETY / AGITATION Last administered on 09/20/16 02:39; Start 09/19/16 at 15:00 Active Scripts Active Reported Guaifenesin 600 Mg Tablet.er 600 Mg PO BID Bactrim Ds Tablet (Sulfamethoxazole/Trimethoprim) 1 Each Tablet 1 Each PO BID 5 Days Albuterol Sulfate Neb Soln (Albuterol Sulfate) 2.5 Mg/3 Ml Vial.neb 2.5 Mg NEB Q4HRS PRN Acetaminophen 325 Mg Tablet 650 Mg PO PRN Q6HRS PRN Tramadol Hcl 50 Mg Tablet 50 Mg PO Q6H PRN Vitamin E (Vitamin E Acid Succinate) 100 Unit Tablet 100 Unit PO Vitamin D-3 (Cholecalciferol (Vitamin D3)) 2,000 Unit Tablet 2,000 Unit PO DAILY Iron (Ferrous Sulfate) 325 Mg Tablet 325 Mg PO DAILY Aspir 81 (Aspirin) 81 Mg Tablet.dr 81 Mg PO DAILY Pramipexole Dihydrochloride (Pramipexole Di-Hcl) 0.25 Mg Tablet 0.25 Mg PO Fish Oil 1,000 Mg Capsule (Wells-3 Fatty Acids/Fish Oil) 1 Each Capsule 1 Each PO BID Potassium Chloride 20 Meq Tablet.er 20 Meq PO DAILY Plaquenil (Hydroxychloroquine Sulfate) 200 Mg Tablet 200 Mg PO DAILY Pilocarpine Hcl 5 Mg Tablet 5 Mg PO TID Lexapro (Escitalopram Oxalate) 20 Mg Tablet 1 Tab PO DAILY Calcium 500 + D Tablet (Calcium Carbonate/Vitamin D3) 1 Each Tablet 1 Each PO DAILY Levothyroxine Sodium 100 Mcg Tablet 1 Tab PO DAILY Xanax (Alprazolam) 0.25 Mg Tablet 1 Tab PO BID Atenolol 50 Mg Tablet 37.5 Mg PO DAILY TAKE 1 AND 1/2 TABLETS DAILY Losartan Potassium 100 Mg Tablet 100 Mg PO DAILY Norvasc (Amlodipine Besylate) 5 Mg Tablet 10 Mg PO DAILY Vitals/I & O Vital Sign - Last 24 Hours 09/19/16 09/19/16 09/19/16 09/19/16 09:00 11:00 12:05 15:00 Temp 98.1 98.3 98.1 98.3 Pulse 58 67 71 Resp 18 18 B/P 134/54 132/50 138/60 Pulse Ox 96 96 O2 Delivery Room Air Room Air Room Air 09/19/16 09/19/16 09/19/16 09/19/16 15:39 17:23 18:42 19:00 Temp 99.9 99.9 Pulse 78 Resp 19 B/P 142/66 Pulse Ox 93 O2 Delivery Room Air Room Air Room Air Room Air 09/19/16 09/19/16 09/19/16 09/20/16 20:00 21:58 23:02 03:00 Temp 97.7 97.9 97.7 97.9 Pulse 77 73 Resp 20 21 B/P 127/56 140/55 Pulse Ox 97 98 O2 Delivery Room Air Room Air Room Air Room Air 09/20/16 07:52 Pulse Ox 95 O2 Delivery Room Air Intake and Output 09/19/16 09/19/16 09/20/16 15:00 23:00 07:00 Intake Total 0 ml Balance 0 ml IZABELLA ROJAS MD Sep 20, 2016 08:40
[2016-09-20] MEDS: GUAIFENESIN ER 600 MG TABLET.ER PO SCH ×3 (09:00→20:02)
[2016-09-20] MEDS: CALCIUM CARB/VIT D3 500/200 TABLET PO SCH ×2 (09:00→09:30)
[2016-09-20] MEDS: OMEGA-3 FATTY ACIDS/FISH OIL 1,000 MG CAPSULE. PO SCH ×4 (09:00→21:00)
[2016-09-20] MEDS: PILOCARPINE 5 MG TABLET. PO SCH ×4 (09:27→20:02)
[2016-09-20] MEDS: HYDROXYCHLOROQUINE 200 MG TABLET PO SCH (09:27)
[2016-09-20] MEDS: ESCITALOPRAM 10 MG TABLET. PO SCH (09:27)
[2016-09-20] MEDS: PRAMIPEXOLE 0.25 MG TABLET. PO SCH (09:28)
[2016-09-20] MEDS: FERROUS SULFATE 325 MG TABLET PO SCH (09:29)
[2016-09-20] MEDS: ASPIRIN ENTERIC COATED 81 MG TABLET.DR. PO SCH (09:29)
[2016-09-20] MEDS: LEVOTHYROXINE 100 MCG TABLET PO SCH (09:30)
[2016-09-20] MEDS: CHOLECALCIFEROL (VITAMIN D3) 1,000 UNIT TABLET PO SCH (09:30)
[2016-09-20] MEDS: AMLODIPINE BESYLATE 10 MG TABLET PO SCH (09:34)
[2016-09-20] MEDS: ATENOLOL 25 MG TABLET PO SCH (09:35)
[2016-09-20 09:37] VITALS: BP 143/58
[2016-09-20 11:00] VITALS: BP 137/56
--- NOTE | 2016-09-20 11:10 | PDOC ---
Renal-Progress Notes Subjective Notes Notes NONE History of Present Illness Hx of present illness STABLE Vitals Vitals Vital Signs Date Time Temp Pulse Resp B/P Pulse Ox O2 Delivery O2 Flow Rate FiO2 09/20/16 11:00 100.9 64 18 137/56 96 Room Air 100.9 Weight Weight [ ] I.O. Intake and Output Intake and Output 09/20/16 07:00 Intake Total 0 ml Balance 0 ml Intake Oral 0 ml # Voids 4 Labs Labs Laboratory Tests Test 09/20/16 06:45 White Blood Count 8.4x10^3/uL (4.0-11.0) Red Blood Count 3.33x10^6/uL (3.50-5.40) Hemoglobin 9.7g/dL (12.0-15.5) Hematocrit 29.6% (36.0-47.0) Mean Corpuscular Volume 89fL (79-100) Mean Corpuscular Hemoglobin 29pg (25-35) Mean Corpuscular Hemoglobin Concent 33g/dL (31-37) Red Cell Distribution Width 13.8% (11.5-14.5) Platelet Count 189x10^3/uL (140-400) Neutrophils (%) (Auto) 69% (31-73) Lymphocytes (%) (Auto) 10% (24-48) Monocytes (%) (Auto) 17% (0-9) Eosinophils (%) (Auto) 4% (0-3) Basophils (%) (Auto) 0% (0-3) Neutrophils # (Auto) 5.8x10^3uL (1.8-7.7) Lymphocytes # (Auto) 0.9x10^3/uL (1.0-4.8) Monocytes # (Auto) 1.4x10^3/uL (0.0-1.1) Eosinophils # (Auto) 0.3x10^3/uL (0.0-0.7) Basophils # (Auto) 0.0x10^3/uL (0.0-0.2) Sodium Level 138mmol/L (136-145) Potassium Level 5.6mmol/L (3.5-5.1) Chloride Level 107mmol/L (98-107) Carbon Dioxide Level 20mmol/L (21-32) Anion Gap 11 (6-14) Blood Urea Nitrogen 32mg/dL (7-20) Creatinine 1.2mg/dL (0.6-1.0) Estimated GFR (Cockcroft-Gault) 43.2 Glucose Level 91mg/dL (70-99) Calcium Level 9.8mg/dL (8.5-10.1) Micro Micro Microbiology 09/16/16 Blood Culture - Preliminary, Resulted NO GROWTH AFTER 4 DAYS Review of Systems Constitutional: yes: no symptom reported Physical Exam General Appearance: no apparent distress Skin: warm Respiratory: decreased breath sounds Heart: S1S2, RRR Abdomen: soft, bowel sounds present Extremities: pulses present Neurology: alert Musculoskeletal: Osteoarthritis Assessment Assessment IMP DANIELLE-RESOLVED CKD STAGE 3 TO 4 HYPERKALEMIA-RESOLVED HYPOVOLEMIA-BETTER DEMENTIA PLAN PPN-ENC PO CONT WITHOUT ARB WILL FOLLOW LABS IN AM RADHA SIDHU MD Sep 20, 2016 11:10
[2016-09-20 12:49] LABS: % EOS 1 % (0-5); PLT ESTIMATE ADEQUATE (ADEQUATE)
--- NOTE | 2016-09-20 13:04 | PDOC ---
PROGRESS NOTES Chief Complaint Chief Complaint Acute metabolic encephalopathy on dementia, w. delirium 1. Metabolic Encephalopathy, 2. 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 Leukocytosis, 4. AMS 5. Acute on chronic kidney disease, vasomotor, now hyperkalemia, 6. Prior history of dementia, w. delirium 7. Parkinson's disease, 8. Hypothyroidism 9. Depression 10. Mod malnutrition, History of Present Illness History of Present Illness creatinine continues to improve 1.2 today K high side BUt pt VERY weak PT recs SNU Dw dtr at bedside Wants to know what [facility] can offer - then they will disucss if back to [facility] or needs SNU Dtr also agreeable to meet with palliative They are very realistic and open minded SO far pt full code Pt asleep - did not awaken PLAN: Involve palliative PT/OT to cont Dw SW Dw dtr NO K supplements pls Vitals Vitals Vital Signs Date Time Temp Pulse Resp B/P Pulse Ox O2 Delivery O2 Flow Rate FiO2 09/20/16 11:22 Room Air 09/20/16 11:00 100.9 64 18 137/56 96 100.9 Physical Exam Physical Exam Adult diaper in place; Left knee has bruise present, not oriented General: Cooperative Heart: Regular rate, Normal S1, Normal S2 Lungs: Clear, Other (no wheezes) Abdomen: Normal bowel sounds, Soft Extremities: No clubbing Skin: No breakdown, No significant lesion Labs LABS Laboratory Tests Test 09/20/16 06:45 White Blood Count 8.4x10^3/uL (4.0-11.0) Red Blood Count 3.33x10^6/uL (3.50-5.40) Hemoglobin 9.7g/dL (12.0-15.5) Hematocrit 29.6% (36.0-47.0) Mean Corpuscular Volume 89fL (79-100) Mean Corpuscular Hemoglobin 29pg (25-35) Mean Corpuscular Hemoglobin Concent 33g/dL (31-37) Red Cell Distribution Width 13.8% (11.5-14.5) Platelet Count 189x10^3/uL (140-400) Neutrophils (%) (Auto) 69% (31-73) Lymphocytes (%) (Auto) 10% (24-48) Monocytes (%) (Auto) 17% (0-9) Eosinophils (%) (Auto) 4% (0-3) Basophils (%) (Auto) 0% (0-3) Neutrophils # (Auto) 5.8x10^3uL (1.8-7.7) Lymphocytes # (Auto) 0.9x10^3/uL (1.0-4.8) Monocytes # (Auto) 1.4x10^3/uL (0.0-1.1) Eosinophils # (Auto) 0.3x10^3/uL (0.0-0.7) Basophils # (Auto) 0.0x10^3/uL (0.0-0.2) Segmented Neutrophils % 63% (35-66) Lymphocytes % 16% (24-48) Monocytes % 20% (0-10) Eosinophils % 1% (0-5) Platelet Estimate Adequate (ADEQUATE) Sodium Level 138mmol/L (136-145) Potassium Level 5.6mmol/L (3.5-5.1) Chloride Level 107mmol/L (98-107) Carbon Dioxide Level 20mmol/L (21-32) Anion Gap 11 (6-14) Blood Urea Nitrogen 32mg/dL (7-20) Creatinine 1.2mg/dL (0.6-1.0) Estimated GFR (Cockcroft-Gault) 43.2 Glucose Level 91mg/dL (70-99) Calcium Level 9.8mg/dL (8.5-10.1) Review of Systems Review of Systems did not awaken - allowed to rest Assessment and Plan Assessmemt and Plan Problems Medical Problems: (1) Acute metabolic encephalopathy Status: Acute (2) Acute renal failure Status: Acute (3) Dehydration Status: Acute Problems: Comment Review of Relevant I have reviewed the following items sheridan (where applicable) has been applied. Labs Laboratory Tests Test 09/19/16 03:57 09/20/16 06:45 White Blood Count 8.7x10^3/uL (4.0-11.0) 8.4x10^3/uL (4.0-11.0) Red Blood Count 3.41x10^6/uL (3.50-5.40) 3.33x10^6/uL (3.50-5.40) Hemoglobin 10.0g/dL (12.0-15.5) 9.7g/dL (12.0-15.5) Hematocrit 29.9% (36.0-47.0) 29.6% (36.0-47.0) Mean Corpuscular Volume 88fL (79-100) 89fL (79-100) Mean Corpuscular Hemoglobin 29pg (25-35) 29pg (25-35) Mean Corpuscular Hemoglobin Concent 34g/dL (31-37) 33g/dL (31-37) Red Cell Distribution Width 13.9% (11.5-14.5) 13.8% (11.5-14.5) Platelet Count 170x10^3/uL (140-400) 189x10^3/uL (140-400) Neutrophils (%) (Auto) 71% (31-73) 69% (31-73) Lymphocytes (%) (Auto) 12% (24-48) 10% (24-48) Monocytes (%) (Auto) 15% (0-9) 17% (0-9) Eosinophils (%) (Auto) 2% (0-3) 4% (0-3) Basophils (%) (Auto) 0% (0-3) 0% (0-3) Neutrophils # (Auto) 6.2x10^3uL (1.8-7.7) 5.8x10^3uL (1.8-7.7) Lymphocytes # (Auto) 1.1x10^3/uL (1.0-4.8) 0.9x10^3/uL (1.0-4.8) Monocytes # (Auto) 1.3x10^3/uL (0.0-1.1) 1.4x10^3/uL (0.0-1.1) Eosinophils # (Auto) 0.2x10^3/uL (0.0-0.7) 0.3x10^3/uL (0.0-0.7) Basophils # (Auto) 0.0x10^3/uL (0.0-0.2) 0.0x10^3/uL (0.0-0.2) Sodium Level 135mmol/L (136-145) 138mmol/L (136-145) Potassium Level 5.9mmol/L (3.5-5.1) 5.6mmol/L (3.5-5.1) Chloride Level 104mmol/L (98-107) 107mmol/L (98-107) Carbon Dioxide Level 19mmol/L (21-32) 20mmol/L (21-32) Anion Gap 12 (6-14) 11 (6-14) Blood Urea Nitrogen 40mg/dL (7-20) 32mg/dL (7-20) Creatinine 1.7mg/dL (0.6-1.0) 1.2mg/dL (0.6-1.0) Estimated GFR (Cockcroft-Gault) 28.9 43.2 Glucose Level 76mg/dL (70-99) 91mg/dL (70-99) Calcium Level 9.8mg/dL (8.5-10.1) 9.8mg/dL (8.5-10.1) Segmented Neutrophils % 63% (35-66) Lymphocytes % 16% (24-48) Monocytes % 20% (0-10) Eosinophils % 1% (0-5) Platelet Estimate Adequate (ADEQUATE) Laboratory Tests Test 09/20/16 06:45 White Blood Count 8.4x10^3/uL (4.0-11.0) Red Blood Count 3.33x10^6/uL (3.50-5.40) Hemoglobin 9.7g/dL (12.0-15.5) Hematocrit 29.6% (36.0-47.0) Mean Corpuscular Volume 89fL (79-100) Mean Corpuscular Hemoglobin 29pg (25-35) Mean Corpuscular Hemoglobin Concent 33g/dL (31-37) Red Cell Distribution Width 13.8% (11.5-14.5) Platelet Count 189x10^3/uL (140-400) Neutrophils (%) (Auto) 69% (31-73) Lymphocytes (%) (Auto) 10% (24-48) Monocytes (%) (Auto) 17% (0-9) Eosinophils (%) (Auto) 4% (0-3) Basophils (%) (Auto) 0% (0-3) Neutrophils # (Auto) 5.8x10^3uL (1.8-7.7) Lymphocytes # (Auto) 0.9x10^3/uL (1.0-4.8) Monocytes # (Auto) 1.4x10^3/uL (0.0-1.1) Eosinophils # (Auto) 0.3x10^3/uL (0.0-0.7) Basophils # (Auto) 0.0x10^3/uL (0.0-0.2) Segmented Neutrophils % 63% (35-66) Lymphocytes % 16% (24-48) Monocytes % 20% (0-10) Eosinophils % 1% (0-5) Platelet Estimate Adequate (ADEQUATE) Sodium Level 138mmol/L (136-145) Potassium Level 5.6mmol/L (3.5-5.1) Chloride Level 107mmol/L (98-107) Carbon Dioxide Level 20mmol/L (21-32) Anion Gap 11 (6-14) Blood Urea Nitrogen 32mg/dL (7-20) Creatinine 1.2mg/dL (0.6-1.0) Estimated GFR (Cockcroft-Gault) 43.2 Glucose Level 91mg/dL (70-99) Calcium Level 9.8mg/dL (8.5-10.1) Microbiology 09/16/16 Blood Culture - Preliminary, Resulted NO GROWTH AFTER 4 DAYS Medications Current Medications Sodium Chloride (Iv Sodium Chloride 0.9% 1000ml Bag) 1,000 ml @ 125 mls/hr 1X ONCE IV Last administered on 09/15/16 11:45; Start 09/15/16 at 10:15; Stop 07/20 at 18:14; Status DC Ondansetron HCl 4 mg 4 mg PRN Q8HRS PRN IV NAUSEA/VOMITING; Start 09/15/16 at 15:30; Stop 09/15/16 at 17:12; Status DC Sodium Chloride (Iv Sodium Chloride 0.9% 1000ml Bag) 1,000 ml @ 125 mls/hr Q8H IV Last administered on 09/15/16 15:23; Start 09/15/16 at 15:23; Stop at 15:15; Status DC Acetaminophen (Tylenol) 650 mg PRN Q4HRS PRN PO FEVER; Start 09/15/16 at 15:30 ; Stop 09/15/16 at 17:12; Status DC Acetaminophen (Tylenol) 325 mg PRN Q6HRS PRN PO MILD PAIN / TEMP; Start at 17:15; Stop 09/16/16 at 15:15; Status DC Acetaminophen/ Hydrocodone Bitart (Lortab 5/325) 1 tab PRN Q6HRS PRN PO MODERATE TO SEVERE PAIN Last administered on 09/19/16 17:23; Start 09/15/16 at 17:15 Hydralazine HCl (Apresoline) 10 mg PRN Q4HRS PRN IVP ELEVATED BP, SEE COMMENTS ; Start 09/15/16 at 17:15 Ondansetron HCl (Zofran) 4 mg PRN Q8HRS PRN IV NAUSEA/VOMITING; Start 09/15/16 at 17:15 Albuterol Sulfate 2.5 mg 2.5 mg PRN Q4HRS PRN NEB SHORTNESS OF BREATH; Start at 17:15; Stop 09/16/16 at 15:15; Status DC Sodium Chloride 1,000 ml @ 75 mls/hr 1X ONCE IV ; Start 09/15/16 at 17:15; Stop 09/15/16 at 17:15; Status DC Sodium Chloride (Iv Sodium Chloride 0.9% 1000ml Bag) 1,000 ml @ 75 mls/hr DAILY IV Last administered on 09/15/16 21:35; Start 09/15/16 at 17:15; Stop at 11:31; Status DC Enoxaparin Sodium (Lovenox 30mg Syringe) 30 mg Q24H SQ Last administered on 17:32; Start 09/15/16 at 18:00 Alprazolam (Xanax) 0.25 mg BID PO Last administered on 09/17/16 21:00; Start 09/16/16 at 01:15; Stop 09/18/16 at 10:22; Status DC Tramadol HCl (Ultram) 50 mg PRN Q6HRS PRN PO PAIN Last administered on 02:39; Start 09/16/16 at 01:15 Acetaminophen (Tylenol) 650 mg PRN Q6HRS PRN PO MILD PAIN / TEMP; Start at 11:30 Albuterol Sulfate (Ventolin Neb Soln) 2.5 mg PRN Q4HRS PRN NEB SHORTNESS OF BREATH; Start 09/16/16 at 11:30 Amlodipine Besylate (Norvasc) 10 mg DAILY PO Last administered on 09/20/16 09: 34; Start 09/16/16 at 12:30 Aspirin (Ecotrin) 81 mg DAILY PO Last administered on 09/20/16 09:29; Start at 12:30 Atenolol (Tenormin) 37.5 mg DAILY PO Last administered on 09/20/16 09:35; Start 09/16/16 at 12:30 Ferrous Sulfate (Feosol) 325 mg DAILY PO Last administered on 09/20/16 09:29; Start 09/16/16 at 12:30 Guaifenesin (Mucinex) 600 mg BID PO Last administered on 09/20/16 09:29; Start 09/16/16 at 12:30 Hydroxychloroquine Sulfate (Plaquenil) 200 mg DAILY PO Last administered on 09:27; Start 09/16/16 at 12:30 Levothyroxine Sodium (Synthroid) 100 mcg DAILY07 PO Last administered on 09:30; Start 09/16/16 at 12:30 Fish Oil (Fish Oil) 1,000 mg BID PO Last administered on 09/20/16 09:28; Start 09/16/16 at 12:30 [place] HCl (Salagen) 5 mg TID PO Last administered on 09/20/16 09:27; Start 09/16/16 at 14:00 Pramipexole Dihydrochloride (miraPEX) 0.25 mg DAILY PO Last administered on 09:28; Start 09/16/16 at 12:30 Trimethoprim/ Sulfamethoxazole (Bactrim Ds) 1 tab BID PO Last administered on 10:09; Start 09/16/16 at 12:30; Stop 09/18/16 at 10:58; Status DC Calcium/Vitamin D (Oscal D 500mg/ 200uts) 1 tab DAILY PO Last administered on 09:30; Start 09/16/16 at 12:30 Vitamin D (Vitamin D3) 2,000 unit DAILY PO Last administered on 09/20/16 09:30 ; Start 09/16/16 at 12:30 Escitalopram Oxalate (Lexapro) 20 mg DAILY PO Last administered on 09/20/16 09 :27; Start 09/16/16 at 12:30 Losartan Potassium (Cozaar) 100 mg DAILY PO Last administered on 09/18/16 10: 11; Start 09/16/16 at 12:30; Stop 09/19/16 at 12:21; Status DC Potassium Chloride 20 meq 20 meq [id number] PO Last administered on 09/17/16 10:06; Start 09/16/16 at 12:30; Stop 09/18/16 at 10:19; Status DC Amino Acids/ Glycerin/ Electrolytes (Procalamine) 1,000 ml @ 80 mls/hr [id number] IV Last administered on 09/20/16 06:23; Start 09/16/16 at 12:00 Acetaminophen/ Codeine Phosphate (Tylenol #3) 1 tab PRN Q6HRS PRN PO PAIN Last administered on 09/19/16 22:12; Start 09/17/16 at 02:15 Albuterol/ Ipratropium (Duoneb) 3 ml RTQID NEB Last administered on 09/20/16 11:21; Start 09/18/16 at 20:00 Alprazolam (Xanax) 0.25 mg PRN Q8HRS PRN PO ANXIETY / AGITATION Last administered on 09/20/16 02:39; Start 09/19/16 at 15:00 Active Scripts Active Reported Guaifenesin 600 Mg Tablet.er 600 Mg PO BID Bactrim Ds Tablet (Sulfamethoxazole/Trimethoprim) 1 Each Tablet 1 Each PO BID 5 Days Albuterol Sulfate Neb Soln (Albuterol Sulfate) 2.5 Mg/3 Ml Vial.neb 2.5 Mg NEB Q4HRS PRN Acetaminophen 325 Mg Tablet 650 Mg PO PRN Q6HRS PRN Tramadol Hcl 50 Mg Tablet 50 Mg PO Q6H PRN Vitamin E (Vitamin E Acid Succinate) 100 Unit Tablet 100 Unit PO Vitamin D-3 (Cholecalciferol (Vitamin D3)) 2,000 Unit Tablet 2,000 Unit PO DAILY Iron (Ferrous Sulfate) 325 Mg Tablet 325 Mg PO DAILY Aspir 81 (Aspirin) 81 Mg Tablet.dr 81 Mg PO DAILY Pramipexole Dihydrochloride (Pramipexole Di-Hcl) 0.25 Mg Tablet 0.25 Mg PO Fish Oil 1,000 Mg Capsule ([place]-3 Fatty Acids/Fish Oil) 1 Each Capsule 1 Each PO BID Potassium Chloride 20 Meq Tablet.er 20 Meq PO DAILY Plaquenil (Hydroxychloroquine Sulfate) 200 Mg Tablet 200 Mg PO DAILY [place] Hcl 5 Mg Tablet 5 Mg PO TID Lexapro (Escitalopram Oxalate) 20 Mg Tablet 1 Tab PO DAILY Calcium 500 + D Tablet (Calcium Carbonate/Vitamin D3) 1 Each Tablet 1 Each PO DAILY Levothyroxine Sodium 100 Mcg Tablet 1 Tab PO DAILY Xanax (Alprazolam) 0.25 Mg Tablet 1 Tab PO BID Atenolol 50 Mg Tablet 37.5 Mg PO DAILY TAKE 1 AND 1/2 TABLETS DAILY Losartan Potassium 100 Mg Tablet 100 Mg PO DAILY Norvasc (Amlodipine Besylate) 5 Mg Tablet 10 Mg PO DAILY Vitals/I & O Vital Sign - Last 24 Hours 09/19/16 09/19/16 09/19/16 09/19/16 15:00 15:39 17:23 18:42 Temp 98.3 98.3 Pulse 71 Resp 18 B/P 138/60 Pulse Ox 96 O2 Delivery Room Air Room Air Room Air Room Air 09/19/16 09/19/16 09/19/16 09/19/16 19:00 20:00 21:58 23:02 Temp 99.9 97.7 99.9 97.7 Pulse 78 77 Resp 19 20 B/P 142/66 127/56 Pulse Ox 93 97 O2 Delivery Room Air Room Air Room Air Room Air 09/20/16 09/20/16 09/20/16 09/20/16 03:00 07:52 08:00 09:34 Temp 97.9 97.9 Pulse 73 69 Resp 21 B/P 140/55 143/58 Pulse Ox 98 95 O2 Delivery Room Air Room Air Room Air 09/20/16 09/20/16 09/20/16 09/20/16 09:35 09:37 11:00 11:22 Temp 100.4 100.9 100.4 100.9 Pulse 69 70 64 Resp 18 18 B/P 143/58 143/58 137/56 Pulse Ox 97 96 O2 Delivery Room Air Room Air Room Air Intake and Output 09/19/16 09/19/16 09/20/16 15:00 23:00 07:00 Intake Total 0 ml Balance 0 ml CHRISTINE WEBSTER MD Sep 20, 2016 13:04
[2016-09-20 15:00] VITALS: BP 131/47
[2016-09-20] MEDS: ENOXAPARIN 30 MG/0.3 ML DISP.SYRIN. SQ SCH (18:00)
[2016-09-20 19:00] VITALS: BP 142/56
--- NOTE | 2016-09-20 19:19 | PDOC2 ---
PALLIATIVE CARE Palliative Care Note Palliative Care Consult requested by Dr. Read Diagnosis: Metabolic Acidosis; CKD 3 Spoke with Daughter Anai; DPOA is not available today. Patient is confused Plan family meeting 1300 Friday SUZE PHILLIPS Sep 20, 2016 19:19
[2016-09-20] MEDS: HYDROCODONE/APAP 5/325MG TABLET. PO PRN (20:02)
[2016-09-20 23:00] VITALS: BP 128/49
[2016-09-21 03:00] VITALS: BP 137/59
[2016-09-21] MEDS: ALPRAZOLAM 0.25 MG TABLET PO PRN ×3 (03:12→23:06)
[2016-09-21] MEDS: TRAMADOL 50 MG TABLET. PO PRN ×2 (03:12→23:06)
[2016-09-21] MEDS: HYDROCODONE/APAP 5/325MG TABLET. PO PRN (03:12)
[2016-09-21 05:12] LABS: BASO % 0 % (0-3); EOS % 5 % (0-3); HEMATOCRIT 27.4 % (36.0-47.0); HEMOGLOBIN 9.1 g/dL (12.0-15.5); LYMPH # 1.1 x10^3/uL (1.0-4.8); LYMPH % 13 % (24-48); MEAN CORPUSCULAR HEMOGLOBIN 29 pg (25-35); MEAN CORPUSCULAR HGB CONC 33 g/dL (31-37); MEAN CORPUSCULAR VOLUME 88 fL (79-100); MONO % 18 % (0-9); NEUT % 64 % (31-73); PLATELET COUNT 202 x10^3/uL (140-400); WHITE BLOOD COUNT 8.2 x10^3/uL (4.0-11.0)
[2016-09-21 06:21] LABS: CALCIUM 9.4 mg/dL (8.5-10.1); CREATININE 1.2 mg/dL (0.6-1.0); GFR 43.2; POTASSIUM 4.8 mmol/L (3.5-5.1)
[2016-09-21 07:20] VITALS: BP 150/52
[2016-09-21] MEDS: IPRATRPIUM/ALBUTEROL 0.5/2.5MG 3 ML NEBU. NEB SCH ×4 (07:45→20:31)
[2016-09-21] MEDS: GUAIFENESIN ER 600 MG TABLET.ER PO SCH ×3 (09:00→20:49)
[2016-09-21] MEDS: CALCIUM CARB/VIT D3 500/200 TABLET PO SCH (09:00)
[2016-09-21] MEDS: OMEGA-3 FATTY ACIDS/FISH OIL 1,000 MG CAPSULE. PO SCH ×2 (09:00→20:39)
[2016-09-21] MEDS: ESCITALOPRAM 10 MG TABLET. PO SCH (10:01)
[2016-09-21] MEDS: FERROUS SULFATE 325 MG TABLET PO SCH (10:03)
[2016-09-21] MEDS: AMLODIPINE BESYLATE 10 MG TABLET PO SCH (10:03)
[2016-09-21] MEDS: HYDROXYCHLOROQUINE 200 MG TABLET PO SCH (10:03)
[2016-09-21] MEDS: PILOCARPINE 5 MG TABLET. PO SCH ×3 (10:04→20:39)
[2016-09-21] MEDS: CHOLECALCIFEROL (VITAMIN D3) 1,000 UNIT TABLET PO SCH (10:05)
[2016-09-21] MEDS: LEVOTHYROXINE 100 MCG TABLET PO SCH (10:05)
[2016-09-21] MEDS: ATENOLOL 25 MG TABLET PO SCH (10:10)
[2016-09-21] MEDS: ASPIRIN 81 MG TAB.CHEW PO SCH (10:11)
[2016-09-21] MEDS: AA 3%/ELECTROLYTE-TPN SOLN/GLY 1,000 ML IV SCH ×2 (10:12→20:39)
[2016-09-21 11:46] VITALS: BP 134/52
--- NOTE | 2016-09-21 14:37 | PDOC ---
PROGRESS NOTES Chief Complaint Chief Complaint Acute metabolic encephalopathy on dementia, w. delirium 1. Metabolic Encephalopathy, 2. 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 Leukocytosis, 4. AMS 5. Acute on chronic kidney disease, vasomotor, now hyperkalemia, 6. Prior history of dementia, w. delirium 7. Parkinson's disease, 8. Hypothyroidism 9. Depression 10. Mod malnutrition, History of Present Illness History of Present Illness creatinine now stable at 1,2 (best) pt VERY weak PT recs SNU, pt lives in [place] [facility] leaning towards hospice [facility] mtg set up Friday 1 PM PLAN: [facility] mtg friday 1300 Dw dtrs at bedside NO new orders today DNR Supportive meds COnt prolamanine for now (ate only 14 bites) Vitals Vitals Vital Signs Date Time Temp Pulse Resp B/P Pulse Ox O2 Delivery O2 Flow Rate FiO2 09/21/16 11:46 97.9 63 19 134/52 94 Room Air 97.9 Physical Exam Physical Exam Adult diaper in place; Left knee has bruise present, not oriented General: Cooperative Heart: Regular rate, Normal S1, Normal S2 Lungs: Clear, Other (no wheezes) Abdomen: Normal bowel sounds, Soft Extremities: No clubbing Skin: No breakdown, No significant lesion Labs LABS Laboratory Tests Test 09/21/16 04:20 White Blood Count 8.2x10^3/uL (4.0-11.0) Red Blood Count 3.10x10^6/uL (3.50-5.40) Hemoglobin 9.1g/dL (12.0-15.5) Hematocrit 27.4% (36.0-47.0) Mean Corpuscular Volume 88fL (79-100) Mean Corpuscular Hemoglobin 29pg (25-35) Mean Corpuscular Hemoglobin Concent 33g/dL (31-37) Red Cell Distribution Width 14.0% (11.5-14.5) Platelet Count 202x10^3/uL (140-400) Neutrophils (%) (Auto) 64% (31-73) Lymphocytes (%) (Auto) 13% (24-48) Monocytes (%) (Auto) 18% (0-9) Eosinophils (%) (Auto) 5% (0-3) Basophils (%) (Auto) 0% (0-3) Neutrophils # (Auto) 5.2x10^3uL (1.8-7.7) Lymphocytes # (Auto) 1.1x10^3/uL (1.0-4.8) Monocytes # (Auto) 1.5x10^3/uL (0.0-1.1) Eosinophils # (Auto) 0.4x10^3/uL (0.0-0.7) Basophils # (Auto) 0.0x10^3/uL (0.0-0.2) Sodium Level 135mmol/L (136-145) Potassium Level 4.8mmol/L (3.5-5.1) Chloride Level 104mmol/L (98-107) Carbon Dioxide Level 21mmol/L (21-32) Anion Gap 10 (6-14) Blood Urea Nitrogen 30mg/dL (7-20) Creatinine 1.2mg/dL (0.6-1.0) Estimated GFR (Cockcroft-Gault) 43.2 Glucose Level 94mg/dL (70-99) Calcium Level 9.4mg/dL (8.5-10.1) Review of Systems Review of Systems cant be obtained, very weak Assessment and Plan Assessmemt and Plan Problems Medical Problems: (1) Acute metabolic encephalopathy Status: Acute (2) Acute renal failure Status: Acute (3) Dehydration Status: Acute Problems: Comment Review of Relevant I have reviewed the following items sheridan (where applicable) has been applied. Labs Laboratory Tests Test 09/20/16 06:45 09/21/16 04:20 White Blood Count 8.4x10^3/uL (4.0-11.0) 8.2x10^3/uL (4.0-11.0) Red Blood Count 3.33x10^6/uL (3.50-5.40) 3.10x10^6/uL (3.50-5.40) Hemoglobin 9.7g/dL (12.0-15.5) 9.1g/dL (12.0-15.5) Hematocrit 29.6% (36.0-47.0) 27.4% (36.0-47.0) Mean Corpuscular Volume 89fL (79-100) 88fL (79-100) Mean Corpuscular Hemoglobin 29pg (25-35) 29pg (25-35) Mean Corpuscular Hemoglobin Concent 33g/dL (31-37) 33g/dL (31-37) Red Cell Distribution Width 13.8% (11.5-14.5) 14.0% (11.5-14.5) Platelet Count 189x10^3/uL (140-400) 202x10^3/uL (140-400) Neutrophils (%) (Auto) 69% (31-73) 64% (31-73) Lymphocytes (%) (Auto) 10% (24-48) 13% (24-48) Monocytes (%) (Auto) 17% (0-9) 18% (0-9) Eosinophils (%) (Auto) 4% (0-3) 5% (0-3) Basophils (%) (Auto) 0% (0-3) 0% (0-3) Neutrophils # (Auto) 5.8x10^3uL (1.8-7.7) 5.2x10^3uL (1.8-7.7) Lymphocytes # (Auto) 0.9x10^3/uL (1.0-4.8) 1.1x10^3/uL (1.0-4.8) Monocytes # (Auto) 1.4x10^3/uL (0.0-1.1) 1.5x10^3/uL (0.0-1.1) Eosinophils # (Auto) 0.3x10^3/uL (0.0-0.7) 0.4x10^3/uL (0.0-0.7) Basophils # (Auto) 0.0x10^3/uL (0.0-0.2) 0.0x10^3/uL (0.0-0.2) Segmented Neutrophils % 63% (35-66) Lymphocytes % 16% (24-48) Monocytes % 20% (0-10) Eosinophils % 1% (0-5) Platelet Estimate Adequate (ADEQUATE) Sodium Level 138mmol/L (136-145) 135mmol/L (136-145) Potassium Level 5.6mmol/L (3.5-5.1) 4.8mmol/L (3.5-5.1) Chloride Level 107mmol/L (98-107) 104mmol/L (98-107) Carbon Dioxide Level 20mmol/L (21-32) 21mmol/L (21-32) Anion Gap 11 (6-14) 10 (6-14) Blood Urea Nitrogen 32mg/dL (7-20) 30mg/dL (7-20) Creatinine 1.2mg/dL (0.6-1.0) 1.2mg/dL (0.6-1.0) Estimated GFR (Cockcroft-Gault) 43.2 43.2 Glucose Level 91mg/dL (70-99) 94mg/dL (70-99) Calcium Level 9.8mg/dL (8.5-10.1) 9.4mg/dL (8.5-10.1) Laboratory Tests Test 09/21/16 04:20 White Blood Count 8.2x10^3/uL (4.0-11.0) Red Blood Count 3.10x10^6/uL (3.50-5.40) Hemoglobin 9.1g/dL (12.0-15.5) Hematocrit 27.4% (36.0-47.0) Mean Corpuscular Volume 88fL (79-100) Mean Corpuscular Hemoglobin 29pg (25-35) Mean Corpuscular Hemoglobin Concent 33g/dL (31-37) Red Cell Distribution Width 14.0% (11.5-14.5) Platelet Count 202x10^3/uL (140-400) Neutrophils (%) (Auto) 64% (31-73) Lymphocytes (%) (Auto) 13% (24-48) Monocytes (%) (Auto) 18% (0-9) Eosinophils (%) (Auto) 5% (0-3) Basophils (%) (Auto) 0% (0-3) Neutrophils # (Auto) 5.2x10^3uL (1.8-7.7) Lymphocytes # (Auto) 1.1x10^3/uL (1.0-4.8) Monocytes # (Auto) 1.5x10^3/uL (0.0-1.1) Eosinophils # (Auto) 0.4x10^3/uL (0.0-0.7) Basophils # (Auto) 0.0x10^3/uL (0.0-0.2) Sodium Level 135mmol/L (136-145) Potassium Level 4.8mmol/L (3.5-5.1) Chloride Level 104mmol/L (98-107) Carbon Dioxide Level 21mmol/L (21-32) Anion Gap 10 (6-14) Blood Urea Nitrogen 30mg/dL (7-20) Creatinine 1.2mg/dL (0.6-1.0) Estimated GFR (Cockcroft-Gault) 43.2 Glucose Level 94mg/dL (70-99) Calcium Level 9.4mg/dL (8.5-10.1) Microbiology 09/16/16 Blood Culture - Final, Complete NO GROWTH AFTER 5 DAYS Medications Current Medications Sodium Chloride (Iv Sodium Chloride 0.9% 1000ml Bag) 1,000 ml @ 125 mls/hr 1X ONCE IV Last administered on 09/15/16 11:45; Start 09/15/16 at 10:15; Stop 07/20 at 18:14; Status DC Ondansetron HCl 4 mg 4 mg PRN Q8HRS PRN IV NAUSEA/VOMITING; Start 09/15/16 at 15:30; Stop 09/15/16 at 17:12; Status DC Sodium Chloride (Iv Sodium Chloride 0.9% 1000ml Bag) 1,000 ml @ 125 mls/hr Q8H IV Last administered on 09/15/16 15:23; Start 09/15/16 at 15:23; Stop at 15:15; Status DC Acetaminophen (Tylenol) 650 mg PRN Q4HRS PRN PO FEVER; Start 09/15/16 at 15:30 ; Stop 09/15/16 at 17:12; Status DC Acetaminophen (Tylenol) 325 mg PRN Q6HRS PRN PO MILD PAIN / TEMP; Start at 17:15; Stop 09/16/16 at 15:15; Status DC Acetaminophen/ Hydrocodone Bitart (Lortab 5/325) 1 tab PRN Q6HRS PRN PO MODERATE TO SEVERE PAIN Last administered on 09/21/16 03:12; Start 09/15/16 at 17:15 Hydralazine HCl (Apresoline) 10 mg PRN Q4HRS PRN IVP ELEVATED BP, SEE COMMENTS ; Start 09/15/16 at 17:15 Ondansetron HCl (Zofran) 4 mg PRN Q8HRS PRN IV NAUSEA/VOMITING; Start 09/15/16 at 17:15 Albuterol Sulfate 2.5 mg 2.5 mg PRN Q4HRS PRN NEB SHORTNESS OF BREATH; Start at 17:15; Stop 09/16/16 at 15:15; Status DC Sodium Chloride 1,000 ml @ 75 mls/hr 1X ONCE IV ; Start 09/15/16 at 17:15; Stop 09/15/16 at 17:15; Status DC Sodium Chloride (Iv Sodium Chloride 0.9% 1000ml Bag) 1,000 ml @ 75 mls/hr DAILY IV Last administered on 09/15/16 21:35; Start 09/15/16 at 17:15; Stop at 11:31; Status DC Enoxaparin Sodium (Lovenox 30mg Syringe) 30 mg Q24H SQ Last administered on 18:00; Start 09/15/16 at 18:00; Stop 09/21/16 at 10:51; Status DC Alprazolam (Xanax) 0.25 mg BID PO Last administered on 09/17/16 21:00; Start 09/16/16 at 01:15; Stop 09/18/16 at 10:22; Status DC Tramadol HCl (Ultram) 50 mg PRN Q6HRS PRN PO PAIN Last administered on 03:12; Start 09/16/16 at 01:15 Acetaminophen (Tylenol) 650 mg PRN Q6HRS PRN PO MILD PAIN / TEMP; Start at 11:30 Albuterol Sulfate (Ventolin Neb Soln) 2.5 mg PRN Q4HRS PRN NEB SHORTNESS OF BREATH; Start 09/16/16 at 11:30 Amlodipine Besylate (Norvasc) 10 mg DAILY PO Last administered on 09/21/16 10: 03; Start 09/16/16 at 12:30 Aspirin (Ecotrin) 81 mg DAILY PO Last administered on 09/20/16 09:29; Start at 12:30; Stop 09/21/16 at 10:05; Status DC Atenolol (Tenormin) 37.5 mg DAILY PO Last administered on 09/21/16 10:10; Start 09/16/16 at 12:30 Ferrous Sulfate (Feosol) 325 mg DAILY PO Last administered on 09/21/16 10:03; Start 09/16/16 at 12:30 Guaifenesin (Mucinex) 600 mg BID PO Last administered on 09/20/16 20:02; Start 09/16/16 at 12:30 Hydroxychloroquine Sulfate (Plaquenil) 200 mg DAILY PO Last administered on 10:03; Start 09/16/16 at 12:30 Levothyroxine Sodium (Synthroid) 100 mcg DAILY07 PO Last administered on 10:05; Start 09/16/16 at 12:30 Fish Oil (Fish Oil) 1,000 mg BID PO Last administered on 09/18/16 21:20; Start 09/16/16 at 12:30 [place] HCl (Salagen) 5 mg TID PO Last administered on 09/21/16 10:04; Start 09/16/16 at 14:00 Pramipexole Dihydrochloride (miraPEX) 0.25 mg DAILY PO Last administered on 09:28; Start 09/16/16 at 12:30; Stop 09/21/16 at 11:19; Status DC Trimethoprim/ Sulfamethoxazole (Bactrim Ds) 1 tab BID PO Last administered on 10:09; Start 09/16/16 at 12:30; Stop 09/18/16 at 10:58; Status DC Calcium/Vitamin D (Oscal D 500mg/ 200uts) 1 tab DAILY PO Last administered on 10:05; Start 09/16/16 at 12:30 Vitamin D (Vitamin D3) 2,000 unit DAILY PO Last administered on 09/21/16 10:05 ; Start 09/16/16 at 12:30 Escitalopram Oxalate (Lexapro) 20 mg DAILY PO Last administered on 09/21/16 10 :01; Start 09/16/16 at 12:30 Losartan Potassium (Cozaar) 100 mg DAILY PO Last administered on 09/18/16 10: 11; Start 09/16/16 at 12:30; Stop 09/19/16 at 12:21; Status DC Potassium Chloride 20 meq 20 meq DAILYWBKFT PO Last administered on 09/17/16 10:06; Start 09/16/16 at 12:30; Stop 09/18/16 at 10:19; Status DC Amino Acids/ Glycerin/ Electrolytes (Procalamine) 1,000 ml @ 80 mls/hr [id number] IV Last administered on 09/21/16 10:12; Start 09/16/16 at 12:00 Acetaminophen/ Codeine Phosphate (Tylenol #3) 1 tab PRN Q6HRS PRN PO PAIN Last administered on 09/19/16 22:12; Start 09/17/16 at 02:15 Albuterol/ Ipratropium (Duoneb) 3 ml RTQID NEB Last administered on 09/21/16 11:42; Start 09/18/16 at 20:00 Alprazolam (Xanax) 0.25 mg PRN Q8HRS PRN PO ANXIETY / AGITATION Last administered on 09/21/16 03:12; Start 09/19/16 at 15:00 Aspirin (Children'S Aspirin) 81 mg [id number] PO Last administered on 10:11; Start 09/21/16 at 10:30 Enoxaparin Sodium (Lovenox 40mg Syringe) 40 mg Q24H SQ ; Start 09/21/16 at 18:00 Pramipexole Dihydrochloride (miraPEX) 0.25 mg DAILY PO ; Start 09/21/16 at 20:00 Active Scripts Active Reported Guaifenesin 600 Mg Tablet.er 600 Mg PO BID Bactrim Ds Tablet (Sulfamethoxazole/Trimethoprim) 1 Each Tablet 1 Each PO BID 5 Days Albuterol Sulfate Neb Soln (Albuterol Sulfate) 2.5 Mg/3 Ml Vial.neb 2.5 Mg NEB Q4HRS PRN Acetaminophen 325 Mg Tablet 650 Mg PO PRN Q6HRS PRN Tramadol Hcl 50 Mg Tablet 50 Mg PO Q6H PRN Vitamin E (Vitamin E Acid Succinate) 100 Unit Tablet 100 Unit PO Vitamin D-3 (Cholecalciferol (Vitamin D3)) 2,000 Unit Tablet 2,000 Unit PO DAILY Iron (Ferrous Sulfate) 325 Mg Tablet 325 Mg PO DAILY Aspir 81 (Aspirin) 81 Mg Tablet.dr 81 Mg PO DAILY Pramipexole Dihydrochloride (Pramipexole Di-Hcl) 0.25 Mg Tablet 0.25 Mg PO Fish Oil 1,000 Mg Capsule ([place]-3 Fatty Acids/Fish Oil) 1 Each Capsule 1 Each PO BID Potassium Chloride 20 Meq Tablet.er 20 Meq PO DAILY Plaquenil (Hydroxychloroquine Sulfate) 200 Mg Tablet 200 Mg PO DAILY [place] Hcl 5 Mg Tablet 5 Mg PO TID Lexapro (Escitalopram Oxalate) 20 Mg Tablet 1 Tab PO DAILY Calcium 500 + D Tablet (Calcium Carbonate/Vitamin D3) 1 Each Tablet 1 Each PO DAILY Levothyroxine Sodium 100 Mcg Tablet 1 Tab PO DAILY Xanax (Alprazolam) 0.25 Mg Tablet 1 Tab PO BID Atenolol 50 Mg Tablet 37.5 Mg PO DAILY TAKE 1 AND 1/2 TABLETS DAILY Losartan Potassium 100 Mg Tablet 100 Mg PO DAILY Norvasc (Amlodipine Besylate) 5 Mg Tablet 10 Mg PO DAILY Vitals/I & O Vital Sign - Last 24 Hours 09/20/16 09/20/16 09/20/16 09/20/16 15:00 15:15 19:00 20:00 Temp 100.0 98.6 100.0 98.6 Pulse 61 67 Resp 20 19 B/P 131/47 142/56 Pulse Ox 96 95 O2 Delivery Room Air Room Air Room Air Room Air 09/20/16 09/20/16 09/20/16 09/21/16 20:02 20:18 23:00 03:00 Temp 99.0 98.9 99.0 98.9 Pulse 61 63 Resp 18 19 B/P 128/49 137/59 Pulse Ox 99 96 96 O2 Delivery Room Air Room Air Room Air Room Air 09/21/16 09/21/16 09/21/16 09/21/16 03:12 03:12 05:10 05:10 O2 Delivery Room Air Room Air Room Air Room Air 09/21/16 09/21/16 09/21/16 09/21/16 07:20 07:45 08:00 10:03 Temp 97.1 97.1 Pulse 60 60 Resp 19 B/P 150/52 150/52 Pulse Ox 97 97 O2 Delivery Room Air Room Air Room Air 09/21/16 09/21/16 09/21/16 10:10 11:43 11:46 Temp 97.9 97.9 Pulse 60 63 Resp 19 B/P 150/52 134/52 Pulse Ox 97 94 O2 Delivery Room Air Room Air Intake and Output 09/20/16 09/20/16 09/21/16 15:00 23:00 07:00 Intake Total 100 ml 0 ml Balance 100 ml 0 ml CHRISTINE WEBSTER MD Sep 21, 2016 14:37
[2016-09-21 15:22] VITALS: BP 128/39
[2016-09-21] MEDS: ENOXAPARIN 40 MG/0.4 ML DISP.SYRIN. SQ SCH (18:37)
[2016-09-21 19:25] VITALS: BP 136/48
[2016-09-21] MEDS: PRAMIPEXOLE 0.25 MG TABLET. PO SCH (20:40)
[2016-09-21 23:25] VITALS: BP 141/55
[2016-09-22 03:25] VITALS: BP 135/61
[2016-09-22 05:41] LABS: BASO % 0 % (0-3); EOS % 5 % (0-3); HEMATOCRIT 28.7 % (36.0-47.0); HEMOGLOBIN 9.3 g/dL (12.0-15.5); LYMPH # 1.2 x10^3/uL (1.0-4.8); LYMPH % 15 % (24-48); MEAN CORPUSCULAR HEMOGLOBIN 29 pg (25-35); MEAN CORPUSCULAR HGB CONC 33 g/dL (31-37); MEAN CORPUSCULAR VOLUME 89 fL (79-100); MONO % 16 % (0-9); NEUT % 64 % (31-73); PLATELET COUNT 228 x10^3/uL (140-400); RED BLOOD COUNT 3.23 x10^6/uL (3.50-5.40); RED CELL DISTRIBUTION WIDTH 13.2 % (11.5-14.5); WHITE BLOOD COUNT 7.9 x10^3/uL (4.0-11.0)
[2016-09-22 06:06] LABS: CALCIUM 9.4 mg/dL (8.5-10.1); GFR 53.3; POTASSIUM 4.7 mmol/L (3.5-5.1)
[2016-09-22 07:33] VITALS: BP 141/58
[2016-09-22] MEDS: IPRATRPIUM/ALBUTEROL 0.5/2.5MG 3 ML NEBU. NEB SCH ×4 (07:48→19:27)
[2016-09-22] MEDS: GUAIFENESIN ER 600 MG TABLET.ER PO SCH (09:00)
[2016-09-22] MEDS: CALCIUM CARB/VIT D3 500/200 TABLET PO SCH (09:00)
[2016-09-22] MEDS: OMEGA-3 FATTY ACIDS/FISH OIL 1,000 MG CAPSULE. PO SCH (09:00)
[2016-09-22] MEDS: AA 3%/ELECTROLYTE-TPN SOLN/GLY 1,000 ML IV SCH ×2 (09:03→20:33)
[2016-09-22] MEDS: ESCITALOPRAM 10 MG TABLET. PO SCH (09:15)
[2016-09-22] MEDS: FERROUS SULFATE 325 MG TABLET PO SCH (09:16)
[2016-09-22] MEDS: ASPIRIN 81 MG TAB.CHEW PO SCH (09:16)
[2016-09-22] MEDS: HYDROXYCHLOROQUINE 200 MG TABLET PO SCH (09:16)
[2016-09-22] MEDS: PRAMIPEXOLE 0.25 MG TABLET. PO SCH (09:16)
[2016-09-22] MEDS: AMLODIPINE BESYLATE 10 MG TABLET PO SCH (09:17)
[2016-09-22] MEDS: CHOLECALCIFEROL (VITAMIN D3) 1,000 UNIT TABLET PO SCH (09:17)
[2016-09-22] MEDS: PILOCARPINE 5 MG TABLET. PO SCH ×4 (09:17→20:56)
[2016-09-22] MEDS: LEVOTHYROXINE 100 MCG TABLET PO SCH (09:17)
[2016-09-22] MEDS: ATENOLOL 25 MG TABLET PO SCH (09:18)
[2016-09-22] MEDS ORDERED: SODIUM CHLORIDE 0.65% NASAL SPRAY 45ML BOTTLE. NS PRN (10:15)
[2016-09-22 11:00] VITALS: BP 119/40
--- NOTE | 2016-09-22 11:15 | PDOC ---
PROGRESS NOTES Chief Complaint Chief Complaint Acute metabolic encephalopathy on dementia, w. delirium 1. Metabolic Encephalopathy, 2. 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 Leukocytosis, 4. AMS 5. Acute on chronic kidney disease, vasomotor, now hyperkalemia, 6. Prior history of dementia, w. delirium 7. Parkinson's disease, 8. Hypothyroidism 9. Depression 10. Mod malnutrition, 11. DNR 12. HOSPICE CANDIDATE History of Present Illness History of Present Illness Same remains, weak, ion and off confusion MInimal PO intake Living will says DNR and no TF, no PEG, not even IVF Difficulty administering some big pills this AM Family at bedside creatinine now stable at 1,2 (best) PLAN: Fam mtg friday Dw dtrs at bedside Stop some pills of no use anymore since hospice is being considered (ie MVI, plaquenil, mucinex oscal - too big pills, etc) DNR Supportive meds COnt prolamanine for now (ate only 14 bites) Dw family Vitals Vitals Vital Signs Date Time Temp Pulse Resp B/P Pulse Ox O2 Delivery O2 Flow Rate FiO2 09/22/16 09:18 71 141/58 09/22/16 08:00 Room Air 09/22/16 07:49 96 09/22/16 07:33 97.4 20 97.4 Physical Exam Physical Exam Adult diaper in place; Left knee has bruise present, not oriented General: Cooperative Heart: Regular rate, Normal S1, Normal S2 Lungs: Clear, Other (no wheezes) Abdomen: Normal bowel sounds, Soft Extremities: No clubbing Skin: No breakdown, No significant lesion Labs LABS Laboratory Tests Test 09/22/16 04:55 White Blood Count 7.9x10^3/uL (4.0-11.0) Red Blood Count 3.23x10^6/uL (3.50-5.40) Hemoglobin 9.3g/dL (12.0-15.5) Hematocrit 28.7% (36.0-47.0) Mean Corpuscular Volume 89fL (79-100) Mean Corpuscular Hemoglobin 29pg (25-35) Mean Corpuscular Hemoglobin Concent 33g/dL (31-37) Red Cell Distribution Width 13.2% (11.5-14.5) Platelet Count 228x10^3/uL (140-400) Neutrophils (%) (Auto) 64% (31-73) Lymphocytes (%) (Auto) 15% (24-48) Monocytes (%) (Auto) 16% (0-9) Eosinophils (%) (Auto) 5% (0-3) Basophils (%) (Auto) 0% (0-3) Neutrophils # (Auto) 5.0x10^3uL (1.8-7.7) Lymphocytes # (Auto) 1.2x10^3/uL (1.0-4.8) Monocytes # (Auto) 1.3x10^3/uL (0.0-1.1) Eosinophils # (Auto) 0.4x10^3/uL (0.0-0.7) Basophils # (Auto) 0.0x10^3/uL (0.0-0.2) Sodium Level 135mmol/L (136-145) Potassium Level 4.7mmol/L (3.5-5.1) Chloride Level 103mmol/L (98-107) Carbon Dioxide Level 19mmol/L (21-32) Anion Gap 13 (6-14) Blood Urea Nitrogen 31mg/dL (7-20) Creatinine 1.0mg/dL (0.6-1.0) Estimated GFR (Cockcroft-Gault) 53.3 Glucose Level 89mg/dL (70-99) Calcium Level 9.4mg/dL (8.5-10.1) Review of Systems Review of Systems cant obatin, weak, asleep, Assessment and Plan Assessmemt and Plan Problems Medical Problems: (1) Acute metabolic encephalopathy Status: Acute (2) Acute renal failure Status: Acute (3) Dehydration Status: Acute Problems: Comment Review of Relevant I have reviewed the following items sheridan (where applicable) has been applied. Labs Laboratory Tests Test 09/21/16 04:20 09/22/16 04:55 White Blood Count 8.2x10^3/uL (4.0-11.0) 7.9x10^3/uL (4.0-11.0) Red Blood Count 3.10x10^6/uL (3.50-5.40) 3.23x10^6/uL (3.50-5.40) Hemoglobin 9.1g/dL (12.0-15.5) 9.3g/dL (12.0-15.5) Hematocrit 27.4% (36.0-47.0) 28.7% (36.0-47.0) Mean Corpuscular Volume 88fL (79-100) 89fL (79-100) Mean Corpuscular Hemoglobin 29pg (25-35) 29pg (25-35) Mean Corpuscular Hemoglobin Concent 33g/dL (31-37) 33g/dL (31-37) Red Cell Distribution Width 14.0% (11.5-14.5) 13.2% (11.5-14.5) Platelet Count 202x10^3/uL (140-400) 228x10^3/uL (140-400) Neutrophils (%) (Auto) 64% (31-73) 64% (31-73) Lymphocytes (%) (Auto) 13% (24-48) 15% (24-48) Monocytes (%) (Auto) 18% (0-9) 16% (0-9) Eosinophils (%) (Auto) 5% (0-3) 5% (0-3) Basophils (%) (Auto) 0% (0-3) 0% (0-3) Neutrophils # (Auto) 5.2x10^3uL (1.8-7.7) 5.0x10^3uL (1.8-7.7) Lymphocytes # (Auto) 1.1x10^3/uL (1.0-4.8) 1.2x10^3/uL (1.0-4.8) Monocytes # (Auto) 1.5x10^3/uL (0.0-1.1) 1.3x10^3/uL (0.0-1.1) Eosinophils # (Auto) 0.4x10^3/uL (0.0-0.7) 0.4x10^3/uL (0.0-0.7) Basophils # (Auto) 0.0x10^3/uL (0.0-0.2) 0.0x10^3/uL (0.0-0.2) Sodium Level 135mmol/L (136-145) 135mmol/L (136-145) Potassium Level 4.8mmol/L (3.5-5.1) 4.7mmol/L (3.5-5.1) Chloride Level 104mmol/L (98-107) 103mmol/L (98-107) Carbon Dioxide Level 21mmol/L (21-32) 19mmol/L (21-32) Anion Gap 10 (6-14) 13 (6-14) Blood Urea Nitrogen 30mg/dL (7-20) 31mg/dL (7-20) Creatinine 1.2mg/dL (0.6-1.0) 1.0mg/dL (0.6-1.0) Estimated GFR (Cockcroft-Gault) 43.2 53.3 Glucose Level 94mg/dL (70-99) 89mg/dL (70-99) Calcium Level 9.4mg/dL (8.5-10.1) 9.4mg/dL (8.5-10.1) Laboratory Tests Test 09/22/16 04:55 White Blood Count 7.9x10^3/uL (4.0-11.0) Red Blood Count 3.23x10^6/uL (3.50-5.40) Hemoglobin 9.3g/dL (12.0-15.5) Hematocrit 28.7% (36.0-47.0) Mean Corpuscular Volume 89fL (79-100) Mean Corpuscular Hemoglobin 29pg (25-35) Mean Corpuscular Hemoglobin Concent 33g/dL (31-37) Red Cell Distribution Width 13.2% (11.5-14.5) Platelet Count 228x10^3/uL (140-400) Neutrophils (%) (Auto) 64% (31-73) Lymphocytes (%) (Auto) 15% (24-48) Monocytes (%) (Auto) 16% (0-9) Eosinophils (%) (Auto) 5% (0-3) Basophils (%) (Auto) 0% (0-3) Neutrophils # (Auto) 5.0x10^3uL (1.8-7.7) Lymphocytes # (Auto) 1.2x10^3/uL (1.0-4.8) Monocytes # (Auto) 1.3x10^3/uL (0.0-1.1) Eosinophils # (Auto) 0.4x10^3/uL (0.0-0.7) Basophils # (Auto) 0.0x10^3/uL (0.0-0.2) Sodium Level 135mmol/L (136-145) Potassium Level 4.7mmol/L (3.5-5.1) Chloride Level 103mmol/L (98-107) Carbon Dioxide Level 19mmol/L (21-32) Anion Gap 13 (6-14) Blood Urea Nitrogen 31mg/dL (7-20) Creatinine 1.0mg/dL (0.6-1.0) Estimated GFR (Cockcroft-Gault) 53.3 Glucose Level 89mg/dL (70-99) Calcium Level 9.4mg/dL (8.5-10.1) Microbiology 09/16/16 Blood Culture - Final, Complete NO GROWTH AFTER 5 DAYS Medications Current Medications Sodium Chloride (Iv Sodium Chloride 0.9% 1000ml Bag) 1,000 ml @ 125 mls/hr 1X ONCE IV Last administered on 09/15/16 11:45; Start 09/15/16 at 10:15; Stop 07/20 at 18:14; Status DC Ondansetron HCl 4 mg 4 mg PRN Q8HRS PRN IV NAUSEA/VOMITING; Start 09/15/16 at 15:30; Stop 09/15/16 at 17:12; Status DC Sodium Chloride (Iv Sodium Chloride 0.9% 1000ml Bag) 1,000 ml @ 125 mls/hr Q8H IV Last administered on 09/15/16 15:23; Start 09/15/16 at 15:23; Stop at 15:15; Status DC Acetaminophen (Tylenol) 650 mg PRN Q4HRS PRN PO FEVER; Start 09/15/16 at 15:30 ; Stop 09/15/16 at 17:12; Status DC Acetaminophen (Tylenol) 325 mg PRN Q6HRS PRN PO MILD PAIN / TEMP; Start at 17:15; Stop 09/16/16 at 15:15; Status DC Acetaminophen/ Hydrocodone Bitart (Lortab 5/325) 1 tab PRN Q6HRS PRN PO MODERATE TO SEVERE PAIN Last administered on 09/21/16 03:12; Start 09/15/16 at 17:15 Hydralazine HCl (Apresoline) 10 mg PRN Q4HRS PRN IVP ELEVATED BP, SEE COMMENTS ; Start 09/15/16 at 17:15 Ondansetron HCl (Zofran) 4 mg PRN Q8HRS PRN IV NAUSEA/VOMITING; Start 09/15/16 at 17:15 Albuterol Sulfate 2.5 mg 2.5 mg PRN Q4HRS PRN NEB SHORTNESS OF BREATH; Start at 17:15; Stop 09/16/16 at 15:15; Status DC Sodium Chloride 1,000 ml @ 75 mls/hr 1X ONCE IV ; Start 09/15/16 at 17:15; Stop 09/15/16 at 17:15; Status DC Sodium Chloride (Iv Sodium Chloride 0.9% 1000ml Bag) 1,000 ml @ 75 mls/hr DAILY IV Last administered on 09/15/16 21:35; Start 09/15/16 at 17:15; Stop at 11:31; Status DC Enoxaparin Sodium (Lovenox 30mg Syringe) 30 mg Q24H SQ Last administered on 18:00; Start 09/15/16 at 18:00; Stop 09/21/16 at 10:51; Status DC Alprazolam (Xanax) 0.25 mg BID PO Last administered on 09/17/16 21:00; Start 09/16/16 at 01:15; Stop 09/18/16 at 10:22; Status DC Tramadol HCl (Ultram) 50 mg PRN Q6HRS PRN PO PAIN Last administered on 23:06; Start 09/16/16 at 01:15 Acetaminophen (Tylenol) 650 mg PRN Q6HRS PRN PO MILD PAIN / TEMP; Start at 11:30 Albuterol Sulfate (Ventolin Neb Soln) 2.5 mg PRN Q4HRS PRN NEB SHORTNESS OF BREATH Last administered on 09/22/16 04:31; Start 09/16/16 at 11:30 Amlodipine Besylate (Norvasc) 10 mg DAILY PO Last administered on 09/22/16 09: 17; Start 09/16/16 at 12:30 Aspirin (Ecotrin) 81 mg DAILY PO Last administered on 09/20/16 09:29; Start at 12:30; Stop 09/21/16 at 10:05; Status DC Atenolol (Tenormin) 37.5 mg DAILY PO Last administered on 09/22/16 09:18; Start 09/16/16 at 12:30 Ferrous Sulfate (Feosol) 325 mg DAILY PO Last administered on 09/22/16 09:16; Start 09/16/16 at 12:30; Stop 09/22/16 at 09:46; Status DC Guaifenesin (Mucinex) 600 mg BID PO Last administered on 09/20/16 20:02; Start 09/16/16 at 12:30; Stop 09/22/16 at 09:46; Status DC Hydroxychloroquine Sulfate (Plaquenil) 200 mg DAILY PO Last administered on 09:16; Start 09/16/16 at 12:30; Stop 09/22/16 at 09:46; Status DC Levothyroxine Sodium (Synthroid) 100 mcg DAILY07 PO Last administered on 09:17; Start 09/16/16 at 12:30 Fish Oil (Fish Oil) 1,000 mg BID PO Last administered on 09/21/16 20:39; Start 09/16/16 at 12:30; Stop 09/22/16 at 09:46; Status DC Pilocarpine HCl (Salagen) 5 mg TID PO Last administered on 09/22/16 09:17; Start 09/16/16 at 14:00 Pramipexole Dihydrochloride (miraPEX) 0.25 mg DAILY PO Last administered on 09:28; Start 09/16/16 at 12:30; Stop 09/21/16 at 11:19; Status DC Trimethoprim/ Sulfamethoxazole (Bactrim Ds) 1 tab BID PO Last administered on 10:09; Start 09/16/16 at 12:30; Stop 09/18/16 at 10:58; Status DC Calcium/Vitamin D (Oscal D 500mg/ 200uts) 1 tab DAILY PO Last administered on 10:05; Start 09/16/16 at 12:30; Stop 09/22/16 at 09:46; Status DC Vitamin D (Vitamin D3) 2,000 unit DAILY PO Last administered on 09/22/16 09:17 ; Start 09/16/16 at 12:30; Stop 09/22/16 at 09:46; Status DC Escitalopram Oxalate (Lexapro) 20 mg DAILY PO Last administered on 09/22/16 09 :15; Start 09/16/16 at 12:30 Losartan Potassium (Cozaar) 100 mg DAILY PO Last administered on 09/18/16 10: 11; Start 09/16/16 at 12:30; Stop 09/19/16 at 12:21; Status DC Potassium Chloride 20 meq 20 meq DAILYWBKFT PO Last administered on 09/17/16 10:06; Start 09/16/16 at 12:30; Stop 09/18/16 at 10:19; Status DC Amino Acids/ Glycerin/ Electrolytes (Procalamine) 1,000 ml @ 80 mls/hr [id number] IV Last administered on 09/22/16 09:03; Start 09/16/16 at 12:00 Acetaminophen/ Codeine Phosphate (Tylenol #3) 1 tab PRN Q6HRS PRN PO PAIN MILD Last administered on 09/19/16 22:12; Start 09/17/16 at 02:15 Albuterol/ Ipratropium (Duoneb) 3 ml RTQID NEB Last administered on 09/22/16 07:48; Start 09/18/16 at 20:00 Alprazolam (Xanax) 0.25 mg PRN Q8HRS PRN PO ANXIETY / AGITATION Last administered on 09/21/16 23:06; Start 09/19/16 at 15:00 Aspirin (Children'S Aspirin) 81 mg DAILYWBKFT PO Last administered on 09:16; Start 09/21/16 at 10:30; Stop 09/22/16 at 09:46; Status DC Enoxaparin Sodium (Lovenox 40mg Syringe) 40 mg Q24H SQ Last administered on 18:37; Start 09/21/16 at 18:00 Pramipexole Dihydrochloride (miraPEX) 0.25 mg DAILY PO Last administered on t 09:16; Start 09/21/16 at 20:00 Sodium Chloride (Saline Mist Nasal) 1 jenn PRN Q1HR PRN NS NASAL CONGESTION; Start 09/22/16 at 10:15 Morphine Sulfate 1 mg PRN Q2HR PRN IV PAIN; Start 09/22/16 at 10:15 Lorazepam (Ativan) 1 mg PRN Q4HRS PRN IV ANXIETY / AGITATION; Start 09/22/16 at 10:15 Active Scripts Active Reported Guaifenesin 600 Mg Tablet.er 600 Mg PO BID Bactrim Ds Tablet (Sulfamethoxazole/Trimethoprim) 1 Each Tablet 1 Each PO BID 5 Days Albuterol Sulfate Neb Soln (Albuterol Sulfate) 2.5 Mg/3 Ml Vial.neb 2.5 Mg NEB Q4HRS PRN Acetaminophen 325 Mg Tablet 650 Mg PO PRN Q6HRS PRN Tramadol Hcl 50 Mg Tablet 50 Mg PO Q6H PRN Vitamin E (Vitamin E Acid Succinate) 100 Unit Tablet 100 Unit PO Vitamin D-3 (Cholecalciferol (Vitamin D3)) 2,000 Unit Tablet 2,000 Unit PO DAILY Iron (Ferrous Sulfate) 325 Mg Tablet 325 Mg PO DAILY Aspir 81 (Aspirin) 81 Mg Tablet.dr 81 Mg PO DAILY Pramipexole Dihydrochloride (Pramipexole Di-Hcl) 0.25 Mg Tablet 0.25 Mg PO Fish Oil 1,000 Mg Capsule ([place]-3 Fatty Acids/Fish Oil) 1 Each Capsule 1 Each PO BID Potassium Chloride 20 Meq Tablet.er 20 Meq PO DAILY Plaquenil (Hydroxychloroquine Sulfate) 200 Mg Tablet 200 Mg PO DAILY Pilocarpine Hcl 5 Mg Tablet 5 Mg PO TID Lexapro (Escitalopram Oxalate) 20 Mg Tablet 1 Tab PO DAILY Calcium 500 + D Tablet (Calcium Carbonate/Vitamin D3) 1 Each Tablet 1 Each PO DAILY Levothyroxine Sodium 100 Mcg Tablet 1 Tab PO DAILY Xanax (Alprazolam) 0.25 Mg Tablet 1 Tab PO BID Atenolol 50 Mg Tablet 37.5 Mg PO DAILY TAKE 1 AND 1/2 TABLETS DAILY Losartan Potassium 100 Mg Tablet 100 Mg PO DAILY Norvasc (Amlodipine Besylate) 5 Mg Tablet 10 Mg PO DAILY Vitals/I & O Vital Sign - Last 24 Hours 09/21/16 09/21/16 09/21/16 2/18/17 11:43 11:46 15:22 16:45 Temp 97.9 97.5 97.9 97.5 Pulse 63 66 Resp 19 19 B/P 134/52 128/39 Pulse Ox 97 94 98 O2 Delivery Room Air Room Air Room Air Room Air 09/21/16 09/21/16 09/21/16 09/21/16 19:25 20:05 20:31 23:25 Temp 99.2 98.7 99.2 98.7 Pulse 67 70 Resp 20 20 B/P 136/48 141/55 Pulse Ox 95 95 O2 Delivery Room Air Room Air Room Air Room Air 09/22/16 09/22/16 09/22/16 09/22/16 03:25 04:34 07:33 07:49 Temp 98.7 97.4 98.7 97.4 Pulse 67 71 Resp 20 20 B/P 135/61 141/58 Pulse Ox 94 96 93 96 O2 Delivery Room Air Room Air Room Air Room Air 09/22/16 09/22/16 09/22/16 08:00 09:17 09:18 Pulse 71 71 B/P 141/58 141/58 O2 Delivery Room Air Intake and Output 09/21/16 09/21/16 09/22/16 15:00 23:00 07:00 Intake Total 0 ml 300 ml Balance 0 ml 300 ml CHRISTINE WEBSTER MD Sep 22, 2016 11:14
[2016-09-22 15:00] VITALS: BP 134/55
[2016-09-22] MEDS: ENOXAPARIN 40 MG/0.4 ML DISP.SYRIN. SQ SCH (17:50)
[2016-09-22 19:10] VITALS: BP 133/64
[2016-09-22] MEDS: LORAZEPAM 2 MG/ML VIAL IV PRN (20:33)
[2016-09-22 23:25] VITALS: BP 145/61
[2016-09-23] MEDS: LORAZEPAM 2 MG/ML VIAL IV PRN ×4 (02:46→18:39)
[2016-09-23 03:25] VITALS: BP 144/62
[2016-09-23] MEDS: MORPHINE SULFATE 2 MG/ML DISP.SYRIN. IV PRN ×4 (03:40→18:39)
[2016-09-23 04:57] LABS: BASO % 0 % (0-3); EOS % 4 % (0-3); HEMATOCRIT 28.2 % (36.0-47.0); HEMOGLOBIN 9.4 g/dL (12.0-15.5); LYMPH % 11 % (24-48); MEAN CORPUSCULAR HEMOGLOBIN 29 pg (25-35); MEAN CORPUSCULAR HGB CONC 34 g/dL (31-37); MEAN CORPUSCULAR VOLUME 88 fL (79-100); MONO % 18 % (0-9); NEUT % 67 % (31-73); PLATELET COUNT 254 x10^3/uL (140-400); RED BLOOD COUNT 3.21 x10^6/uL (3.50-5.40); RED CELL DISTRIBUTION WIDTH 13.5 % (11.5-14.5); WHITE BLOOD COUNT 8.8 x10^3/uL (4.0-11.0)
[2016-09-23 05:45] LABS: CALCIUM 9.6 mg/dL (8.5-10.1); GFR 53.3; POTASSIUM 4.7 mmol/L (3.5-5.1)
[2016-09-23 07:00] VITALS: BP 141/61
[2016-09-23] MEDS: LEVOTHYROXINE 100 MCG TABLET PO SCH (07:00)
[2016-09-23] MEDS: IPRATRPIUM/ALBUTEROL 0.5/2.5MG 3 ML NEBU. NEB SCH ×3 (07:55→15:02)
[2016-09-23] MEDS: PRAMIPEXOLE 0.25 MG TABLET. PO SCH (08:11)
[2016-09-23] MEDS: ESCITALOPRAM 10 MG TABLET. PO SCH (08:11)
[2016-09-23] MEDS: PILOCARPINE 5 MG TABLET. PO SCH ×2 (08:12→13:27)
[2016-09-23] MEDS: ATENOLOL 25 MG TABLET PO SCH (08:12)
[2016-09-23] MEDS: AMLODIPINE BESYLATE 10 MG TABLET PO SCH (08:12)
[2016-09-23] MEDS: AA 3%/ELECTROLYTE-TPN SOLN/GLY 1,000 ML IV SCH (08:16)
[2016-09-23 11:00] VITALS: BP 133/61
--- NOTE | 2016-09-23 12:26 | PDOC ---
PROGRESS NOTES Chief Complaint Chief Complaint Acute metabolic encephalopathy on dementia, w. delirium 1. Metabolic Encephalopathy, 2. 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 Leukocytosis, 4. AMS 5. Acute on chronic kidney disease, vasomotor, now hyperkalemia, 6. Prior history of dementia, w. delirium 7. Parkinson's disease, 8. Hypothyroidism 9. Depression 10. Mod malnutrition, 11. DNR 12. HOSPICE CANDIDATE History of Present Illness History of Present Illness Same remains, weak, ion and off confusion MInimal PO intake Living will says DNR and no TF, no PEG, not even IVF Difficulty administering some big pills this AM Family at bedside creatinine now stable at 1,2 (best) PLAN: Fam mtg later Dw dtrs at bedside Stop some pills of no use anymore since hospice is being considered (ie MVI, plaquenil, mucinex oscal - too big pills, etc) DNR Supportive meds COnt prolamanine for now (ate only 14 bites) Dw family Vitals Vitals Vital Signs Date Time Temp Pulse Resp B/P Pulse Ox O2 Delivery O2 Flow Rate FiO2 09/23/16 12:12 96 Room Air 09/23/16 11:28 20 2.0 09/23/16 11:00 99.9 69 133/61 99.9 Physical Exam Physical Exam Adult diaper in place; Left knee has bruise present, not oriented General: Cooperative Heart: Regular rate, Normal S1, Normal S2 Lungs: Clear, Other (no wheezes) Abdomen: Normal bowel sounds, Soft Extremities: No clubbing Skin: No breakdown, No significant lesion Labs LABS Laboratory Tests Test 09/23/16 03:40 White Blood Count 8.8x10^3/uL (4.0-11.0) Red Blood Count 3.21x10^6/uL (3.50-5.40) Hemoglobin 9.4g/dL (12.0-15.5) Hematocrit 28.2% (36.0-47.0) Mean Corpuscular Volume 88fL (79-100) Mean Corpuscular Hemoglobin 29pg (25-35) Mean Corpuscular Hemoglobin Concent 34g/dL (31-37) Red Cell Distribution Width 13.5% (11.5-14.5) Platelet Count 254x10^3/uL (140-400) Neutrophils (%) (Auto) 67% (31-73) Lymphocytes (%) (Auto) 11% (24-48) Monocytes (%) (Auto) 18% (0-9) Eosinophils (%) (Auto) 4% (0-3) Basophils (%) (Auto) 0% (0-3) Neutrophils # (Auto) 5.9x10^3uL (1.8-7.7) Lymphocytes # (Auto) 1.0x10^3/uL (1.0-4.8) Monocytes # (Auto) 1.6x10^3/uL (0.0-1.1) Eosinophils # (Auto) 0.3x10^3/uL (0.0-0.7) Basophils # (Auto) 0.0x10^3/uL (0.0-0.2) Sodium Level 136mmol/L (136-145) Potassium Level 4.7mmol/L (3.5-5.1) Chloride Level 103mmol/L (98-107) Carbon Dioxide Level 20mmol/L (21-32) Anion Gap 13 (6-14) Blood Urea Nitrogen 30mg/dL (7-20) Creatinine 1.0mg/dL (0.6-1.0) Estimated GFR (Cockcroft-Gault) 53.3 Glucose Level 92mg/dL (70-99) Calcium Level 9.6mg/dL (8.5-10.1) Assessment and Plan Assessmemt and Plan Problems Medical Problems: (1) Acute metabolic encephalopathy Status: Acute (2) Acute renal failure Status: Acute (3) Dehydration Status: Acute Problems: Comment Review of Relevant I have reviewed the following items sheridan (where applicable) has been applied. Labs Laboratory Tests Test 09/22/16 04:55 09/23/16 03:40 White Blood Count 7.9x10^3/uL (4.0-11.0) 8.8x10^3/uL (4.0-11.0) Red Blood Count 3.23x10^6/uL (3.50-5.40) 3.21x10^6/uL (3.50-5.40) Hemoglobin 9.3g/dL (12.0-15.5) 9.4g/dL (12.0-15.5) Hematocrit 28.7% (36.0-47.0) 28.2% (36.0-47.0) Mean Corpuscular Volume 89fL (79-100) 88fL (79-100) Mean Corpuscular Hemoglobin 29pg (25-35) 29pg (25-35) Mean Corpuscular Hemoglobin Concent 33g/dL (31-37) 34g/dL (31-37) Red Cell Distribution Width 13.2% (11.5-14.5) 13.5% (11.5-14.5) Platelet Count 228x10^3/uL (140-400) 254x10^3/uL (140-400) Neutrophils (%) (Auto) 64% (31-73) 67% (31-73) Lymphocytes (%) (Auto) 15% (24-48) 11% (24-48) Monocytes (%) (Auto) 16% (0-9) 18% (0-9) Eosinophils (%) (Auto) 5% (0-3) 4% (0-3) Basophils (%) (Auto) 0% (0-3) 0% (0-3) Neutrophils # (Auto) 5.0x10^3uL (1.8-7.7) 5.9x10^3uL (1.8-7.7) Lymphocytes # (Auto) 1.2x10^3/uL (1.0-4.8) 1.0x10^3/uL (1.0-4.8) Monocytes # (Auto) 1.3x10^3/uL (0.0-1.1) 1.6x10^3/uL (0.0-1.1) Eosinophils # (Auto) 0.4x10^3/uL (0.0-0.7) 0.3x10^3/uL (0.0-0.7) Basophils # (Auto) 0.0x10^3/uL (0.0-0.2) 0.0x10^3/uL (0.0-0.2) Sodium Level 135mmol/L (136-145) 136mmol/L (136-145) Potassium Level 4.7mmol/L (3.5-5.1) 4.7mmol/L (3.5-5.1) Chloride Level 103mmol/L (98-107) 103mmol/L (98-107) Carbon Dioxide Level 19mmol/L (21-32) 20mmol/L (21-32) Anion Gap 13 (6-14) 13 (6-14) Blood Urea Nitrogen 31mg/dL (7-20) 30mg/dL (7-20) Creatinine 1.0mg/dL (0.6-1.0) 1.0mg/dL (0.6-1.0) Estimated GFR (Cockcroft-Gault) 53.3 53.3 Glucose Level 89mg/dL (70-99) 92mg/dL (70-99) Calcium Level 9.4mg/dL (8.5-10.1) 9.6mg/dL (8.5-10.1) Laboratory Tests Test 09/23/16 03:40 White Blood Count 8.8x10^3/uL (4.0-11.0) Red Blood Count 3.21x10^6/uL (3.50-5.40) Hemoglobin 9.4g/dL (12.0-15.5) Hematocrit 28.2% (36.0-47.0) Mean Corpuscular Volume 88fL (79-100) Mean Corpuscular Hemoglobin 29pg (25-35) Mean Corpuscular Hemoglobin Concent 34g/dL (31-37) Red Cell Distribution Width 13.5% (11.5-14.5) Platelet Count 254x10^3/uL (140-400) Neutrophils (%) (Auto) 67% (31-73) Lymphocytes (%) (Auto) 11% (24-48) Monocytes (%) (Auto) 18% (0-9) Eosinophils (%) (Auto) 4% (0-3) Basophils (%) (Auto) 0% (0-3) Neutrophils # (Auto) 5.9x10^3uL (1.8-7.7) Lymphocytes # (Auto) 1.0x10^3/uL (1.0-4.8) Monocytes # (Auto) 1.6x10^3/uL (0.0-1.1) Eosinophils # (Auto) 0.3x10^3/uL (0.0-0.7) Basophils # (Auto) 0.0x10^3/uL (0.0-0.2) Sodium Level 136mmol/L (136-145) Potassium Level 4.7mmol/L (3.5-5.1) Chloride Level 103mmol/L (98-107) Carbon Dioxide Level 20mmol/L (21-32) Anion Gap 13 (6-14) Blood Urea Nitrogen 30mg/dL (7-20) Creatinine 1.0mg/dL (0.6-1.0) Estimated GFR (Cockcroft-Gault) 53.3 Glucose Level 92mg/dL (70-99) Calcium Level 9.6mg/dL (8.5-10.1) Microbiology 09/16/16 Blood Culture - Final, Complete NO GROWTH AFTER 5 DAYS Medications Current Medications Sodium Chloride (Iv Sodium Chloride 0.9% 1000ml Bag) 1,000 ml @ 125 mls/hr 1X ONCE IV Last administered on 09/15/16 11:45; Start 09/15/16 at 10:15; Stop 07/20 at 18:14; Status DC Ondansetron HCl 4 mg 4 mg PRN Q8HRS PRN IV NAUSEA/VOMITING; Start 09/15/16 at 15:30; Stop 09/15/16 at 17:12; Status DC Sodium Chloride (Iv Sodium Chloride 0.9% 1000ml Bag) 1,000 ml @ 125 mls/hr Q8H IV Last administered on 09/15/16 15:23; Start 09/15/16 at 15:23; Stop at 15:15; Status DC Acetaminophen (Tylenol) 650 mg PRN Q4HRS PRN PO FEVER; Start 09/15/16 at 15:30 ; Stop 09/15/16 at 17:12; Status DC Acetaminophen (Tylenol) 325 mg PRN Q6HRS PRN PO MILD PAIN / TEMP; Start at 17:15; Stop 09/16/16 at 15:15; Status DC Acetaminophen/ Hydrocodone Bitart (Lortab 5/325) 1 tab PRN Q6HRS PRN PO MODERATE TO SEVERE PAIN Last administered on 09/21/16 03:12; Start 09/15/16 at 17:15 Hydralazine HCl (Apresoline) 10 mg PRN Q4HRS PRN IVP ELEVATED BP, SEE COMMENTS ; Start 09/15/16 at 17:15 Ondansetron HCl (Zofran) 4 mg PRN Q8HRS PRN IV NAUSEA/VOMITING; Start 09/15/16 at 17:15 Albuterol Sulfate 2.5 mg 2.5 mg PRN Q4HRS PRN NEB SHORTNESS OF BREATH; Start at 17:15; Stop 09/16/16 at 15:15; Status DC Sodium Chloride 1,000 ml @ 75 mls/hr 1X ONCE IV ; Start 09/15/16 at 17:15; Stop 09/15/16 at 17:15; Status DC Sodium Chloride (Iv Sodium Chloride 0.9% 1000ml Bag) 1,000 ml @ 75 mls/hr DAILY IV Last administered on 09/15/16 21:35; Start 09/15/16 at 17:15; Stop at 11:31; Status DC Enoxaparin Sodium (Lovenox 30mg Syringe) 30 mg Q24H SQ Last administered on 18:00; Start 09/15/16 at 18:00; Stop 09/21/16 at 10:51; Status DC Alprazolam (Xanax) 0.25 mg BID PO Last administered on 09/17/16 21:00; Start 09/16/16 at 01:15; Stop 09/18/16 at 10:22; Status DC Tramadol HCl (Ultram) 50 mg PRN Q6HRS PRN PO PAIN Last administered on 23:06; Start 09/16/16 at 01:15 Acetaminophen (Tylenol) 650 mg PRN Q6HRS PRN PO MILD PAIN / TEMP; Start at 11:30 Albuterol Sulfate (Ventolin Neb Soln) 2.5 mg PRN Q4HRS PRN NEB SHORTNESS OF BREATH Last administered on 09/22/16 04:31; Start 09/16/16 at 11:30 Amlodipine Besylate (Norvasc) 10 mg DAILY PO Last administered on 09/22/16 09: 17; Start 09/16/16 at 12:30 Aspirin (Ecotrin) 81 mg DAILY PO Last administered on 09/20/16 09:29; Start at 12:30; Stop 09/21/16 at 10:05; Status DC Atenolol (Tenormin) 37.5 mg DAILY PO Last administered on 09/22/16 09:18; Start 09/16/16 at 12:30 Ferrous Sulfate (Feosol) 325 mg DAILY PO Last administered on 09/22/16 09:16; Start 09/16/16 at 12:30; Stop 09/22/16 at 09:46; Status DC Guaifenesin (Mucinex) 600 mg BID PO Last administered on 09/20/16 20:02; Start 09/16/16 at 12:30; Stop 09/22/16 at 09:46; Status DC Hydroxychloroquine Sulfate (Plaquenil) 200 mg DAILY PO Last administered on 09:16; Start 09/16/16 at 12:30; Stop 09/22/16 at 09:46; Status DC Levothyroxine Sodium (Synthroid) 100 mcg DAILY07 PO Last administered on 09:17; Start 09/16/16 at 12:30 Fish Oil (Fish Oil) 1,000 mg BID PO Last administered on 09/21/16 20:39; Start 09/16/16 at 12:30; Stop 09/22/16 at 09:46; Status DC Pilocarpine HCl (Salagen) 5 mg TID PO Last administered on 09/22/16 14:00; Start 09/16/16 at 14:00 Pramipexole Dihydrochloride (miraPEX) 0.25 mg DAILY PO Last administered on 09:28; Start 09/16/16 at 12:30; Stop 09/21/16 at 11:19; Status DC Trimethoprim/ Sulfamethoxazole (Bactrim Ds) 1 tab BID PO Last administered on 10:09; Start 09/16/16 at 12:30; Stop 09/18/16 at 10:58; Status DC Calcium/Vitamin D (Oscal D 500mg/ 200uts) 1 tab DAILY PO Last administered on 10:05; Start 09/16/16 at 12:30; Stop 09/22/16 at 09:46; Status DC Vitamin D (Vitamin D3) 2,000 unit DAILY PO Last administered on 09/22/16 09:17 ; Start 09/16/16 at 12:30; Stop 09/22/16 at 09:46; Status DC Escitalopram Oxalate (Lexapro) 20 mg DAILY PO Last administered on 09/22/16 09 :15; Start 09/16/16 at 12:30 Losartan Potassium (Cozaar) 100 mg DAILY PO Last administered on 09/18/16 10: 11; Start 09/16/16 at 12:30; Stop 09/19/16 at 12:21; Status DC Potassium Chloride 20 meq 20 meq DAILYWBKFT PO Last administered on 09/17/16 10:06; Start 09/16/16 at 12:30; Stop 09/18/16 at 10:19; Status DC Amino Acids/ Glycerin/ Electrolytes (Procalamine) 1,000 ml @ 80 mls/hr [id number] IV Last administered on 09/23/16 08:16; Start 09/16/16 at 12:00 Acetaminophen/ Codeine Phosphate (Tylenol #3) 1 tab PRN Q6HRS PRN PO PAIN MILD Last administered on 09/19/16 22:12; Start 09/17/16 at 02:15 Albuterol/ Ipratropium (Duoneb) 3 ml RTQID NEB Last administered on 09/23/16 12:12; Start 09/18/16 at 20:00 Alprazolam (Xanax) 0.25 mg PRN Q8HRS PRN PO ANXIETY / AGITATION Last administered on 09/21/16 23:06; Start 09/19/16 at 15:00 Aspirin (Children'S Aspirin) 81 mg DAILYWBKFT PO Last administered on 09:16; Start 09/21/16 at 10:30; Stop 09/22/16 at 09:46; Status DC Enoxaparin Sodium (Lovenox 40mg Syringe) 40 mg Q24H SQ Last administered on 17:50; Start 09/21/16 at 18:00 Pramipexole Dihydrochloride (miraPEX) 0.25 mg DAILY PO Last administered on 09:16; Start 09/21/16 at 20:00 Sodium Chloride (Saline Mist Nasal) 1 jenn PRN Q1HR PRN NS NASAL CONGESTION; Start 09/22/16 at 10:15 Morphine Sulfate 1 mg PRN Q2HR PRN IV PAIN Last administered on 09/23/16 11:28 ; Start 09/22/16 at 10:15 Lorazepam (Ativan) 1 mg PRN Q4HRS PRN IV ANXIETY / AGITATION Last administered on 09/23/16 11:28; Start 09/22/16 at 10:15 Active Scripts Active Reported Guaifenesin 600 Mg Tablet.er 600 Mg PO BID Bactrim Ds Tablet (Sulfamethoxazole/Trimethoprim) 1 Each Tablet 1 Each PO BID 5 Days Albuterol Sulfate Neb Soln (Albuterol Sulfate) 2.5 Mg/3 Ml Vial.neb 2.5 Mg NEB Q4HRS PRN Acetaminophen 325 Mg Tablet 650 Mg PO PRN Q6HRS PRN Tramadol Hcl 50 Mg Tablet 50 Mg PO Q6H PRN Vitamin E (Vitamin E Acid Succinate) 100 Unit Tablet 100 Unit PO Vitamin D-3 (Cholecalciferol (Vitamin D3)) 2,000 Unit Tablet 2,000 Unit PO DAILY Iron (Ferrous Sulfate) 325 Mg Tablet 325 Mg PO DAILY Aspir 81 (Aspirin) 81 Mg Tablet.dr 81 Mg PO DAILY Pramipexole Dihydrochloride (Pramipexole Di-Hcl) 0.25 Mg Tablet 0.25 Mg PO Fish Oil 1,000 Mg Capsule ([place]-3 Fatty Acids/Fish Oil) 1 Each Capsule 1 Each PO BID Potassium Chloride 20 Meq Tablet.er 20 Meq PO DAILY Plaquenil (Hydroxychloroquine Sulfate) 200 Mg Tablet 200 Mg PO DAILY Pilocarpine Hcl 5 Mg Tablet 5 Mg PO TID Lexapro (Escitalopram Oxalate) 20 Mg Tablet 1 Tab PO DAILY Calcium 500 + D Tablet (Calcium Carbonate/Vitamin D3) 1 Each Tablet 1 Each PO DAILY Levothyroxine Sodium 100 Mcg Tablet 1 Tab PO DAILY Xanax (Alprazolam) 0.25 Mg Tablet 1 Tab PO BID Atenolol 50 Mg Tablet 37.5 Mg PO DAILY TAKE 1 AND 1/2 TABLETS DAILY Losartan Potassium 100 Mg Tablet 100 Mg PO DAILY Norvasc (Amlodipine Besylate) 5 Mg Tablet 10 Mg PO DAILY Vitals/I & O Vital Sign - Last 24 Hours 09/22/16 09/22/16 09/22/16 09/22/16 15:00 15:12 19:10 19:28 Temp 97.9 98.2 97.9 98.2 Pulse 78 71 Resp 20 20 B/P 134/55 133/64 Pulse Ox 93 92 95 95 O2 Delivery Room Air Room Air Room Air Room Air 09/22/16 09/22/16 09/23/16 09/23/16 20:05 23:25 03:25 07:00 Temp 98.7 98.8 98.4 98.7 98.8 98.4 Pulse 71 72 70 Resp 20 20 20 B/P 145/61 144/62 141/61 Pulse Ox 96 95 95 O2 Delivery Room Air Room Air Room Air Room Air 09/23/16 09/23/16 09/23/16 09/23/16 07:55 08:00 08:12 08:12 Pulse 70 70 B/P 141/61 141/61 Pulse Ox 95 O2 Delivery Room Air Room Air 09/23/16 09/23/16 09/23/16 11:00 11:28 12:12 Temp 99.9 99.9 Pulse 69 Resp 20 20 B/P 133/61 Pulse Ox 96 96 96 O2 Delivery Room Air Room Air Room Air O2 Flow Rate 2.0 Intake and Output 09/22/16 09/22/16 09/23/16 15:00 23:00 07:00 Intake Total 200 ml Balance 200 ml CHRISTINE WEBSTER MD Sep 23, 2016 12:25
--- NOTE | 2016-09-23 13:48 | PDOC2 ---
PALLIATIVE CARE Palliative Care Note Palliative Care Patient not responding to verbal stimuli Met with family: sons Ming and Zeus; daughters Claudia, Ramon. Reviewed medical condition. They have spoke with physicians and are aware of her decline They would like to return to [facility] with [facility]. They have spoken with [facility] and they would like her to return. Outside the Hospital form completed. 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 enjoyed reading and being with family. Angie: important to her--always involved in [employer] activities. Plan: Return to [facility] with Hospice DNR/DNI form completed DME: Hospital Bed. SUZE PHILLIPS Sep 23, 2016 13:48
--- NOTE | 2016-09-23 14:45 | PDOC3 ---
Discharge Summary Visit Information Date of Admission: Sep 15, 2016 Date of Discharge: Sep 23, 2016 Admitting Diagnosis Comment: 1. Metabolic Encephalopathy, 2. 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 Leukocytosis, 4. AMS 5. Acute on chronic kidney disease, vasomotor, now hyperkalemia, 6. Prior history of dementia, w. delirium 7. Parkinson's disease, 8. Hypothyroidism 9. Depression 10. Mod malnutrition, 11. DNR 12. HOSPICE CANDIDATE Final Diagnosis Problems Medical Problems: (1) Acute metabolic encephalopathy Status: Acute (2) Acute renal failure Status: Acute (3) Dehydration Status: Acute (4) Respiratory failure, unspecified with hypoxia Status: Acute Brief Hospital Course Allergies Allergies Coded Allergies Type Severity Reaction Last Updated Verified naproxen Allergy Intermediate 11/02/14 Yes lisinopril Allergy Mild COUGH 01/10/15 Yes I S O L A T I O N *CONTACT* Allergy Unknown 09/17/16 Yes donepezil Adverse Reaction Mild 08/16/16 Yes Vital Signs Vital Signs Date Time Temp Pulse Resp B/P Pulse Ox O2 Delivery O2 Flow Rate FiO2 09/23/16 12:36 18 96 Room Air 2.0 09/23/16 11:00 99.9 69 133/61 99.9 Lab Results Laboratory Tests Test 09/22/16 04:55 09/23/16 03:40 White Blood Count 7.9x10^3/uL (4.0-11.0) 8.8x10^3/uL (4.0-11.0) Red Blood Count 3.23x10^6/uL (3.50-5.40) 3.21x10^6/uL (3.50-5.40) Hemoglobin 9.3g/dL (12.0-15.5) 9.4g/dL (12.0-15.5) Hematocrit 28.7% (36.0-47.0) 28.2% (36.0-47.0) Mean Corpuscular Volume 89fL (79-100) 88fL (79-100) Mean Corpuscular Hemoglobin 29pg (25-35) 29pg (25-35) Mean Corpuscular Hemoglobin Concent 33g/dL (31-37) 34g/dL (31-37) Red Cell Distribution Width 13.2% (11.5-14.5) 13.5% (11.5-14.5) Platelet Count 228x10^3/uL (140-400) 254x10^3/uL (140-400) Neutrophils (%) (Auto) 64% (31-73) 67% (31-73) Lymphocytes (%) (Auto) 15% (24-48) 11% (24-48) Monocytes (%) (Auto) 16% (0-9) 18% (0-9) Eosinophils (%) (Auto) 5% (0-3) 4% (0-3) Basophils (%) (Auto) 0% (0-3) 0% (0-3) Neutrophils # (Auto) 5.0x10^3uL (1.8-7.7) 5.9x10^3uL (1.8-7.7) Lymphocytes # (Auto) 1.2x10^3/uL (1.0-4.8) 1.0x10^3/uL (1.0-4.8) Monocytes # (Auto) 1.3x10^3/uL (0.0-1.1) 1.6x10^3/uL (0.0-1.1) Eosinophils # (Auto) 0.4x10^3/uL (0.0-0.7) 0.3x10^3/uL (0.0-0.7) Basophils # (Auto) 0.0x10^3/uL (0.0-0.2) 0.0x10^3/uL (0.0-0.2) Sodium Level 135mmol/L (136-145) 136mmol/L (136-145) Potassium Level 4.7mmol/L (3.5-5.1) 4.7mmol/L (3.5-5.1) Chloride Level 103mmol/L (98-107) 103mmol/L (98-107) Carbon Dioxide Level 19mmol/L (21-32) 20mmol/L (21-32) Anion Gap 13 (6-14) 13 (6-14) Blood Urea Nitrogen 31mg/dL (7-20) 30mg/dL (7-20) Creatinine 1.0mg/dL (0.6-1.0) 1.0mg/dL (0.6-1.0) Estimated GFR (Cockcroft-Gault) 53.3 53.3 Glucose Level 89mg/dL (70-99) 92mg/dL (70-99) Calcium Level 9.4mg/dL (8.5-10.1) 9.6mg/dL (8.5-10.1) Laboratory Tests Test 09/23/16 03:40 White Blood Count 8.8x10^3/uL (4.0-11.0) Red Blood Count 3.21x10^6/uL (3.50-5.40) Hemoglobin 9.4g/dL (12.0-15.5) Hematocrit 28.2% (36.0-47.0) Mean Corpuscular Volume 88fL (79-100) Mean Corpuscular Hemoglobin 29pg (25-35) Mean Corpuscular Hemoglobin Concent 34g/dL (31-37) Red Cell Distribution Width 13.5% (11.5-14.5) Platelet Count 254x10^3/uL (140-400) Neutrophils (%) (Auto) 67% (31-73) Lymphocytes (%) (Auto) 11% (24-48) Monocytes (%) (Auto) 18% (0-9) Eosinophils (%) (Auto) 4% (0-3) Basophils (%) (Auto) 0% (0-3) Neutrophils # (Auto) 5.9x10^3uL (1.8-7.7) Lymphocytes # (Auto) 1.0x10^3/uL (1.0-4.8) Monocytes # (Auto) 1.6x10^3/uL (0.0-1.1) Eosinophils # (Auto) 0.3x10^3/uL (0.0-0.7) Basophils # (Auto) 0.0x10^3/uL (0.0-0.2) Sodium Level 136mmol/L (136-145) Potassium Level 4.7mmol/L (3.5-5.1) Chloride Level 103mmol/L (98-107) Carbon Dioxide Level 20mmol/L (21-32) Anion Gap 13 (6-14) Blood Urea Nitrogen 30mg/dL (7-20) Creatinine 1.0mg/dL (0.6-1.0) Estimated GFR (Cockcroft-Gault) 53.3 Glucose Level 92mg/dL (70-99) Calcium Level 9.6mg/dL (8.5-10.1) Brief Hospital Course Ms. Gonzalez is a 80 old female who camne in with DANIELLE, DANIELLE better with IVF but the rest of rosendo QOL, ie feeding ,w eakness etc, Pt poor prognosis hospcie candidate, PAlliative met, family agreed for DNR and hospcie, pt already had a living will does notw ant any IVF or TF if it comes to that point , pls refer to my note earlier today dc 31 mins Dw SW and palliative Discharge Information Condition at Discharge: Stable Disposition/Orders: Other (snu on hospice) Scheduled Alprazolam (Xanax) 1 TAB PO BID (Reported) Amlodipine Besylate (Norvasc) 10 MG PO DAILY (Reported) Aspirin (Aspir 81) 81 MG PO DAILY (Reported) Atenolol (Atenolol) 37.5 MG PO DAILY (Reported) Calcium Carbonate/Vitamin D3 (Calcium 500 + D Tablet) 1 EACH PO DAILY (Reported ) Cholecalciferol (Vitamin D3) (Vitamin D-3) 2,000 UNIT PO DAILY (Reported) Escitalopram Oxalate (Lexapro) 1 TAB PO DAILY (Reported) Ferrous Sulfate (Iron) 325 MG PO DAILY (Reported) Guaifenesin (Guaifenesin) 600 MG PO BID (Reported) Hydroxychloroquine Sulfate (Plaquenil) 200 MG PO DAILY (Reported) Levothyroxine Sodium (Levothyroxine Sodium) 1 TAB PO DAILY (Reported) Losartan Potassium (Losartan Potassium) 100 MG PO DAILY (Reported) [place]-3 Fatty Acids/Fish Oil (Fish Oil 1,000 Mg Capsule) 1 EACH PO BID (Reported ) Pilocarpine Hcl (Pilocarpine Hcl) 5 MG PO TID (Reported) Potassium Chloride (Potassium Chloride) 20 MEQ PO DAILY (Reported) Sulfamethoxazole/Trimethoprim (Bactrim Ds Tablet) 1 EACH PO BID (Reported) Scheduled PRN Acetaminophen (Acetaminophen) 650 MG PO PRN Q6HRS PRN PRN MILD PAIN / TEMP ( Reported) Albuterol Sulfate (Albuterol Sulfate Neb Soln) 2.5 MG NEB Q4HRS PRN PRN SHORTNESS OF BREATH (Reported) Tramadol Hcl (Tramadol Hcl) 50 MG PO Q6H PRN PRN PAIN (Reported) Miscellaneous Medications Pramipexole Di-Hcl (Pramipexole Dihydrochloride) 0.25 MG PO (Reported) Vitamin E Acid Succinate (Vitamin E) 100 UNIT PO (Reported) CHRISTINE WEBSTER MD Sep 23, 2016 14:45
[2016-09-23 15:00] VITALS: BP 136/53
--- NOTE | 2016-09-23 16:25 | PDOC ---
PROGRESS NOTES Assessment Assessment IMPRESSION: Metabolic encephalopathy. Leukocytosis. Dementia. PD syndrome. CHF HTN Hypothyroidism Dementia Cancer. Other medical problems. RECOMMENDATIONS/PLAN: Palliative care team consulted and palliative care discussed. PAST MEDICAL AND SURGICAL HISTORY: Please see H&P ALLERGY: Unknown MEDICATIONS: Refer to MAR REVIEW OF SYSTEMS: Constitutional: No cachexia. Head: No traumatic brain or head injury. Skin: No edema, or rash. Ear: No infection, tinnitus. Eyes: No vision loss, or diplopia. Nose: No bleeding or purulent discharges. Hearing: Hearing loss. Neck: No injury. Cardiac: CHF, HTN Pulmonary: No COPD. GI: No GI Ulcer, GI bleeding Urinary/genital: UTI. Endocrine: [id number]. Skeletomuscular: generalized weakness. Neurological: see HP. Psychiatric: Denies drug use/abuse. Otherwise, not -dxmum review of systems. PHYSICAL EXAMINATION: General appearance in subacute distress. HEENT: Normocephalic and nontraumatic. Eyes, nose, ears, and throat are unremarkable. Hearing decrease. Neck is supple. No lymphadenopathy. No bruits are heard over the carotid artery. No Crepitus. Cardiovascular: S1, S2, regular rate and rhythm. Pulmonary: decreased to auscultation bilaterally. Abdomen: Bowel sounds are positive. . Extremities: No rash, lesions, or edema. No restriction of range of motion NEUROLOGICAL EXAMINATION: decreased response. Not oriented to time, place and person. PERRL. EOMI not elicited. CN: no acute focal findings. Muscle tone: fluctuated Muscle strength: decreased movements. DTR: 1-2 Plantar reflex: Neutral response bilaterally Gait: Unable to walk. Sensory exam: Decreased response to stimuli.. Not able to access cerebellar signs due to not follow commands.. Objective Objective Vital Signs Date Time Temp Pulse Resp B/P Pulse Ox O2 Delivery O2 Flow Rate FiO2 09/23/16 15:46 22 96 Room Air 2.0 09/23/16 11:00 99.9 69 133/61 99.9 Intake and Output 09/23/16 07:00 Intake Total 200 ml Balance 200 ml Intake Oral 200 ml # Voids 8 Vitals Signs Vitals VS - Last 72 Hours, by Label Date Time Temp Pulse Resp B/P Pulse Ox O2 Delivery O2 Flow Rate FiO2 09/23/16 15:46 22 96 Room Air 2.0 09/23/16 15:03 Room Air 09/23/16 12:36 18 96 Room Air 2.0 09/23/16 12:12 96 Room Air 09/23/16 11:28 20 96 Room Air 2.0 09/23/16 11:00 99.9 69 20 133/61 96 Room Air 99.9 09/23/16 08:12 70 141/61 09/23/16 08:12 70 141/61 09/23/16 08:00 Room Air 09/23/16 07:55 95 Room Air 09/23/16 07:00 98.4 70 20 141/61 95 Room Air 98.4 09/23/16 03:25 98.8 72 20 144/62 95 Room Air 98.8 09/22/16 23:25 98.7 71 20 145/61 96 Room Air 98.7 09/22/16 20:05 Room Air 09/22/16 19:28 95 Room Air 09/22/16 19:10 98.2 71 20 133/64 95 Room Air 98.2 09/22/16 15:12 92 Room Air 09/22/16 15:00 97.9 78 20 134/55 93 Room Air 97.9 09/22/16 11:22 100 Room Air 09/22/16 11:00 97.9 62 20 119/40 94 Room Air 97.9 09/22/16 09:18 71 141/58 09/22/16 09:17 71 141/58 09/22/16 08:00 Room Air 09/22/16 07:49 96 Room Air 09/22/16 07:33 97.4 71 20 141/58 93 Room Air 97.4 Laboratory Laboratory Laboratory Tests Test 09/23/16 03:40 White Blood Count 8.8x10^3/uL (4.0-11.0) Red Blood Count 3.21x10^6/uL (3.50-5.40) Hemoglobin 9.4g/dL (12.0-15.5) Hematocrit 28.2% (36.0-47.0) Mean Corpuscular Volume 88fL (79-100) Mean Corpuscular Hemoglobin 29pg (25-35) Mean Corpuscular Hemoglobin Concent 34g/dL (31-37) Red Cell Distribution Width 13.5% (11.5-14.5) Platelet Count 254x10^3/uL (140-400) Neutrophils (%) (Auto) 67% (31-73) Lymphocytes (%) (Auto) 11% (24-48) Monocytes (%) (Auto) 18% (0-9) Eosinophils (%) (Auto) 4% (0-3) Basophils (%) (Auto) 0% (0-3) Neutrophils # (Auto) 5.9x10^3uL (1.8-7.7) Lymphocytes # (Auto) 1.0x10^3/uL (1.0-4.8) Monocytes # (Auto) 1.6x10^3/uL (0.0-1.1) Eosinophils # (Auto) 0.3x10^3/uL (0.0-0.7) Basophils # (Auto) 0.0x10^3/uL (0.0-0.2) Sodium Level 136mmol/L (136-145) Potassium Level 4.7mmol/L (3.5-5.1) Chloride Level 103mmol/L (98-107) Carbon Dioxide Level 20mmol/L (21-32) Anion Gap 13 (6-14) Blood Urea Nitrogen 30mg/dL (7-20) Creatinine 1.0mg/dL (0.6-1.0) Estimated GFR (Cockcroft-Gault) 53.3 Glucose Level 92mg/dL (70-99) Calcium Level 9.6mg/dL (8.5-10.1) Microbiology 09/16/16 Blood Culture - Final, Complete NO GROWTH AFTER 5 DAYS Medication Medications Current Medications Lorazepam (Ativan) 2 mg PRN Q4HRS PRN IV ANXIETY / AGITATION Last administered on 09/23/16 15:46; Start 09/23/16 at 12:45 Morphine Sulfate 2 mg PRN Q2HR PRN IV PAIN Last administered on 09/23/16 15:46 ; Start 09/23/16 at 12:45 Comment Review of Relevant I have reviewed the following items sheridan (where applicable) has been applied. ED CASTREJON MD Sep 23, 2016 16:25
[2016-09-23] MEDS: ENOXAPARIN 40 MG/0.4 ML DISP.SYRIN. SQ SCH (17:33)
== END 2016-09-23 18:56 | disposition hospice, home (50) | DRG 682 ==
LOC: ER 09:39 → ED HOLD 10:59 → 6 SOUTH 16:45
PROVIDERS: ADMIT Internal Medicine; ATTEND Internal Medicine
DX: N17.0 Acute kidney failure with tubular necrosis (principal); G93.41 Metabolic encephalopathy; J96.91 Respiratory failure, unspecified with hypoxia; E44.0 Moderate protein-calorie malnutrition; I13.0 Hypertensive heart and chronic kidney disease with heart failure and stage 1 through stage 4 chronic kidney disease, or unspecified chronic kidney disease; F05 Delirium due to known physiological condition; G21.19 Other drug induced secondary parkinsonism; N18.4 Chronic kidney disease, stage 4 (severe); D63.1 Anemia in chronic kidney disease; D72.829 Elevated white blood cell count, unspecified; E03.9 Hypothyroidism, unspecified; Z66 Do not resuscitate; E86.1 Hypovolemia; E87.5 Hyperkalemia; F03.90 Unspecified dementia, unspecified severity, without behavioral disturbance, psychotic disturbance, mood disturbance, and anxiety; F32.9 Major depressive disorder, single episode, unspecified; Z51.5 Encounter for palliative care; G25.81 Restless legs syndrome; F41.9 Anxiety disorder, unspecified; M19.90 Unspecified osteoarthritis, unspecified site; Z60.2 Problems related to living alone; I50.9 Heart failure, unspecified; K21.9 Gastro-esophageal reflux disease without esophagitis; Z79.899 Other long term (current) drug therapy; Z82.49 Family history of ischemic heart disease and other diseases of the circulatory system; Z85.038 Personal history of other malignant neoplasm of large intestine; Z86.73 Personal history of transient ischemic attack (TIA), and cerebral infarction without residual deficits; Z87.440 Personal history of urinary (tract) infections; Z88.8 Allergy status to other drugs, medicaments and biological substances; Z90.49 Acquired absence of other specified parts of digestive tract; Z68.24 Body mass index [BMI] 24.0-24.9, adult; Z87.01 Personal history of pneumonia (recurrent)
CPT/HCPCS: 36415; 70450; 71010; 80048; 80053; 81001; 83605; 83735; 85007; 85027; 87040; 87641; 93005; 94640; 94760; G0238; G0481; J1650; J2060; J2270; J7030; J7620; 92526; 92610; 97116; 97530; 97535; 99285-25